=== PATIENT | female | born 1930 | race Caucasian/White ===

== ENCOUNTER 2017-07-28 12:05 | Inpatient (IN) ==
--- NOTE | 2017-07-28 13:07 | XRay Report ---
XR chest 1V portable Indication: Shortness of breath Comparison: 15 August 2015 Findings: The heart and mediastinum are normal in size and configuration. The pulmonary vascularity is normal in caliber. No lung infiltrates, effusions, pneumothorax or other abnormality is demonstrated. Impression: No acute cardiopulmonary disease. PROCEDURE INTERPRETED AT [facility] DEPARTMENT OF RADIOLOGY Final Report Signed by: Dr. Benito Fernandez
[2017-07-28 13:40] LABS: Basophils % 0.2 % (0.0-0.8); Eosinophils # 0.1 10*3/uL (0.0-0.87); Eosinophils % 0.7 % (0.00-10.9); Hematocrit 27.3 VOL% (35.7-47.0); Immature Granulocytes % 1.3 %; Immature Granulocytes Absolute 0.17 #; Lymphocytes # 0.5 10*3/uL (1.4-4.0); Lymphocytes % 3.8 % (21.3-54.2); Mean Corpuscular Hemoglobin 29 PG (27-34); Mean Corpuscular Volume 88.6 FL (87-102); Mean Platelet Volume 11.2 FL (9.6-12.0); Monocytes # 0.7 10*3/uL (0.11-0.8); Neutrophils # 11.5 10*3/uL (1.4-7.4); Platelet Count 129 T/CUMM (130-400); Red Blood Count 3.08 MC/CUMM (3.8-5.5); Red Cell Distribution Width 15.9 % (9.3-17.3); White Blood Count 12.9 T/CUMM (4-12)
[2017-07-28 14:16] LABS: Calcium 8.2 MG/DL (8.5-10.1); Osmolality,Calculated 288.8 MOS/KG (273-304); Potassium 4.2 MMOL/L (3.5-5.1)
--- NOTE | 2017-07-28 14:21 | Emergency Department Note ---
Hellen Abreu Brittany, am scribing for, and in the presence of, Mars Candelaria MD 13:01. Teagan Abreu Phillip K, MD, personally performed the services described in this documentation, ascribed by Coleen Macedo in my presence, and it is both accurate and complete 420 . Arrival - Arrival Chief Complaint: Upper Respiratory Stated Complaint: hard time breathing ED Nursing Triage Note: sore throat with cough and congestion and body aches - pt states that she is also having lower back pain Mode of Arrival: Wheelchair - History of Present Illness HPI Narrative: This is an 87 y/o white female,who presents to the ED with c/o URI-like Sx which started yesterday. She reports for the past 24 hours, she has been coughing and congestion. She notes a low grade fever and left-sided back pain. She denies any vomiting, diarrhea or MARTINO. Pt has no other complaints/pain in the ED at this time. Pt has a PMHx of thyroid disorder, HTN, renal problems, bowel obstruction, GI problems, GERD, back/neck problems, degenerative disk disease, anemia, OA, herniated disk, and musculoskeletal problems. Pt has had an appendectomy, abdominal surgery, hysterectomy, and EGD. PT has a family medical Hx of heart disease, stroke, HTN, and diabetes. Pt denies a social Hx. Onset (ago): day(s) (yesterday) Consistency: constant Severity: moderate Date of Last Menstrual Period: hyster Allergies/Adverse Reactions: Allergies Allergy/AdvReac Type Severity Reaction Status Date / Time amlodipine [From Norvasc] Allergy Mild RASH Verified 05/23/17 09:07 simvastatin Allergy Unknown Unknown/Unable Verified 05/23/17 09:07 to obtain Penicillins AdvReac Severe Swelling Verified 05/23/17 09:07 of Lip/Tongue/Throat adhesive AdvReac Mild BLISTER Verified 05/23/17 09:07 ezetimibe [From Zetia] AdvReac Unknown Unknown/Unable Verified 05/23/17 09:07 to obtain felodipine [From Plendil] AdvReac Unknown Unknown/Unable Verified 05/23/17 09:07 to obtain guanfacine [From Tenex] AdvReac Unknown Unknown/Unable Verified 05/23/17 09:07 to obtain Home Medications: Home Medications Medication Instructions Recorded Confirmed Type Furosemide Tab [Lasix Tab] 40 mg PO DAILY 05/23/15 05/22/17 History Levothyroxine Tab [Synthroid Tab] 75 mcg PO DAILY@0700 05/23/15 05/23/17 History NIFEdipine XL TAB [Procardia Xl] 30 mg PO BEDTIME 05/23/15 05/23/17 History Aspirin [Ecotrin] 81 mg PO BEDTIME 08/13/15 05/22/17 History Pregabalin [Lyrica] 75 mg PO DAILY 03/30/16 05/23/17 History Carvedilol 25 mg PO BID 04/27/17 05/23/17 History Multivit/Folic Acid/Vit K1 1 each PO DAILY 04/27/17 05/22/17 History [One-A-Day Women's 50 Plus Tab] Valsartan 320 mg PO DAILY 04/27/17 05/23/17 History cloNIDine TAB [Catapres Tab] 0.1 mg PO TID PRN 04/27/17 05/22/17 History hydrALAZINE TAB [Apresoline Tab] 100 mg PO TID 04/27/17 05/23/17 History Review of System - Review of System 12 point system: reviewed and no additional remarkable complaints except as stated - Review of System Constitutional: Present: fever (Low grade fever) Head/Ears/Nose/Throat: Present: sore throat Respiratory: Present: cough, other (Congestion ) Gastrointestinal: Absent: vomiting, diarrhea Musculoskeletal: Present: lower back pain (Left sided back pain ) Neurological: Absent: headache Medical,Surgical,& Family Hx - Medical History Cardio: History of: Hypertension (this has been managed by Dr. Pan and has been very high in the past) No history of: Aneurysm, Cardiac Dysrhythmia, Cerebrovascular Disease, Congenital Heart Disease, CHF, CAD, [place], Pacemaker, PVD, Valvular Heart Disease, Cardiovascular Problems Psychological: No history of: Anxiety Disorders, ADHD, Behavior Problems, Bipolar Disorder, Depression, Previous Suicide Attempt, Psychiatric/Substance Abuse Tx, Schizophrenia, Violent Behavior, Psychiatric Problems Neurology: No history of: Brain Aneurysm, Cerebral Hemorrhage, Cerebrovascular Accident , Cerebral Palsy, Dementia, Migraine, Multiple Sclerosis, Parkinson's Disease, Peripheral Neuropathy, Seizures, TIA, Vertigo, Neurologocal Cancer HEENT: History of: Eye Problem (GLASSES), Dental Problems (UPPER AND LOWER PARTIAL) No history of: Ear Problem, Glaucoma, HEENT Problems Endocrine: History of: Thyroid Disorder No history of: Adrenal Disease, Diabetes Mellitus (IDDM), Diabetes Mellitus ( NIDDM), Dyslipidemia, Endocrine Cancer, Endocrine Problems Rheumatology: No history of;: Fibromyalgia, Gout, Myasthenia Gravis, Rheumatoid Arthritis, Sjogrens, Systemic Lupus Erythematosus, Rheumatological Problems Respiratory: No history of: Asthma, Bronchitis, COPD, Intubation, Obstructive Sleep Apnea , Pulmonary Embolism, Pulmonary Hypertension, Pneumonia, Lung Cancer Comment Only: Respiratory Problems (FLU VAC- YES; PNEU VAC-?) Renal: History of: Renal Problems (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) No history of: Renal (Kidney) Cancer, Dialysis, Renal Failure Genitourinary: No history of: Bladder Problem, Kidney Stones, Recurring Urinary Tract Infections, Genitourinary Cancer, Problems Gastrointestinal: History of: Bowel Obstruction (bile duct surgery), GERD, GI Problems No history of: Clostridium Difficile, Crohn's Disease, Diverticulitis/ Diverticulosis, Esophageal Varices, Gastrointestinal Bleed, Hemorrhoids, Hematochezia, Hepatitis, Liver Problems, Pancreatitis, Polyps, Ulcerative Colitis, Gastrointestinal Cancer Musculoskeletal: History of: Back/Neck Problems, Degenerative Disk Disease ( deteriating disc. DR BRUNNER BACK INJECTIONS, LAST INJECTION 03/2017.), Herniated Disk, Osteoporosis, Musculoskeletal Problems No history of: Amputation, Musculoskeletal Cancer Hematology: History of: Anemia (BEING WORKED UP BY DR NGO) No history of: Blood Transfusion Reaction, Bleeding Problems, Clotting Problems, Sickle Cell Disease, Hematologic Cancer, Blood Disorders Reproductive: No history of: Abnormal Pap Smear, Breast Cancer, Endometriosis, Ectopic , Ovarian Cysts, Complication, Sexually Transmitted Disorders , Reproductive Cancer, Reproductive Problems Other: No history of: Anesthesia Reactions, Anaphylaxis, Cancer, Eczema, HIV, Malignant Hyperthermia, MRSA, Vancomycin-Resistant Enterococci, Skin Problems, Miscellaneous Medical Problems - Surgical History Cardiac Surgeries: Patient Denies: Femoral-Popliteal Bypass Graft, Cardiac Catheterization, Cardiac Surgery, Carotid Endarterectomy, Internal Defibrillator, Vascular Access Devices Thoracic Surgeries: Patient denies;: Kidney (Renal Surgery), Lithotripsy, Nephrectomy, Organ Transplant, Lobectomy Neurologic Surgeries: Patient denies: Brain Aneurysm, Cerebral Hemorrhage, Neurologic Surgery HEENT Surgeries: Patient denies: Carotid Endarterectomy, Eye Surgery, Thyroid Surgery, Tonsilectomy & Adenoidectomy Abdominal Surgeries: Surgical HX of: Abdominal Surgery, Appendectomy, EGD Patient denies: Cholecystectomy, Colonoscopy, Gastric Bypass Surgery, Hernia Repair, Splenectomy Reproductive Surgeries: Surgical HX of;: Hysterectomy (he thinks and ovary remains) Patient denies;: Breast Surgery, Section, Cystoscopy, Dilation and Curettage, Genitourinary Surgery, Gynecologic Surgery, Tubal Ligation Orthopedic Surgeries: Patient denies;: Implanted Devices, Orthopedic Surgery, Spinal Surgery, Total Hip Replacement, Total Knee Replacement - Family History Family History: Reports;: Family Diabetes (daughter), Family Heart Disease ( sister-mi), Family Hypertension (parents), Family Stroke (parents) Denies;: Family Anesthesia Reaction, Family Cancer, Family Psychiatric Problems - Social History Smoking Status: Never smoker Frequency of Alcohol Use: None Type of Drug Use: None Exam Vital Signs: Vital Signs Temperature 99.8 F H 07/28/17 12:15 Pulse Rate 79 07/28/17 12:15 Respiratory Rate 20 07/28/17 12:15 Blood Pressure 126/54 07/28/17 12:15 O2 Sat by Pulse Oximetry 96 07/28/17 12:12 - General General appearance: alert, in no apparent distress - Head Head exam: Present: atraumatic, normocephalic, normal inspection - Eye Eye exam: Present: normal appearance, PERRL, EOMI. Absent: nystagmus - ENT ENT exam: Present: normal oropharynx, mucous membranes moist - Neck Neck exam: Present: normal inspection, full ROM, trachea midline - Chest Chest inspection: Present: normal inspection, symmetric chest wall rise. Absent : tenderness - Respiratory Respiratory exam: Present: normal lung sounds bilaterally. Absent: respiratory distress, rhonchi, stridor, wheezes - Cardiovascular Cardiovascular exam: Present: regular rate, normal rhythm, normal heart sounds. Absent: murmur, rubs, gallop, clicks - Abdominal Exam Abdominal exam: Present: soft, normal bowel sounds. Absent: distention, tenderness, guarding, rebound, rigidity - Rectal Exam Rectal exam: Present: deferred - Extremities Exam Extremities exam: Present: normal inspection, full ROM, normal capillary refill. Absent: tenderness, pedal edema - Back Exam Back exam: Present: CVA tenderness (L). Absent: tenderness, muscle spasm, rashes - Neurological Exam Neurological exam: Present: alert, oriented X3, CN II-XII intact. Absent: motor sensory deficit - Psychiatric Psychiatric exam: Present: normal affect, normal mood. Absent: depressed, agitated, anxious, flat affect, manic - Skin Skin exam: Present: warm, dry, intact, normal color. Absent: rash, cyanosis, diaphoresis Course Course Narrative: Patient discussed with the hospitalist. Results - Labs CBC & BMP: 07/28/17 13:30 07/28/17 13:30 Lab Results: I have reviewed the patients labs Labs: Laboratory Tests 07/28/17 13:30 WBC 12.9 H RBC 3.08 L Hgb 9.0 L Hct 27.3 L MCV 88.6 MCH 29 MCHC 33.0 RDW 15.9 Plt Count 129 L MPV 11.2 Neut % (Auto) 89.0 H Lymph % (Auto) 3.8 L [place] % (Auto) 5.0 Eos % (Auto) 0.7 Baso % (Auto) 0.2 Neut # (Auto) 11.5 H Lymph # (Auto) 0.5 L [place] # (Auto) 0.7 Eos # (Auto) 0.1 Baso # (Auto) 0.0 Immature Gran % 1.3 Nucleated RBC % 0.0 Immature Gran # 0.17 Nucleated RBCs # 0.00 Immature Plt Fraction 0.0 Laboratory Tests 07/28/17 07/28/17 13:30 13:30 Sodium 137 Potassium 4.2 Chloride 107 Carbon Dioxide 24 Anion Gap 10.2 BUN 43 H Creatinine 1.80 H GFR Calculation 25 BUN/Creatinine Ratio 23.00 H Glucose 184 H Calculated Osmolality 288.8 Calcium 8.2 L Urine Color Emily Urine Appearance Cloudy Urine pH 5.0 Ur Specific [place] 1.013 Urine Protein 100 Urine Glucose (UA) Negative Urine Ketones Negative Urine Blood Negative Urine Nitrate Negative Urine Bilirubin Negative Urine Urobilinogen < 2.0 H Urine Leukocytes Large H Urine RBC 8 Urine WBC 63 Ur Squamous Epith Cells Many Urine Bacteria Many Urine Mucus Many Ur Culture Indicated? Results to follow Laboratory Tests 07/28/17 15:10 Urine Color Yellow Urine Appearance Slightly hazy Urine pH 5.0 Ur Specific [place] 1.013 Urine Protein 100 Urine Glucose (UA) Negative Urine Ketones Negative Urine Blood Negative Urine Nitrate Negative Urine Bilirubin Negative Urine Urobilinogen < 2.0 H Urine Leukocytes Negative Urine WBC 4 Ur Squamous Epith Cells Occasional Hyaline Casts 8 Urine Mucus Occasional - Diagnostic Findings Procedure: Chest x-ray: report reviewed by me (No acute cardiopulmonary disease) Disposition Clinical Impression: Fever unknown etiology, Anemia, Possible viral syndrome Case discussed with: patient Disposition: Still a Patient Condition: Guarded Additional Instructions: Admit to the hospitalist.
[2017-07-28 14:30] LABS: Apearance,Urine CLOUDY (Clear); Bacteria,Urine Many /HPF (Few); Bilirubin,Urine Negative (Negative); Blood, Urine Negative (Negative); Glucose,Urine (UA) Negative (Negative); Ketones,Urine Negative (Negative); Mucus,Urine Many /LPF (Occasional); Nitrite,Urine Negative (Negative); Protein,Urine 100 MG/DL; RBC,Urine 8 /HPF (0-4); Squamous Epithelial Cell,Urine Many /HPF (0-10); Urine Color Amber (Yellow); Urine Specific Gravity 1.013 (1.001-1.035); Urine Urobilinogen < 2.0 EU/DL (0.2-1.0); WBC,Urine 63 /HPF (0-6)
[2017-07-28 15:38] LABS: Apearance,Urine Slightly Hazy (Clear); Bilirubin,Urine Negative (Negative); Blood, Urine Negative (Negative); Glucose,Urine (UA) Negative (Negative); Hyaline Casts,Urine 8 /LPF (0-3); Ketones,Urine Negative (Negative); Mucus,Urine Occasional /LPF (Occasional); Nitrite,Urine Negative (Negative); Protein,Urine 100 MG/DL; Squamous Epithelial Cell,Urine Occasional /HPF (0-10); Urine Color Yellow (Yellow); Urine Specific Gravity 1.013 (1.001-1.035); Urine Urobilinogen < 2.0 EU/DL (0.2-1.0); WBC,Urine 4 /HPF (0-6)
[2017-07-28] MEDS ORDERED: SODIUM CHLORIDE 0.9% 500 ML IV ONE (17:00)
--- NOTE | 2017-07-28 17:07 | Hospitalist History & Physical ---
Assessment and Plan (1) Leukocytosis Status: Acute Assessment and plan: cxr negative, ua negative, sepsis order set used, lactic acid, NS bolus in ER, azithromycin IV, blood cx times 2, flu swab Current Visit: Yes (2) Acute renal failure Status: Acute Assessment and plan: gentle hydration with NS, Current Visit: Yes (3) Dehydration Status: Acute Assessment and plan: NS bolus, check orthostatics Current Visit: Yes (4) Thrombocytopenia Status: Acute Assessment and plan: chronic Current Visit: No (5) Anemia Status: Acute Assessment and plan: drop from 12 to 9, guaiac stool, protonix bid, cecelia Rasmussen asa Current Visit: Yes History of Present Illness Chief complaint: back pain History of present illness: Ms. Tran is a 87 year old female who presents to the ED with back pain. Patient gets injections every [address] James. Her last injection was in June 2017. She said her back is been hurting worse and that is what brought her into the emergency room. She denies any kind of fever she denies shortness of breath to me. She denies cough or congestion. She denies any chills. She has a low-grade fever. Chest x-ray is negative and her urine by straight cath was negative. Patient has diffuse muscle aches. We will do a flu swab. Pt has no other complaints/pain in the ED at this time. Pt has a PMHx of thyroid disorder, HTN, renal problems, bowel obstruction, GI problems, GERD, back/neck problems, degenerative disk disease, anemia, OA, herniated disk, and musculoskeletal problems. Pt has had an appendectomy, abdominal surgery, hysterectomy, and EGD. PT has a family medical Hx of heart disease, stroke, HTN , and diabetes. Pt denies a social Hx. Home Medications Medication Instructions Recorded Confirmed Type Furosemide Tab [Lasix Tab] 40 mg PO QAM 05/23/15 07/28/17 History Levothyroxine Tab [Synthroid Tab] 75 mcg PO DAILY@0700 05/23/15 07/28/17 History NIFEdipine XL TAB [Procardia Xl] 30 mg PO BEDTIME 05/23/15 07/28/17 History Aspirin [Ecotrin] 81 mg PO BEDTIME 08/13/15 07/28/17 History Pregabalin [Lyrica] 75 mg PO QAM 03/30/16 07/28/17 History Carvedilol 25 mg PO BID 04/27/17 07/28/17 History Multivit/Folic Acid/Vit K1 1 each PO QAM 04/27/17 07/28/17 History [One-A-Day Women's 50 Plus Tab] Valsartan 320 mg PO QAM 04/27/17 07/28/17 History cloNIDine TAB [Catapres Tab] 0.1 mg PO TID PRN 04/27/17 07/28/17 History hydrALAZINE TAB [Apresoline Tab] 100 mg PO TID 04/27/17 07/28/17 History Allergies Allergy/AdvReac Type Severity Reaction Status Date / Time amlodipine [From [facility]] Allergy Mild RASH Verified 05/23/17 09:07 simvastatin Allergy Unknown Unknown/Unable Verified 05/23/17 09:07 to obtain Penicillins AdvReac Severe Swelling Verified 05/23/17 09:07 of Lip/Tongue/Throat adhesive AdvReac Mild BLISTER Verified 05/23/17 09:07 ezetimibe [From Zetia] AdvReac Unknown Unknown/Unable Verified 05/23/17 09:07 to obtain felodipine [From Plendil] AdvReac Unknown Unknown/Unable Verified 05/23/17 09:07 to obtain guanfacine [From Tenex] AdvReac Unknown Unknown/Unable Verified 05/23/17 09:07 to obtain Medical,Surgical,& Family Hx - Medical History Cardio: History of: Hypertension (this has been managed by Dr. Pan and has been very high in the past) No history of: Aneurysm, Cardiac Dysrhythmia, Cerebrovascular Disease, Congenital Heart Disease, CHF, CAD, [place], Pacemaker, PVD, Valvular Heart Disease, Cardiovascular Problems Psychological: No history of: Anxiety Disorders, ADHD, Behavior Problems, Bipolar Disorder, Depression, Previous Suicide Attempt, Psychiatric/Substance Abuse Tx, Schizophrenia, Violent Behavior, Psychiatric Problems Neurology: No history of: Brain Aneurysm, Cerebral Hemorrhage, Cerebrovascular Accident , Cerebral Palsy, Dementia, Migraine, Multiple Sclerosis, Parkinson's Disease, Peripheral Neuropathy, Seizures, TIA, Vertigo, Neurologocal Cancer HEENT: History of: Eye Problem (GLASSES), Dental Problems (UPPER AND LOWER PARTIAL) No history of: Ear Problem, Glaucoma, HEENT Problems Endocrine: History of: Thyroid Disorder No history of: Adrenal Disease, Diabetes Mellitus (IDDM), Diabetes Mellitus ( NIDDM), Dyslipidemia, Endocrine Cancer, Endocrine Problems Rheumatology: No history of;: Fibromyalgia, Gout, Myasthenia Gravis, Rheumatoid Arthritis, Sjogrens, Systemic Lupus Erythematosus, Rheumatological Problems Respiratory: No history of: Asthma, Bronchitis, COPD, Intubation, Obstructive Sleep Apnea , Pulmonary Embolism, Pulmonary Hypertension, Pneumonia, Lung Cancer Comment Only: Respiratory Problems (FLU VAC- YES; PNEU VAC-?) Renal: History of: Renal Problems (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) No history of: Renal (Kidney) Cancer, Dialysis, Renal Failure Genitourinary: No history of: Bladder Problem, Kidney Stones, Recurring Urinary Tract Infections, Genitourinary Cancer, Problems Gastrointestinal: History of: Bowel Obstruction (bile duct surgery), GERD, GI Problems No history of: Clostridium Difficile, Crohn's Disease, Diverticulitis/ Diverticulosis, Esophageal Varices, Gastrointestinal Bleed, Hemorrhoids, Hematochezia, Hepatitis, Liver Problems, Pancreatitis, Polyps, Ulcerative Colitis, Gastrointestinal Cancer Musculoskeletal: History of: Back/Neck Problems, Degenerative Disk Disease ( deteriating disc. DR JAMES BACK INJECTIONS, LAST INJECTION 03/2017.), Herniated Disk, Osteoporosis, Musculoskeletal Problems No history of: Amputation, Musculoskeletal Cancer Hematology: History of: Anemia (BEING WORKED UP BY DR NGO) No history of: Blood Transfusion Reaction, Bleeding Problems, Clotting Problems, Sickle Cell Disease, Hematologic Cancer, Blood Disorders Reproductive: No history of: Abnormal Pap Smear, Breast Cancer, Endometriosis, Ectopic , Ovarian Cysts, Complication, Sexually Transmitted Disorders , Reproductive Cancer, Reproductive Problems Other: No history of: Anesthesia Reactions, Anaphylaxis, Cancer, Eczema, HIV, Malignant Hyperthermia, MRSA, Vancomycin-Resistant Enterococci, Skin Problems, Miscellaneous Medical Problems - Surgical History Cardiac Surgeries: Patient Denies: Femoral-Popliteal Bypass Graft, Cardiac Catheterization, Cardiac Surgery, Carotid Endarterectomy, Internal Defibrillator, Vascular Access Devices Thoracic Surgeries: Patient denies;: Kidney (Renal Surgery), Lithotripsy, Nephrectomy, Organ Transplant, Lobectomy Neurologic Surgeries: Patient denies: Brain Aneurysm, Cerebral Hemorrhage, Neurologic Surgery HEENT Surgeries: Patient denies: Carotid Endarterectomy, Eye Surgery, Thyroid Surgery, Tonsilectomy & Adenoidectomy Abdominal Surgeries: Surgical HX of: Abdominal Surgery, Appendectomy, EGD Patient denies: Cholecystectomy, Colonoscopy, Gastric Bypass Surgery, Hernia Repair, Splenectomy Reproductive Surgeries: Surgical HX of;: Hysterectomy (he thinks and ovary remains) Patient denies;: Breast Surgery, Section, Cystoscopy, Dilation and Curettage, Genitourinary Surgery, Gynecologic Surgery, Tubal Ligation Orthopedic Surgeries: Patient denies;: Implanted Devices, Orthopedic Surgery, Spinal Surgery, Total Hip Replacement, Total Knee Replacement - Family History Family History: Reports;: Family Diabetes (daughter), Family Heart Disease ( sister-mi), Family Hypertension (parents), Family Stroke (parents) Denies;: Family Anesthesia Reaction, Family Cancer, Family Psychiatric Problems - Social History Smoking Status: Never smoker Frequency of Alcohol Use: None Type of Drug Use: None Marital Status: Lives With:: Alone Functional capacity: independent ambulation - Constitutional Constitutional: Present: fatigue. Absent: fever(s), frequent falls, headache(s) - EENT Eyes: Absent: blurry vision, diplopia Ears: Absent: decreased hearing, ear discharge Nose, mouth and throat: Absent: headache(s), sore throat - Cardiovascular Cardiovascular: Absent: chest pain at rest, dyspnea, dyspnea on exertion, edema , lightheadedness - Respiratory Respiratory: Absent: cough, dyspnea, dyspnea on exertion, wheezing, change in phlegm color - Gastrointestinal Gastrointestinal: Absent: constipation, diarrhea, nausea, vomiting - Genitourinary Genitourinary: Absent: difficulty urinating, dysuria - Musculoskeletal Musculoskeletal: Present: arthralgias, back pain - Neurological Neurological: Absent: confusion, dizziness, headache(s), syncope - Psychiatric Psychiatric: Absent: anxiety, depression - Endocrine Endocrine: Absent: cold intolerance, fatigue, heat intolerance - Hematologic/Lymphatic Hematologic/Lymphatic: Absent: easy bleeding, easy bruising Exam - Constitutional Vitals: Period Temp Pulse Resp BP Sys/[place]all Pulse Ox Last 24 Hr 99.8 F-99.8 F 79-79 20-20 126-126/54-54 96 General appearance: normal weight, no acute distress - Head Head exam: Present: normal inspection, normocephalic - Eye Eye exam: Present: EOMI. Absent: scleral icterus Pupils: Present: ARGENIS, normal accommodation - ENT ENT exam: Present: normal exam, normal external ear exam - Neck Neck exam: Absent: lymphadenopathy, thyromegaly - Respiratory Respiratory exam: Present: clear to auscultation bilaterally. Absent: rhonchi, wheezes - Cardiovascular Cardiovascular exam: Present: regular rate and rhythm. Absent: systolic murmur - GI/Abdominal GI/Abdominal exam: Present: normal bowel sounds, soft. Absent: tenderness - Extremities Exam Extremities exam: Present: normal inspection, normal capillary refill - Neurological Exam Neurological exam: Present: alert, oriented X3. Absent: motor sensory deficit - Psychiatric Psychiatric exam: Present: normal affect, normal mood - Skin Skin exam: Present: normal color, warm Results - Labs CBC & BMP: 07/28/17 13:30 07/28/17 13:30 Lab Results: I have reviewed the past 24 hour labs Labs: UA negative - Diagnostic Findings Procedure: Chest x-ray: report reviewed by me (Nothing acute)
[2017-07-28] MEDS ORDERED: AZITHROMYCIN INJ 500 MG in SODIUM CHLORIDE 0.9% 250 ML IV SCH (18:00)
[2017-07-28 18:39] LABS: Band Neutrophils 1 % (0-10); Lymphocytes 3 % (20-55); Platelet Estimate Normal; Segmented Neutrophils 93 % (50-85); Total Cells Counted 100
[2017-07-28] MEDS: BISACODYL 5 MG TABLET PO SCH (18:46)
[2017-07-28] MEDS: SODIUM CHLORIDE 0.9% 1,000 ML IV SCH (18:46)
[2017-07-28 20:06] LABS: % Iron Saturation 5.6 % (18-50); Magnesium 2.5 MG/DL (1.8-2.4); Thyroid Stimulating Hormone 0.321 uIU/ml (0.358-3.74)
[2017-07-28] MEDS: PANTOPRAZOLE 40 MG TABLET PO SCH (20:45)
[2017-07-29] MEDS: LEVOTHYROXINE 75 MCG TABLET PO SCH (06:17)
[2017-07-29 06:30] LABS: Basophils % 0.1 % (0.0-0.8); Eosinophils % 0.1 % (0.00-10.9); Hematocrit 24.3 VOL% (35.7-47.0); Hemoglobin 7.8 GM/DL (12.0-16.0); Lymphocytes # 0.4 10*3/uL (1.4-4.0); Lymphocytes % 4.5 % (21.3-54.2); Mean Corpuscular HGB Conc 32.1 GM/DL (32-36); Mean Corpuscular Hemoglobin 29 PG (27-34); Mean Corpuscular Volume 89.7 FL (87-102); Mean Platelet Volume 11.6 FL (9.6-12.0); Monocytes # 0.5 10*3/uL (0.11-0.8); Neutrophils # 8.8 10*3/uL (1.4-7.4); Neutrophils % 89.3 % (38.7-73.9); Platelet Count 111 T/CUMM (130-400); Red Blood Count 2.71 MC/CUMM (3.8-5.5); White Blood Count 9.8 T/CUMM (4-12)
[2017-07-29 06:58] LABS: Calcium 7.4 MG/DL (8.5-10.1); Osmolality,Calculated 291.3 MOS/KG (273-304); Potassium 3.8 MMOL/L (3.5-5.1)
[2017-07-29 07:57] LABS: Hypochromasia 1+; Spherocytes Few
[2017-07-29] MEDS: BISACODYL 5 MG TABLET PO SCH (08:21)
[2017-07-29] MEDS: PANTOPRAZOLE 40 MG TABLET PO SCH ×2 (08:21→20:17)
[2017-07-29] MEDS: PREGABALIN 75 MG CAPSULE PO SCH (08:21)
[2017-07-29] MEDS: SODIUM CHLORIDE 0.9% 1,000 ML IV SCH (08:29)
[2017-07-29] MEDS: ALBUTEROL/IPRATROPIUM 3 ML NEB RESP TX SCH ×3 (12:15→19:59)
[2017-07-29] MEDS ORDERED: FUROSEMIDE 40 MG/4 ML VIAL ONE (12:46)
--- NOTE | 2017-07-29 12:52 | Pulmonology Consult Note ---
Assessment and Plan (1) Congestive heart failure Status: Acute Assessment and plan: Clinically she is in heart failure with bibasilar rales wheezing and radiographically. Not sure why. Will check cardiac isoenzymes, BNP and echo. Ask cardiology to see her. She has no history of chronic lung disease or asthma. Current Visit: Yes (2) Anemia Status: Acute Assessment and plan: A chronic anemia may be aggravating her congestive failure. Current Visit: Yes (3) Renal insufficiency Status: Acute Assessment and plan: Her creatinine is only slightly higher than it was 2 years ago at 1.8 compared to 1.4. Current Visit: Yes History of Present Illness Chief complaint: Shortness of breath History of present illness: Ms. Tran is a 87 year old female who was admitted yesterday with back pain. She had some renal insufficiency with a creatinine of 1.8 and was felt to be dehydrated. She did have an elevated white blood count and no fever. She was felt to possibly be septic and was given a bolus of saline yesterday and IV saline 75 mL an hour overnight. I was asked to see her when I was on rounds up here when Dr. Patiño had just seen her and said she was in respiratory distress. She does not have any known history of lung disease. She does have hypertension but no history of congestive heart failure that she is aware of. She is followed by Dr. Masterson for her hypertension. Reviewing her records she had a creatinine of 1.4-1.6 in 2014 and it was 1.8 on admission this time. Home Medications Medication Instructions Recorded Confirmed Type Furosemide Tab [Lasix Tab] 40 mg PO QAM 05/23/15 07/28/17 History Levothyroxine Tab [Synthroid Tab] 75 mcg PO DAILY@0700 05/23/15 07/28/17 History NIFEdipine XL TAB [Procardia Xl] 30 mg PO BEDTIME 05/23/15 07/28/17 History Aspirin [Ecotrin] 81 mg PO BEDTIME 08/13/15 07/28/17 History Pregabalin [Lyrica] 75 mg PO QAM 03/30/16 07/28/17 History Carvedilol 25 mg PO BID 04/27/17 07/28/17 History Multivit/Folic Acid/Vit K1 1 each PO QAM 04/27/17 07/28/17 History [One-A-Day Women's 50 Plus Tab] Valsartan 320 mg PO QAM 04/27/17 07/28/17 History cloNIDine TAB [Catapres Tab] 0.1 mg PO TID PRN 04/27/17 07/28/17 History hydrALAZINE TAB [Apresoline Tab] 100 mg PO TID 04/27/17 07/28/17 History Allergies Allergy/AdvReac Type Severity Reaction Status Date / Time amlodipine [From Norvasc] Allergy Mild RASH Verified 05/23/17 09:07 simvastatin Allergy Unknown Unknown/Unable Verified 05/23/17 09:07 to obtain Penicillins AdvReac Severe Swelling Verified 05/23/17 09:07 of Lip/Tongue/Throat adhesive AdvReac Mild BLISTER Verified 05/23/17 09:07 ezetimibe [From Zetia] AdvReac Unknown Unknown/Unable Verified 05/23/17 09:07 to obtain felodipine [From Plendil] AdvReac Unknown Unknown/Unable Verified 05/23/17 09:07 to obtain guanfacine [From Tenex] AdvReac Unknown Unknown/Unable Verified 05/23/17 09:07 to obtain 12 point system: reviewed and no additional remarkable complaints except as stated - Constitutional Constitutional: Present: fatigue - Cardiovascular Cardiovascular: Present: dyspnea, dyspnea on exertion - Respiratory Respiratory: Present: dyspnea, dyspnea on exertion, wheezing - Musculoskeletal Musculoskeletal: Present: arthralgias, back pain Exam (Pulmon[place]) H&P - Constitutional Vitals: Period Temp Pulse Resp BP Sys/Woodall Pulse Ox Last 24 Hr 97.3 F-99.9 F 74-84 18-29 119-153/49-95 87-99 Exam: Patient is anxious. O2 sat 88% on 2 L. Pupils react to light. Throat is clear. Neck supple no bruits. There is some jugular venous distention. Chest reveals bibasilar rales. I do hear some expiratory wheezes. Heart rate is around 90. No murmurs. Abdomen soft nontender no masses. Bowel sounds present. Extremities no clubbing or cyanosis trace of edema. Calves nontender. Medical,Surgical,& Family Hx - Medical History Cardio: History of: Hypertension (this has been managed by Dr. Pan and has been very high in the past) No history of: Aneurysm, Cardiac Dysrhythmia, Cerebrovascular Disease, Congenital Heart Disease, CHF, CAD, [place], Pacemaker, PVD, Valvular Heart Disease, Cardiovascular Problems Psychological: No history of: Anxiety Disorders, ADHD, Behavior Problems, Bipolar Disorder, Depression, Previous Suicide Attempt, Psychiatric/Substance Abuse Tx, Schizophrenia, Violent Behavior, Psychiatric Problems Neurology: No history of: Brain Aneurysm, Cerebral Hemorrhage, Cerebrovascular Accident , Cerebral Palsy, Dementia, Migraine, Multiple Sclerosis, Parkinson's Disease, Peripheral Neuropathy, Seizures, TIA, Vertigo, Neurologocal Cancer HEENT: History of: Eye Problem (GLASSES), Dental Problems (UPPER AND LOWER PARTIAL) No history of: Ear Problem, Glaucoma, HEENT Problems Endocrine: History of: Thyroid Disorder No history of: Adrenal Disease, Diabetes Mellitus (IDDM), Diabetes Mellitus ( NIDDM), Dyslipidemia, Endocrine Cancer, Endocrine Problems Rheumatology: No history of;: Fibromyalgia, Gout, Myasthenia Gravis, Rheumatoid Arthritis, Sjogrens, Systemic Lupus Erythematosus, Rheumatological Problems Respiratory: No history of: Asthma, Bronchitis, COPD, Intubation, Obstructive Sleep Apnea , Pulmonary Embolism, Pulmonary Hypertension, Pneumonia, Lung Cancer Comment Only: Respiratory Problems (FLU VAC- YES; PNEU VAC-?) Renal: History of: Renal Problems (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) No history of: Renal (Kidney) Cancer, Dialysis, Renal Failure Genitourinary: No history of: Bladder Problem, Kidney Stones, Recurring Urinary Tract Infections, Genitourinary Cancer, Problems Gastrointestinal: History of: Bowel Obstruction (bile duct surgery), GERD, GI Problems No history of: Clostridium Difficile, Crohn's Disease, Diverticulitis/ Diverticulosis, Esophageal Varices, Gastrointestinal Bleed, Hemorrhoids, Hematochezia, Hepatitis, Liver Problems, Pancreatitis, Polyps, Ulcerative Colitis, Gastrointestinal Cancer Musculoskeletal: History of: Back/Neck Problems, Degenerative Disk Disease ( deteriating disc. DR BRUNNER BACK INJECTIONS, LAST INJECTION 03/2017.), Herniated Disk, Osteoporosis, Musculoskeletal Problems No history of: Amputation, Musculoskeletal Cancer Hematology: History of: Anemia (BEING WORKED UP BY DR NGO) No history of: Blood Transfusion Reaction, Bleeding Problems, Clotting Problems, Sickle Cell Disease, Hematologic Cancer, Blood Disorders Reproductive: No history of: Abnormal Pap Smear, Breast Cancer, Endometriosis, Ectopic , Ovarian Cysts, Complication, Sexually Transmitted Disorders , Reproductive Cancer, Reproductive Problems Other: No history of: Anesthesia Reactions, Anaphylaxis, Cancer, Eczema, HIV, Malignant Hyperthermia, MRSA, Vancomycin-Resistant Enterococci, Skin Problems, Miscellaneous Medical Problems - Surgical History Cardiac Surgeries: Patient Denies: Femoral-Popliteal Bypass Graft, Cardiac Catheterization, Cardiac Surgery, Carotid Endarterectomy, Internal Defibrillator, Vascular Access Devices Thoracic Surgeries: Patient denies;: Kidney (Renal Surgery), Lithotripsy, Nephrectomy, Organ Transplant, Lobectomy Neurologic Surgeries: Patient denies: Brain Aneurysm, Cerebral Hemorrhage, Neurologic Surgery HEENT Surgeries: Patient denies: Carotid Endarterectomy, Eye Surgery, Thyroid Surgery, Tonsilectomy & Adenoidectomy Abdominal Surgeries: Surgical HX of: Abdominal Surgery, Appendectomy, EGD Patient denies: Cholecystectomy, Colonoscopy, Gastric Bypass Surgery, Hernia Repair, Splenectomy Reproductive Surgeries: Surgical HX of;: Hysterectomy (he thinks and ovary remains) Patient denies;: Breast Surgery, Section, Cystoscopy, Dilation and Curettage, Genitourinary Surgery, Gynecologic Surgery, Tubal Ligation Orthopedic Surgeries: Patient denies;: Implanted Devices, Orthopedic Surgery, Spinal Surgery, Total Hip Replacement, Total Knee Replacement - Family History Family History: Reports;: Family Diabetes (daughter), Family Heart Disease ( sister-mi), Family Hypertension (parents), Family Stroke (parents) Denies;: Family Anesthesia Reaction, Family Cancer, Family Psychiatric Problems - Social History Smoking Status: Never smoker Frequency of Alcohol Use: None Type of Drug Use: None Results - Labs CBC & BMP: 07/29/17 06:13 07/29/17 06:13 Lab Results: I have reviewed the past 24 hour labs - Diagnostic Findings Procedure: Chest x-ray: image reviewed by me (Today's x-ray shows increased interstitial markings and fluid in the minor fissure as well as probably a small right pleural effusion and cardiomegaly. Consistent with congestive heart failure.)
[2017-07-29] MEDS ORDERED: NITROGLYCERIN SL 0.4 MG TABLET SL ONE ×2 (12:54→12:55)
[2017-07-29] MEDS ORDERED: FUROSEMIDE 40 MG/4 ML VIAL IV SCH (13:00)
--- NOTE | 2017-07-29 13:16 | EKG Report ---
Stationary ECG Study [facility] Test Date: 07/29/2017 1:15:01 PM Pat Name: SARINA SANDOVAL Department: Room: 532 Gender: F Co Founder: HAKEEM : 1930 Requested by: Brian Carmichael Order Number: [id number] Reading MD: COREEN MCKINNEY Intervals [place] Rate: 83 P: 76 [place]: 138 QRS: 52 QRSD: 88 T: -12 QT: 351 QTc: 391 Interpretive Statements SINUS RHYTHM WITH SUPRAVENTRICULAR PREMATURE COMPLEXES NONSPECIFIC T-WAVE ABNORMALITY Electronically Signed On 07-29-17 21:45:27 CDT by COREEN MCKINNEY [email or web address]
--- NOTE | 2017-07-29 13:16 | Gastrointestinal Consult Note ---
Assessment and Plan (1) Iron deficiency anemia Status: Acute Assessment and plan: Iron deficient anemia no active evidence of active GI blood loss at this time. Would consider transfusion to help with her shortness of breath. At this point will not plan a GI evaluation until her pulmonary status is more stable. Continue PPI treatment and monitor for evidence of active bleeding. Current Visit: Yes (2) Dyspnea Status: Acute Assessment and plan: No prior history of COPD. She is having no cardiac symptoms at present. Will ask pulmonary to evaluate. Current Visit: Yes History of Present Illness Chief complaint: Anemia History of present illness: Ms. Tarn is a 87 year old female Admitted with shortness of breath found to be anemic with iron deficient indices. Patient denies any clinical history of any recent GI bleeding and basically states that she is unconcerned with her anemia at this point as her breathing is been so poor. She denies any nonsteroidal use she is on no blood thinners. She is unsure when she had GI workup done in the past but at this point complains of no bowel changes no heartburn or indigestion. No dysphagia is reported. Home Medications Medication Instructions Recorded Confirmed Type Furosemide Tab [Lasix Tab] 40 mg PO QAM 05/23/15 07/28/17 History Levothyroxine Tab [Synthroid Tab] 75 mcg PO DAILY@0700 05/23/15 07/28/17 History NIFEdipine XL TAB [Procardia Xl] 30 mg PO BEDTIME 05/23/15 07/28/17 History Aspirin [Ecotrin] 81 mg PO BEDTIME 08/13/15 07/28/17 History Pregabalin [Lyrica] 75 mg PO QAM 03/30/16 07/28/17 History Carvedilol 25 mg PO BID 04/27/17 07/28/17 History Multivit/Folic Acid/Vit K1 1 each PO QAM 04/27/17 07/28/17 History [One-A-Day Women's 50 Plus Tab] Valsartan 320 mg PO QAM 04/27/17 07/28/17 History cloNIDine TAB [Catapres Tab] 0.1 mg PO TID PRN 04/27/17 07/28/17 History hydrALAZINE TAB [Apresoline Tab] 100 mg PO TID 04/27/17 07/28/17 History Allergies Allergy/AdvReac Type Severity Reaction Status Date / Time amlodipine [From Norvasc] Allergy Mild RASH Verified 05/23/17 09:07 simvastatin Allergy Unknown Unknown/Unable Verified 05/23/17 09:07 to obtain Penicillins AdvReac Severe Swelling Verified 05/23/17 09:07 of Lip/Tongue/Throat adhesive AdvReac Mild BLISTER Verified 05/23/17 09:07 ezetimibe [From Zetia] AdvReac Unknown Unknown/Unable Verified 05/23/17 09:07 to obtain felodipine [From Plendil] AdvReac Unknown Unknown/Unable Verified 05/23/17 09:07 to obtain guanfacine [From Tenex] AdvReac Unknown Unknown/Unable Verified 05/23/17 09:07 to obtain Medical,Surgical,& Family Hx - Medical History Cardio: History of: Hypertension (this has been managed by Dr. Pan and has been very high in the past) No history of: Aneurysm, Cardiac Dysrhythmia, Cerebrovascular Disease, Congenital Heart Disease, CHF, CAD, [place], Pacemaker, PVD, Valvular Heart Disease, Cardiovascular Problems Psychological: No history of: Anxiety Disorders, ADHD, Behavior Problems, Bipolar Disorder, Depression, Previous Suicide Attempt, Psychiatric/Substance Abuse Tx, Schizophrenia, Violent Behavior, Psychiatric Problems Neurology: No history of: Brain Aneurysm, Cerebral Hemorrhage, Cerebrovascular Accident , Cerebral Palsy, Dementia, Migraine, Multiple Sclerosis, Parkinson's Disease, Peripheral Neuropathy, Seizures, TIA, Vertigo, Neurologocal Cancer HEENT: History of: Eye Problem (GLASSES), Dental Problems (UPPER AND LOWER PARTIAL) No history of: Ear Problem, Glaucoma, HEENT Problems Endocrine: History of: Thyroid Disorder No history of: Adrenal Disease, Diabetes Mellitus (IDDM), Diabetes Mellitus ( NIDDM), Dyslipidemia, Endocrine Cancer, Endocrine Problems Rheumatology: No history of;: Fibromyalgia, Gout, Myasthenia Gravis, Rheumatoid Arthritis, Sjogrens, Systemic Lupus Erythematosus, Rheumatological Problems Respiratory: No history of: Asthma, Bronchitis, COPD, Intubation, Obstructive Sleep Apnea , Pulmonary Embolism, Pulmonary Hypertension, Pneumonia, Lung Cancer Comment Only: Respiratory Problems (FLU VAC- YES; PNEU VAC-?) Renal: History of: Renal Problems (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) No history of: Renal (Kidney) Cancer, Dialysis, Renal Failure Genitourinary: No history of: Bladder Problem, Kidney Stones, Recurring Urinary Tract Infections, Genitourinary Cancer, Problems Gastrointestinal: History of: Bowel Obstruction (bile duct surgery), GERD, GI Problems No history of: Clostridium Difficile, Crohn's Disease, Diverticulitis/ Diverticulosis, Esophageal Varices, Gastrointestinal Bleed, Hemorrhoids, Hematochezia, Hepatitis, Liver Problems, Pancreatitis, Polyps, Ulcerative Colitis, Gastrointestinal Cancer Musculoskeletal: History of: Back/Neck Problems, Degenerative Disk Disease ( deteriating disc. DR BRUNNER BACK INJECTIONS, LAST INJECTION 03/2017.), Herniated Disk, Osteoporosis, Musculoskeletal Problems No history of: Amputation, Musculoskeletal Cancer Hematology: History of: Anemia (BEING WORKED UP BY DR NGO) No history of: Blood Transfusion Reaction, Bleeding Problems, Clotting Problems, Sickle Cell Disease, Hematologic Cancer, Blood Disorders Reproductive: No history of: Abnormal Pap Smear, Breast Cancer, Endometriosis, Ectopic , Ovarian Cysts, Complication, Sexually Transmitted Disorders , Reproductive Cancer, Reproductive Problems Other: No history of: Anesthesia Reactions, Anaphylaxis, Cancer, Eczema, HIV, Malignant Hyperthermia, MRSA, Vancomycin-Resistant Enterococci, Skin Problems, Miscellaneous Medical Problems - Surgical History Cardiac Surgeries: Patient Denies: Femoral-Popliteal Bypass Graft, Cardiac Catheterization, Cardiac Surgery, Carotid Endarterectomy, Internal Defibrillator, Vascular Access Devices Thoracic Surgeries: Patient denies;: Kidney (Renal Surgery), Lithotripsy, Nephrectomy, Organ Transplant, Lobectomy Neurologic Surgeries: Patient denies: Brain Aneurysm, Cerebral Hemorrhage, Neurologic Surgery HEENT Surgeries: Patient denies: Carotid Endarterectomy, Eye Surgery, Thyroid Surgery, Tonsilectomy & Adenoidectomy Abdominal Surgeries: Surgical HX of: Abdominal Surgery, Appendectomy, EGD Patient denies: Cholecystectomy, Colonoscopy, Gastric Bypass Surgery, Hernia Repair, Splenectomy Reproductive Surgeries: Surgical HX of;: Hysterectomy (he thinks and ovary remains) Patient denies;: Breast Surgery, Section, Cystoscopy, Dilation and Curettage, Genitourinary Surgery, Gynecologic Surgery, Tubal Ligation Orthopedic Surgeries: Patient denies;: Implanted Devices, Orthopedic Surgery, Spinal Surgery, Total Hip Replacement, Total Knee Replacement - Family History Family History: Reports;: Family Diabetes (daughter), Family Heart Disease ( sister-mi), Family Hypertension (parents), Family Stroke (parents) Denies;: Family Anesthesia Reaction, Family Cancer, Family Psychiatric Problems - Social History Smoking Status: Never smoker Frequency of Alcohol Use: None Type of Drug Use: None - Constitutional Constitutional: Absent: anorexia, chills, fatigue, fever(s) - EENT Eyes: Absent: blurry vision Ears: Absent: decreased hearing Nose, mouth and throat: Absent: dysphagia, epistaxis - Cardiovascular Cardiovascular: Absent: chest pain at rest, chest pain with activity, edema - Respiratory Respiratory: Present: dyspnea, wheezing - Gastrointestinal Gastrointestinal: Absent: abdominal pain, bloating, change in bowel habits, melena, nausea - Neurological Neurological: Absent: abnormal gait, abnormal speech - Psychiatric Psychiatric: Absent: anxiety, confusion - Hematologic/Lymphatic Hematologic/Lymphatic: Absent: easy bleeding, easy bruising, lymphadenopathy Exam - Constitutional Vitals: Period Temp Pulse Resp BP Sys/Woodall Pulse Ox Last 24 Hr 97.3 F-99.9 F 74-84 18-29 119-153/49-95 87-99 General appearance: normal weight, mild distress - Head Head exam: Present: normal inspection, normocephalic, atraumatic - Eye Eye exam: Present: EOMI. Absent: conjunctival injection, scleral icterus Pupils: Present: ARGENIS. Absent: dilated, irregular - ENT ENT exam: Present: normal oropharynx - Neck Neck exam: Absent: lymphadenopathy, thyromegaly - Respiratory Respiratory exam: Present: rales, wheezes. Absent: accessory muscle use - Cardiovascular Cardiovascular exam: Present: regular rate and rhythm. Absent: systolic murmur - GI/Abdominal GI/Abdominal exam: Present: soft. Absent: ascites, distended, tenderness - Extremities Exam Extremities exam: Absent: edema - Neurological Exam Neurological exam: Present: alert, oriented X3 - Psychiatric Psychiatric exam: Present: normal affect, normal mood - Skin Skin exam: Present: warm, dry Results - Labs CBC & BMP: 07/29/17 06:13 07/29/17 06:13 Lab Results: I have reviewed the past 24 hour labs
[2017-07-29 13:18] LABS: ABG Base Excess -6.7 MMOL/L (-2.5-2.5); ABG HCO3 18.9 MMOL/L (20-26); ABG Oxygen Saturation 99.2 % (95-100); ABG PCO2 37.7 MM HG (35-48); ABG TCO2 17.7 MMOL/L (23-27)
--- NOTE | 2017-07-29 13:37 | XRay Report ---
Single view the chest. Indication: Shortness of breath and wheezing. Comparison: July 28, 2017. The heart is enlarged. The pulmonary vasculature is prominent. The interstitial lung markings are worsened. There are small left greater than right pleural effusions. Impression: Findings of congestive heart failure, with interval worsening. PROCEDURE INTERPRETED AT [facility] DEPARTMENT OF RADIOLOGY Final Report Signed by: Dr. Romy Perez
--- NOTE | 2017-07-29 13:41 | Cardiology Consult Note ---
Assessment and Plan (1) Congestive heart failure Status: Acute Assessment and plan: I will push diuresis and offloading as tolerated. We will review echo when available Current Visit: Yes (2) Dyspnea Status: Acute Current Visit: Yes (3) Renal insufficiency Status: Acute Current Visit: Yes History of Present Illness - Data of Consult Patient: known to practice within the last 3 years - Consult Narrative Reason for consult: Worsening dyspnea History of present illness: Ms. Tran is a 87 year old female who sees Dr. 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 She has a history of hypertension and has been on multiple antihypertensive medicines. She has had a history of recurring congestive heart failure. She presents with increasing dyspnea which he says started about a 4 days ago. She has had wheezing and cough but no fever or chills. Her chest x-ray is consistent with congestive heart failure and she has been started on some diuretic. She denies angina she has had no history of syncope or palpitations. I am asked to see her to evaluate in follow-up for heart failure. An echocardiogram is pending. CC: Uvaldo Jones MD - Home Medications and Allergies Home Medications: Home Medications Medication Instructions Recorded Confirmed Type Furosemide Tab [Lasix Tab] 40 mg PO QAM 05/23/15 07/28/17 History Levothyroxine Tab [Synthroid Tab] 75 mcg PO DAILY@0700 05/23/15 07/28/17 History NIFEdipine XL TAB [Procardia Xl] 30 mg PO BEDTIME 05/23/15 07/28/17 History Aspirin [Ecotrin] 81 mg PO BEDTIME 08/13/15 07/28/17 History Pregabalin [Lyrica] 75 mg PO QAM 03/30/16 07/28/17 History Carvedilol 25 mg PO BID 04/27/17 07/28/17 History Multivit/Folic Acid/Vit K1 1 each PO QAM 04/27/17 07/28/17 History [One-A-Day Women's 50 Plus Tab] Valsartan 320 mg PO QAM 04/27/17 07/28/17 History cloNIDine TAB [Catapres Tab] 0.1 mg PO TID PRN 04/27/17 07/28/17 History hydrALAZINE TAB [Apresoline Tab] 100 mg PO TID 04/27/17 07/28/17 History Allergies/Adverse Reactions: Allergies Allergy/AdvReac Type Severity Reaction Status Date / Time amlodipine [From Norvasc] Allergy Mild RASH Verified 05/23/17 09:07 simvastatin Allergy Unknown Unknown/Unable Verified 05/23/17 09:07 to obtain Penicillins AdvReac Severe Swelling Verified 05/23/17 09:07 of Lip/Tongue/Throat adhesive AdvReac Mild BLISTER Verified 05/23/17 09:07 ezetimibe [From Zetia] AdvReac Unknown Unknown/Unable Verified 05/23/17 09:07 to obtain felodipine [From Plendil] AdvReac Unknown Unknown/Unable Verified 05/23/17 09:07 to obtain guanfacine [From Tenex] AdvReac Unknown Unknown/Unable Verified 05/23/17 09:07 to obtain Medical,Surgical,& Family Hx - Medical History Cardio: History of: Hypertension (this has been managed by Dr. Pan and has been very high in the past) No history of: Aneurysm, Cardiac Dysrhythmia, Cerebrovascular Disease, Congenital Heart Disease, CHF, CAD, [place], Pacemaker, PVD, Valvular Heart Disease, Cardiovascular Problems Psychological: No history of: Anxiety Disorders, ADHD, Behavior Problems, Bipolar Disorder, Depression, Previous Suicide Attempt, Psychiatric/Substance Abuse Tx, Schizophrenia, Violent Behavior, Psychiatric Problems Neurology: No history of: Brain Aneurysm, Cerebral Hemorrhage, Cerebrovascular Accident , Cerebral Palsy, Dementia, Migraine, Multiple Sclerosis, Parkinson's Disease, Peripheral Neuropathy, Seizures, TIA, Vertigo, Neurologocal Cancer HEENT: History of: Eye Problem (GLASSES), Dental Problems (UPPER AND LOWER PARTIAL) No history of: Ear Problem, Glaucoma, HEENT Problems Endocrine: History of: Thyroid Disorder No history of: Adrenal Disease, Diabetes Mellitus (IDDM), Diabetes Mellitus ( NIDDM), Dyslipidemia, Endocrine Cancer, Endocrine Problems Rheumatology: No history of;: Fibromyalgia, Gout, Myasthenia Gravis, Rheumatoid Arthritis, Sjogrens, Systemic Lupus Erythematosus, Rheumatological Problems Respiratory: No history of: Asthma, Bronchitis, COPD, Intubation, Obstructive Sleep Apnea , Pulmonary Embolism, Pulmonary Hypertension, Pneumonia, Lung Cancer Comment Only: Respiratory Problems (FLU VAC- YES; PNEU VAC-?) Renal: History of: Renal Problems (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) No history of: Renal (Kidney) Cancer, Dialysis, Renal Failure Genitourinary: No history of: Bladder Problem, Kidney Stones, Recurring Urinary Tract Infections, Genitourinary Cancer, Problems Gastrointestinal: History of: Bowel Obstruction (bile duct surgery), GERD, GI Problems No history of: Clostridium Difficile, Crohn's Disease, Diverticulitis/ Diverticulosis, Esophageal Varices, Gastrointestinal Bleed, Hemorrhoids, Hematochezia, Hepatitis, Liver Problems, Pancreatitis, Polyps, Ulcerative Colitis, Gastrointestinal Cancer Musculoskeletal: History of: Back/Neck Problems, Degenerative Disk Disease ( deteriating disc. DR BRUNNER BACK INJECTIONS, LAST INJECTION 03/2017.), Herniated Disk, Osteoporosis, Musculoskeletal Problems No history of: Amputation, Musculoskeletal Cancer Hematology: History of: Anemia (BEING WORKED UP BY DR NGO) No history of: Blood Transfusion Reaction, Bleeding Problems, Clotting Problems, Sickle Cell Disease, Hematologic Cancer, Blood Disorders Reproductive: No history of: Abnormal Pap Smear, Breast Cancer, Endometriosis, Ectopic , Ovarian Cysts, Complication, Sexually Transmitted Disorders , Reproductive Cancer, Reproductive Problems Other: No history of: Anesthesia Reactions, Anaphylaxis, Cancer, Eczema, HIV, Malignant Hyperthermia, MRSA, Vancomycin-Resistant Enterococci, Skin Problems, Miscellaneous Medical Problems - Surgical History Cardiac Surgeries: Patient Denies: Femoral-Popliteal Bypass Graft, Cardiac Catheterization, Cardiac Surgery, Carotid Endarterectomy, Internal Defibrillator, Vascular Access Devices Thoracic Surgeries: Patient denies;: Kidney (Renal Surgery), Lithotripsy, Nephrectomy, Organ Transplant, Lobectomy Neurologic Surgeries: Patient denies: Brain Aneurysm, Cerebral Hemorrhage, Neurologic Surgery HEENT Surgeries: Patient denies: Carotid Endarterectomy, Eye Surgery, Thyroid Surgery, Tonsilectomy & Adenoidectomy Abdominal Surgeries: Surgical HX of: Abdominal Surgery, Appendectomy, EGD Patient denies: Cholecystectomy, Colonoscopy, Gastric Bypass Surgery, Hernia Repair, Splenectomy Reproductive Surgeries: Surgical HX of;: Hysterectomy (he thinks and ovary remains) Patient denies;: Breast Surgery, Section, Cystoscopy, Dilation and Curettage, Genitourinary Surgery, Gynecologic Surgery, Tubal Ligation Orthopedic Surgeries: Patient denies;: Implanted Devices, Orthopedic Surgery, Spinal Surgery, Total Hip Replacement, Total Knee Replacement - Family History Family History: Reports;: Family Diabetes (daughter), Family Heart Disease ( sister-mi), Family Hypertension (parents), Family Stroke (parents) Denies;: Family Anesthesia Reaction, Family Cancer, Family Psychiatric Problems - Social History Smoking Status: Never smoker Frequency of Alcohol Use: None Type of Drug Use: None Physical Examination Vital Signs Resp 20 07/28/17 12:10 Exam: Physical examination: General: The patient is awake and alert and oriented -3. Mood and affect are normal. HEENT: Normocephalic, sclera are clear there are no lid xanthelasmas noted. Oral mucosa is free of cyanosis or pallor. Neck: The neck is supple without JVD. Carotid upstrokes are normal volume and amplitude. There is no audible bruit. There is no palpable thyroid. Trachea is midline. Chest: Lungs: The patient is dyspneic at rest with 100% rebreather on without intercostal retractions or abdominal breathing. She has inspiratory and expiratory wheezes noted. Cardiovascular: The PMI is nondisplaced. No palpable thrill S3 or S4. There is a regular rate and rhythm with no murmur rub or gallop noted. Dorsalis pedis posterior tibial and femoral pulses are 2+ and equal bilaterally. Abdomen: Abdomen is soft and nontender with normal active bowel sounds. There is no palpable mass or organomegaly noted. There is no midline bruit. Extremities exam: There is no cyanosis clubbing or edema. Skin: Skin is warm and dry without ecchymosis or urticaria or skin rash. There are no palpable nodules. Musculoskeletal: There is no kyphosis or scoliosis noted. Result/EKG - Labs CBC & BMP: 07/29/17 06:13 07/29/17 06:13 Labs: Laboratory Results - last 24 hr 07/28/17 07/28/17 07/28/17 13:30 13:30 13:30 WBC 12.9 H RBC 3.08 L Hgb 9.0 L Hct 27.3 L MCV 88.6 MCH 29 MCHC 33.0 RDW 15.9 Plt Count 129 L MPV 11.2 Neut % (Auto) 89.0 H Lymph % (Auto) 3.8 L Gates % (Auto) 5.0 Eos % (Auto) 0.7 Baso % (Auto) 0.2 Neut # (Auto) 11.5 H Lymph # (Auto) 0.5 L Gates # (Auto) 0.7 Eos # (Auto) 0.1 Baso # (Auto) 0.0 Total Counted 100 Immature Gran % 1.3 Nucleated RBC % 0.0 Immature Gran # 0.17 Segmented Neutrophils 93 H Band Neutrophils 1 Lymphocytes 3 L Monocytes 3 Nucleated RBCs # 0.00 Platelet Estimate Normal Immature Plt Fraction 0.0 Hypochromasia Spherocytes Absolute Retic Percent Retic Retic Hgb Equivalent ABG pH ABG pCO2 ABG pO2 ABG HCO3 ABG Total CO2 ABG O2 Saturation ABG Base Excess Sodium 137 Potassium 4.2 Chloride 107 Carbon Dioxide 24 Anion Gap 10.2 BUN 43 H Creatinine 1.80 H GFR Calculation 25 BUN/Creatinine Ratio 23.00 H Glucose 184 H POC Glucose Calculated Osmolality 288.8 Lactic Acid Calcium 8.2 L Magnesium Iron TIBC % Saturation Ferritin Vitamin B12 Folate TSH 3rd Generation Urine Color Emily Urine Appearance Cloudy Urine pH 5.0 Ur Specific Eckley 1.013 Urine Protein 100 Urine Glucose (UA) Negative Urine Ketones Negative Urine Blood Negative Urine Nitrate Negative Urine Bilirubin Negative Urine Urobilinogen < 2.0 H Urine Leukocytes Large H Urine RBC 8 Urine WBC 63 Ur Squamous Epith Cells Many Urine Bacteria Many Hyaline Casts Urine Mucus Many Ur Culture Indicated? Results to follow 07/28/17 07/28/17 07/28/17 15:10 18:24 19:19 WBC RBC Hgb Hct MCV MCH MCHC RDW Plt Count MPV Neut % (Auto) Lymph % (Auto) Gates % (Auto) Eos % (Auto) Baso % (Auto) Neut # (Auto) Lymph # (Auto) Gates # (Auto) Eos # (Auto) Baso # (Auto) Total Counted Immature Gran % Nucleated RBC % Immature Gran # Segmented Neutrophils Band Neutrophils Lymphocytes Monocytes Nucleated RBCs # Platelet Estimate Immature Plt Fraction Hypochromasia Spherocytes Absolute Retic Percent Retic Retic Hgb Equivalent ABG pH ABG pCO2 ABG pO2 ABG HCO3 ABG Total CO2 ABG O2 Saturation ABG Base Excess Sodium Potassium Chloride Carbon Dioxide Anion Gap BUN Creatinine GFR Calculation BUN/Creatinine Ratio Glucose POC Glucose 138 H Calculated Osmolality Lactic Acid 1.2 Calcium Magnesium Iron TIBC % Saturation Ferritin Vitamin B12 Folate TSH 3rd Generation Urine Color Yellow Urine Appearance Slightly hazy Urine pH 5.0 Ur Specific Eckley 1.013 Urine Protein 100 Urine Glucose (UA) Negative Urine Ketones Negative Urine Blood Negative Urine Nitrate Negative Urine Bilirubin Negative Urine Urobilinogen < 2.0 H Urine Leukocytes Negative Urine RBC Urine WBC 4 Ur Squamous Epith Cells Occasional Urine Bacteria Hyaline Casts 8 Urine Mucus Occasional Ur Culture Indicated? Not indicated 07/28/17 07/28/17 07/28/17 19:19 19:19 19:19 WBC RBC Hgb Hct MCV MCH MCHC RDW Plt Count MPV Neut % (Auto) Lymph % (Auto) Gates % (Auto) Eos % (Auto) Baso % (Auto) Neut # (Auto) Lymph # (Auto) Gates # (Auto) Eos # (Auto) Baso # (Auto) Total Counted Immature Gran % Nucleated RBC % Immature Gran # Segmented Neutrophils Band Neutrophils Lymphocytes Monocytes Nucleated RBCs # Platelet Estimate Immature Plt Fraction Hypochromasia Spherocytes Absolute Retic 0.0 Percent Retic 0.9 Retic Hgb Equivalent 29.5 ABG pH ABG pCO2 ABG pO2 ABG HCO3 ABG Total CO2 ABG O2 Saturation ABG Base Excess Sodium Potassium Chloride Carbon Dioxide Anion Gap BUN Creatinine GFR Calculation BUN/Creatinine Ratio Glucose POC Glucose Calculated Osmolality Lactic Acid Calcium Magnesium 2.5 H Iron 14 L TIBC 250 % Saturation 5.6 L Ferritin 178.0 Vitamin B12 471 Folate TSH 3rd Generation 0.321 L Urine Color Urine Appearance Urine pH Ur Specific Eckley Urine Protein Urine Glucose (UA) Urine Ketones Urine Blood Urine Nitrate Urine Bilirubin Urine Urobilinogen Urine Leukocytes Urine RBC Urine WBC Ur Squamous Epith Cells Urine Bacteria Hyaline Casts Urine Mucus Ur Culture Indicated? 07/28/17 07/29/17 07/29/17 19:19 06:13 06:13 WBC 9.8 RBC 2.71 L Hgb 7.8 L Hct 24.3 L MCV 89.7 MCH 29 MCHC 32.1 RDW 16.0 Plt Count 111 L MPV 11.6 Neut % (Auto) 89.3 H Lymph % (Auto) 4.5 L Gates % (Auto) 5.0 Eos % (Auto) 0.1 Baso % (Auto) 0.1 Neut # (Auto) 8.8 H Lymph # (Auto) 0.4 L Gates # (Auto) 0.5 Eos # (Auto) 0.0 Baso # (Auto) 0.0 Total Counted Immature Gran % 1.0 Nucleated RBC % 0.0 Immature Gran # 0.10 Segmented Neutrophils Band Neutrophils Lymphocytes Monocytes Nucleated RBCs # 0.00 Platelet Estimate Immature Plt Fraction 0.0 Hypochromasia 1+ Spherocytes Few Absolute Retic Percent Retic Retic Hgb Equivalent ABG pH ABG pCO2 ABG pO2 ABG HCO3 ABG Total CO2 ABG O2 Saturation ABG Base Excess Sodium 141 Potassium 3.8 Chloride 111 H Carbon Dioxide 20 L Anion Gap 13.8 BUN 39 H Creatinine 1.80 H GFR Calculation 25 BUN/Creatinine Ratio 21.00 H Glucose 135 H POC Glucose Calculated Osmolality 291.3 Lactic Acid Calcium 7.4 L Magnesium Iron TIBC % Saturation Ferritin Vitamin B12 Folate > 24.0 H TSH 3rd Generation Urine Color Urine Appearance Urine pH Ur Specific Eckley Urine Protein Urine Glucose (UA) Urine Ketones Urine Blood Urine Nitrate Urine Bilirubin Urine Urobilinogen Urine Leukocytes Urine RBC Urine WBC Ur Squamous Epith Cells Urine Bacteria Hyaline Casts Urine Mucus Ur Culture Indicated? 07/29/17 13:10 WBC RBC Hgb Hct MCV MCH MCHC RDW Plt Count MPV Neut % (Auto) Lymph % (Auto) Gates % (Auto) Eos % (Auto) Baso % (Auto) Neut # (Auto) Lymph # (Auto) Gates # (Auto) Eos # (Auto) Baso # (Auto) Total Counted Immature Gran % Nucleated RBC % Immature Gran # Segmented Neutrophils Band Neutrophils Lymphocytes Monocytes Nucleated RBCs # Platelet Estimate Immature Plt Fraction Hypochromasia Spherocytes Absolute Retic Percent Retic Retic Hgb Equivalent ABG pH 7.310 L ABG pCO2 37.7 ABG pO2 199.0 H ABG HCO3 18.9 L ABG Total CO2 17.7 L ABG O2 Saturation 99.2 ABG Base Excess -6.7 L Sodium Potassium Chloride Carbon Dioxide Anion Gap BUN Creatinine GFR Calculation BUN/Creatinine Ratio Glucose POC Glucose Calculated Osmolality Lactic Acid Calcium Magnesium Iron TIBC % Saturation Ferritin Vitamin B12 Folate TSH 3rd Generation Urine Color Urine Appearance Urine pH Ur Specific Eckley Urine Protein Urine Glucose (UA) Urine Ketones Urine Blood Urine Nitrate Urine Bilirubin Urine Urobilinogen Urine Leukocytes Urine RBC Urine WBC Ur Squamous Epith Cells Urine Bacteria Hyaline Casts Urine Mucus Ur Culture Indicated?
[2017-07-29 13:57] LABS: Troponin I Only < 0.015 NG/ML (0.00-0.045)
--- NOTE | 2017-07-29 14:43 | Hospitalist Progress Note ---
Assessment and Plan (1) Back pain Status: Acute Assessment and plan: Continue current management with modest analgesia: This is chronic back pain that has been treated outpatient by pain management teams. Current Visit: Yes Qualifiers: Back pain location: low back pain Chronicity: chronic Back pain laterality: unspecified Sciatica laterality: sciatica laterality unspecified (2) Chronic anemia Status: Acute Assessment and plan: Most likely related to her chronic kidney disease stage III Current Visit: Yes (3) Acute pulmonary edema Status: Acute Assessment and plan: This point is not done as to the cause. Could be fluid overload from fluid resuscitation and she has received since admission. Fluids have been stopped. Patient was given some Lasix to see the outcome of that. Cardiology is also been consulted to evaluate for possibility of acute coronary insufficiency. I will follow their recommendations Current Visit: Yes (4) Leukocytosis Status: Acute Assessment and plan: Unknown cause of this point could be demargination of stress. Current Visit: Yes Hospitalist: Subjective Interval history: Patient has been seen interviewed and examined and chart has been reviewed. When I worked on the phone shows a telephone call with somebody so a little for the short call before I could examine her. We came back she was comfortable and able to talk to me. She has a history of low low back pain chronic history of back injections she has history of chronic chronic kidney disease stage III but presented to the hospital this time with acute kidney injury her creatinine is gone up over 1.8. She has history of chronic anemia. Had finished my examination and goes downstairs when the called me that patient had developed some shortness of breath and found to pulmonary edema by the colleagues who examining her after I finished examining her. Patient was consulted to pulmonology who was consulted cardiology. There is suspicion that maybe her pulmonary edema is related to acute coronary ischemia and formal for acute coronary insufficiency. Recommendations from both Dr. Carmichael and Dr. Albert appreciated. I plan to reassess again later this afternoon there is any change. Patient has been diuresed. Exam - Constitutional Vitals: Period Temp Pulse Resp BP Sys/Woodall Pulse Ox Last 24 Hr 97.3 F-99.9 F 72-90 18-28 119-176/49-95 87-99 General appearance: normal weight - Head Head exam: Present: normocephalic, atraumatic - Eye Eye exam: Present: EOMI Pupils: Present: ARGENIS - ENT ENT exam: Present: normal exam - Neck Neck exam: Present: normal inspection - Respiratory Respiratory exam: Present: clear to auscultation bilaterally (Note: The coronaries this is the patient today that did notice that the patient did have rales), other (Mild wheeze) - Cardiovascular Cardiovascular exam: Present: regular rate and rhythm - GI/Abdominal GI/Abdominal exam: Present: normal bowel sounds, soft - Extremities Exam Extremities exam: Present: other (Generalized) - Neurological Exam Neurological exam: Present: alert, oriented X3, CN II-XII intact - Psychiatric Psychiatric exam: Present: normal affect, normal mood - Skin Skin exam: Present: normal color, warm, dry Results - Labs CBC & BMP: 07/29/17 06:13 07/29/17 06:13 Lab Results: I have reviewed the past 24 hour labs
[2017-07-29] MEDS: FUROSEMIDE 40 MG/4 ML VIAL IV SCH (16:18)
[2017-07-29] MEDS: ACETAMINOPHEN 325 MG TABLET PO PRN (16:53)
[2017-07-29] MEDS ORDERED: LEVOFLOXACIN INJ 500 MG in PREMIX 1 EACH IV ONE (17:30)
[2017-07-29] MEDS: NITROGLYCERIN 2% OINT 1 INCH/GM PACK TOP SCH (18:11)
[2017-07-29] MEDS: AZTREONAM 500 MG in SODIUM CHLORIDE 0.9% 100 ML IV SCH (20:17)
[2017-07-30] MEDS: NITROGLYCERIN 2% OINT 1 INCH/GM PACK TOP SCH ×5 (00:08→23:20)
[2017-07-30] MEDS: ALBUTEROL/IPRATROPIUM 3 ML NEB RESP TX SCH ×5 (00:32→23:54)
[2017-07-30] MEDS: ACETAMINOPHEN 325 MG TABLET PO PRN ×2 (04:28→22:26)
[2017-07-30] MEDS: LEVOTHYROXINE 75 MCG TABLET PO SCH ×2 (05:40→06:04)
[2017-07-30] MEDS: AZTREONAM 500 MG in SODIUM CHLORIDE 0.9% 100 ML IV SCH ×2 (05:40→21:17)
[2017-07-30 07:01] LABS: Basophils % 0.1 % (0.0-0.8); Eosinophils # 0.2 10*3/uL (0.0-0.87); Eosinophils % 1.9 % (0.00-10.9); Hematocrit 25.4 VOL% (35.7-47.0); Hemoglobin 8.3 GM/DL (12.0-16.0); Immature Granulocytes % 0.5 %; Immature Granulocytes Absolute 0.04 #; Lymphocytes # 0.4 10*3/uL (1.4-4.0); Lymphocytes % 4.9 % (21.3-54.2); Mean Corpuscular HGB Conc 32.7 GM/DL (32-36); Mean Corpuscular Hemoglobin 29 PG (27-34); Mean Corpuscular Volume 88.5 FL (87-102); Mean Platelet Volume 11.7 FL (9.6-12.0); Monocytes # 0.5 10*3/uL (0.11-0.8); Monocytes % 5.7 % (1.7-12.7); Neutrophils # 6.8 10*3/uL (1.4-7.4); Neutrophils % 86.9 % (38.7-73.9); Platelet Count 122 T/CUMM (130-400); Red Blood Count 2.87 MC/CUMM (3.8-5.5); Red Cell Distribution Width 15.6 % (9.3-17.3); White Blood Count 7.8 T/CUMM (4-12)
--- NOTE | 2017-07-30 07:22 | EKG Report ---
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
[2017-07-30 07:38] LABS: Blood Urea Nitrogen 30 MG/DL (7-18); Calcium 7.3 MG/DL (8.5-10.1); Glucose 119 MG/DL (74-106); Magnesium 2.1 MG/DL (1.8-2.4); Osmolality,Calculated 289.1 MOS/KG (273-304); Potassium 3.4 MMOL/L (3.5-5.1); Sodium 142 MMOL/L (136-145); Troponin I Only < 0.015 NG/ML (0.00-0.045)
[2017-07-30 07:43] LABS: Hypochromasia 2+; Microcytosis 2+; Platelet Estimate Decreased
--- NOTE | 2017-07-30 08:51 | ECHO Report ---
Dana Tran Exam Date: 07/29/2017 13:41 Referring Physician: Technologist: judi Macias ARDMS, RVT Age: 87 Ht (in): 64 Wt (lb): 153 Gender: F Exam Location: [facility] Echo Indications: ARF, CHF symptoms, Thrombocytopenia, Anemia, Dehydration BP: 140 / 66 HR: 86 Rhythm: Sinus Technical Quality: Fair IMPRESSIONS Normal left ventricular cavity size. Mild left ventricular hypertrophy. Left ventricular ejection fraction is estimated at 65 %. The right ventricle is normal in size and function. The right atrium is normal in size. The left atrium is mildly enlarged. Mildly thickened mitral valve. No mitral valve stenosis. Mild-moderate mitral valve regurgitation. The aortic valve is trileaflet and has normal motion. No aortic valve stenosis. [id number] aortic valve regurgitation. Morphologically normal tricuspid valve. Mild tricuspid valve regurgitation. Tricuspid regurgitation velocities suggest a PAP of 61 mmHg. Pulmonic valve not well visualized. Trace pulmonary valve regurgitation. Normal pericardium without effusion. Normal ascending aorta dimension. MEASUREMENTS (Male / Female) Normal Values 2D ECHO LV Diastolic Diameter PLAX 4.2 cm 4.2 - 5.9 / 3.9 - 5.3 cm LV Systolic Diameter PLAX 2.5 cm LV Fractional Shortening PLAX 40.6 % IVS Diastolic Thickness 1.3 cm 0.6 - 1.0 / 0.6 - 0.9 cm LVPW Diastolic Thickness 1.3 cm 0.6 - 1.0 / 0.6 - 0.9 cm RV Internal Dim ED PLAX 2.5 cm Aortic Root Diameter 3.0 cm LA Systolic Diameter LX 4.4 cm 3.0 - 4.0 / 2.7 - 3.8 cm DOPPLER TR Peak Velocity 356.0 cm/s TR Peak Gradient 50.7 mmHg FINDINGS Left Ventricle Normal left ventricular cavity size. Mild left ventricular hypertrophy. Left ventricular ejection fraction is estimated at 65 %. Right Ventricle The right ventricle is normal in size and function. Right Atrium The right atrium is normal in size. Left Atrium The left atrium is mildly enlarged. Mitral Valve Mildly thickened mitral valve. No mitral valve stenosis. Mild-moderate mitral valve regurgitation. Aortic Valve The aortic valve is trileaflet and has normal motion. No aortic valve stenosis. [id number] aortic valve regurgitation. Tricuspid Valve Morphologically normal tricuspid valve. Mild tricuspid valve regurgitation. Tricuspid regurgitation velocities suggest a PAP of 61 mmHg. Pulmonic Valve Pulmonic valve not well visualized. Trace pulmonary valve regurgitation. Pericardium Normal pericardium without effusion. Aorta Normal ascending aorta dimension. Morris Albert MD (Electronically Signed) Final Date: 30 July 2017 08:49
[2017-07-30] MEDS ORDERED: ENOXAPARIN 30 MG/0.3 ML SYRINGE SUBCUT SCH (09:00)
[2017-07-30] MEDS: PANTOPRAZOLE 40 MG TABLET PO SCH ×2 (09:01→20:14)
[2017-07-30] MEDS: FUROSEMIDE 40 MG/4 ML VIAL IV SCH ×2 (09:01→15:22)
[2017-07-30] MEDS: PREGABALIN 75 MG CAPSULE PO SCH (09:01)
[2017-07-30] MEDS: BISACODYL 5 MG TABLET PO SCH (09:08)
[2017-07-30] MEDS: ENOXAPARIN 80 MG/0.8 ML SYRINGE SUBCUT SCH ×2 (09:11→20:14)
[2017-07-30] MEDS ORDERED: MAGNESIUM SULF RIDER 2 GM in PREMIX 1 EACH IV PRN (09:45)
[2017-07-30] MEDS ORDERED: MAGNESIUM SULF RIDER 4 GM in PREMIX 1 EACH IV PRN (09:45)
--- NOTE | 2017-07-30 09:45 | Cardiology Progress Note ---
Assessment and Plan (1) Congestive heart failure Status: Acute Assessment and plan: I will push diuresis and offloading as tolerated. We will review echo when available Current Visit: Yes (2) Dyspnea Status: Acute Current Visit: Yes (3) Renal insufficiency Status: Acute Current Visit: Yes (4) Atrial fibrillation Status: Acute Assessment and plan: We will begin rate control medications. Correcting electrolytes. Current Visit: Yes Cardiology - PN: Subj Interval history: Ms. 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 She has a history of hypertension and has been on multiple antihypertensive medicines. She has had a history of recurring congestive heart failure. She presents with increasing dyspnea which he says started about a 4 days ago. She has had wheezing and cough but no fever or chills. Her chest x-ray is consistent with congestive heart failure and she has been started on some diuretic. She denies angina she has had no history of syncope or palpitations. I am asked to see her to evaluate in follow-up for heart failure. An echocardiogram is pending. July 30, 2017: Patient has gone into atrial fibrillation with a heart rate in the 110 range. Her LV function appears to be normal. I am going to add Cardizem 60 mg p.o. 3 times daily. She did have a mild rash with amlodipine but I do not think there is any cross reactivity. We will continue close observation continue diuresis. She is much more comfortable today. Her potassium was 3.4 and we will replace that. Exam (Progress Note) - Constitutional Vitals: Period Temp Pulse Resp BP Sys/Woodall Pulse Ox Last 24 Hr 98.2 F-101.2 F 72-112 16-24 121-176/53-75 88-98 Exam: General:no acute distress. alert and oriented, mood and affect are normal HEENT: no new lesions, sclerae are clear, mouth and pharynx benign Neck: supple, trachea midline, no JVD noted Lungs: no rales ronchi or wheeze is noted. pt comfortable without accesory muscle use to assist with breathing CV: Irregularly irregular rate and rhythm no murmur rub or gallop is noted. Abd: soft and nontender, BSNA, no masses. Ext: no cyanosis, clubbing or edema Neuro: grossly intact without focal neurologic deficit. Result/EKG - Labs CBC & BMP: 07/30/17 05:52 07/30/17 05:52 Labs: Laboratory Results - last 24 hr 07/29/17 07/29/17 07/29/17 13:10 13:22 13:22 WBC RBC Hgb Hct MCV MCH MCHC RDW Plt Count MPV Neut % (Auto) Lymph % (Auto) [place] % (Auto) Eos % (Auto) Baso % (Auto) Neut # (Auto) Lymph # (Auto) [place] # (Auto) Eos # (Auto) Baso # (Auto) Immature Gran % Nucleated RBC % Immature Gran # Nucleated RBCs # Platelet Estimate Immature Plt Fraction Hypochromasia Microcytosis ABG pH 7.310 L ABG pCO2 37.7 ABG pO2 199.0 H ABG HCO3 18.9 L ABG Total CO2 17.7 L ABG O2 Saturation 99.2 ABG Base Excess -6.7 L Sodium Potassium Chloride Carbon Dioxide Anion Gap BUN Creatinine GFR Calculation BUN/Creatinine Ratio Glucose Calculated Osmolality Calcium Magnesium Total Creatine Kinase 221 H CK-MB (CK-2) 3.2 Troponin I < 0.015 B-Natriuretic Peptide 739 H 07/30/17 07/30/17 05:52 05:52 WBC 7.8 RBC 2.87 L Hgb 8.3 L Hct 25.4 L MCV 88.5 MCH 29 MCHC 32.7 RDW 15.6 Plt Count 122 L MPV 11.7 Neut % (Auto) 86.9 H Lymph % (Auto) 4.9 L [place] % (Auto) 5.7 Eos % (Auto) 1.9 Baso % (Auto) 0.1 Neut # (Auto) 6.8 Lymph # (Auto) 0.4 L [place] # (Auto) 0.5 Eos # (Auto) 0.2 Baso # (Auto) 0.0 Immature Gran % 0.5 Nucleated RBC % 0.0 Immature Gran # 0.04 Nucleated RBCs # 0.00 Platelet Estimate Decreased Immature Plt Fraction 0.0 Hypochromasia 2+ Microcytosis 2+ ABG pH ABG pCO2 ABG pO2 ABG HCO3 ABG Total CO2 ABG O2 Saturation ABG Base Excess Sodium 142 Potassium 3.4 L Chloride 109 H Carbon Dioxide 24 Anion Gap 12.4 BUN 30 H Creatinine 1.50 H GFR Calculation 31 BUN/Creatinine Ratio 20.00 Glucose 119 H Calculated Osmolality 289.1 Calcium 7.3 L Magnesium 2.1 Total Creatine Kinase 117 D CK-MB (CK-2) 1.5 Troponin I < 0.015 B-Natriuretic Peptide
--- NOTE | 2017-07-30 10:27 | XRay Report ---
Single view the chest. Indication: Congestive heart failure. Comparison: Yesterday's exam. The heart is enlarged. There is uncoiling of the thoracic aorta, often seen with chronic hypertension. There is atelectasis and pleural effusion at the left lung base. The pulmonary vasculature is prominent. The interstitial edema shows improvement. Surgical clips at the left thoracic inlet. Stable osseous structures. Impression: Some improvement in the interstitial edema. Left base atelectasis and pleural effusion, cardiomegaly and venous congestion persist. PROCEDURE INTERPRETED AT [facility] DEPARTMENT OF RADIOLOGY Final Report Signed by: Dr. Romy Perez
--- NOTE | 2017-07-30 11:36 | Pulmonology Progress Note ---
Pulmonary - PN: Subj Interval history: I was asked to see patient yesterday because of acute dyspnea. It was apparent that she had congestive heart failure and was ahead on fluids. She has a normal LV ejection fraction but does have some LVH and has both MR and AR. She has diuresed over 4 L and she is feeling better. Still has a pretty high oxygen requirement. Hopefully we can wean her down the nasal oxygen today. Exam (Progress Note) - Constitutional Vitals: Period Temp Pulse Resp BP Sys/Woodall Pulse Ox Last 24 Hr 98 F-101.2 F 72-112 16-24 121-176/53-75 93-99 Exam: Patient is alert oriented wearing a nonrebreathing mask with both flaps often has an O2 sat in the mid 90s. Pupils react to light. Neck is supple. Chest reveals a few basilar crackles but she sounds much better. Heart irregular with grade 1/6 systolic murmur at left sternal border. Abdomen soft nontender no masses. Bowel sounds present. Extremities no clubbing cyanosis or edema. Calves nontender. Results - Labs CBC & BMP: 07/30/17 05:52 07/30/17 05:52 Lab Results: I have reviewed the past 24 hour labs Assessment and Plan (1) Congestive heart failure Status: Acute Assessment and plan: Clinically she is in heart failure with bibasilar rales wheezing and radiographically. Not sure why. Will check cardiac isoenzymes, BNP and echo. Ask cardiology to see her. She has no history of chronic lung disease or asthma. 07/30/2017 this is due to diastolic dysfunction and valvular disease. See echo report. She is better with diuresis. Continue same Current Visit: Yes (2) Anemia Status: Acute Assessment and plan: A chronic anemia may be aggravating her congestive failure. Current Visit: Yes (3) Renal insufficiency Status: Acute Assessment and plan: Her creatinine is only slightly higher than it was 2 years ago at 1.8 compared to 1.4. 07/30/2017 creatinine is actually dropped to 1.5 despite the vigorous diuresis. This is a good sign Current Visit: Yes
--- NOTE | 2017-07-30 12:46 | Hospitalist Progress Note ---
Assessment and Plan (1) Back pain Status: Acute Assessment and plan: Continue current management with modest analgesia: This is chronic back pain that has been treated outpatient by pain management teams. Current Visit: Yes Qualifiers: Back pain location: low back pain Chronicity: chronic Back pain laterality: unspecified Sciatica laterality: sciatica laterality unspecified (2) Chronic anemia Status: Acute Assessment and plan: Most likely related to her chronic kidney disease stage III Current Visit: Yes (3) Acute pulmonary edema Status: Acute Assessment and plan: Patient has responded very well to Lasix. We will continue to follow and monitor fluid status and electrolytes. Current Visit: Yes (4) Leukocytosis Status: Acute Assessment and plan: This is been accompanied by the development of fevers and patient was started on antibiotics yesterday she has multiple allergies medications including anaphylaxis to beta-lactam; so she was started on aztreonam and levofloxacin yesterday Current Visit: Yes Hospitalist: Subjective Interval history: Patient has been seen interviewed and examined chart has been reviewed. She states that she is breathing a lot better today. She has had aggressive diuresis over the past 18 hours. Patient developed acute pulmonary edema yesterday echocardiogram was ordered is pending report. Events of today that she developed atrial fibrillation. She was in sinus with APCs before. Has been started on full dose unfractionated heparin has been put on the monitor. Cardiology is already on the case. Because with the cardiology diltiazem will be started because the left ventricle is preserved. Note no anything about the left atrial size at this point. Exam - Constitutional Vitals: Period Temp Pulse Resp BP Sys/Woodall Pulse Ox Last 24 Hr 98 F-101.2 F 73-112 16-22 121-154/53-65 93-99 General appearance: normal weight - Head Head exam: Present: normocephalic, atraumatic - Eye Eye exam: Present: EOMI Pupils: Present: ARGENIS - ENT ENT exam: Present: normal exam - Respiratory Respiratory exam: Present: clear to auscultation bilaterally (Mild basilar rales. dilute urine in the Vigil following Lasix dose) Results - Labs CBC & BMP: 07/30/17 05:52 07/30/17 05:52 Lab Results: I have reviewed the past 24 hour labs (Noted hypokalemia was supplemented per protocol will need to check patient's magnesium on the serum sample if is less than 1.8 that was will be supplemented per protocol)
--- NOTE | 2017-07-30 13:33 | Event Note ---
Chief complaint anemia Breathing some better today after some diuresis. She still on facemask O2 but overall looks better. Will defer workup of her anemia pending improvement in her respiratory status. Review of systems no chest pain reported improvement in her shortness of breath no abdominal pain On exam she is afebrile vital signs are stable sclerae anicteric lids conjunctiva was unremarkable oropharynx is benign neck supple no JVD no thyromegaly lungs clear to auscultation no respiratory distress heart regular rate and rhythm no murmur abdomen soft nondistended nontender no mass no paraspinal megaly bowel sounds normoactive. Extremities reveal no clubbing cyanosis edema all 4 extremities. Recommendations: Reconsider GI workup once her pulmonary status has improved.
[2017-07-30] MEDS: DILTIAZEM 60 MG TABLET PO SCH ×2 (15:17→20:14)
[2017-07-30] MEDS: LEVOFLOXACIN INJ 250 MG in PREMIX 1 EACH IV SCH (16:41)
[2017-07-30] MEDS: POTASSIUM CHLORIDE RIDER 10 MEQ in PREMIX 1 EACH IV PRN ×4 (17:33→22:22)
[2017-07-30] MEDS ORDERED: PHENOL 1.4% THROAT SPRAY 177 ML BOTTLE PO PRN (23:56)
[2017-07-31] MEDS: POTASSIUM CHLORIDE RIDER 10 MEQ in PREMIX 1 EACH IV PRN ×2 (03:55→05:12)
[2017-07-31] MEDS: NITROGLYCERIN 2% OINT 1 INCH/GM PACK TOP SCH ×3 (05:14→18:30)
[2017-07-31] MEDS: LEVOTHYROXINE 75 MCG TABLET PO SCH (06:16)
[2017-07-31] MEDS: ALBUTEROL/IPRATROPIUM 3 ML NEB RESP TX SCH ×3 (07:26→19:10)
--- NOTE | 2017-07-31 08:25 | Pulmonology Progress Note ---
Pulmonary - PN: Subj Interval history: I was asked to see patient yesterday because of acute dyspnea. It was apparent that she had congestive heart failure and was ahead on fluids. She has a normal LV ejection fraction but does have some LVH and has both MR and AR. She has diuresed over 4 L and she is feeling better. Still has a pretty high oxygen requirement. Hopefully we can wean her down the nasal oxygen today. 07/31/2017 patient still having some dyspnea. She started to cough up some phlegm. She has been placed on antibiotics and bronchodilators. Weight has not dropped although she has had a good response to diuretics. Will add Zaroxolyn. Chest x-ray pending. Continue empiric antibiotics and bronchodilators. Exam (Progress Note) - Constitutional Vitals: Period Temp Pulse Resp BP Sys/Woodall Pulse Ox Last 24 Hr 97.4 F-101.4 F 77-120 16-20 108-132/44-71 92-98 Exam: Patient is alert oriented wearing 4 L nasal oxygen with O2 sat 91%. Pupils react to light. Neck is supple. Chest reveals a few basilar crackles and a few rhonchi. Heart irregular with grade 1/6 systolic murmur at left sternal border. Abdomen soft nontender no masses. Bowel sounds present. Extremities no clubbing cyanosis or edema. Calves nontender. Results - Labs CBC & BMP: 07/30/17 05:52 07/31/17 02:45 Lab Results: I have reviewed the past 24 hour labs - Diagnostic Findings Procedure: Chest x-ray: pending Assessment and Plan (1) Congestive heart failure Status: Acute Assessment and plan: Clinically she is in heart failure with bibasilar rales wheezing and radiographically. Not sure why. Will check cardiac isoenzymes, BNP and echo. Ask cardiology to see her. She has no history of chronic lung disease or asthma. 07/30/2017 this is due to diastolic dysfunction and valvular disease. See echo report. She is better with diuresis. Continue same 07/31/2017 appears to need a lot of further diuresis. Current Visit: Yes (2) Anemia Status: Acute Assessment and plan: A chronic anemia may be aggravating her congestive failure. 07/31/2017 hematocrit was 25 yesterday. Current Visit: Yes (3) Renal insufficiency Status: Acute Assessment and plan: Her creatinine is only slightly higher than it was 2 years ago at 1.8 compared to 1.4. 07/30/2017 creatinine is actually dropped to 1.5 despite the vigorous diuresis. This is a good sign 07/31/2017 has had good urine output. Current Visit: Yes
--- NOTE | 2017-07-31 08:53 | Gastrointestinal Progress Note ---
Assessment and Plan (1) Iron deficiency anemia Status: Acute Assessment and plan: 07/31-H&H is holding at this time with no overt bleeding. No complaints of abdominal pain. Poor appetite reported. Continue to monitor at present time and will reevaluate GI workup as she continues to improve from a respiratory standpoint. plan an addendum to followed by Dr. Patiño. Current Visit: Yes Gastroenterology - PN: Subj Interval history: CC: Anemia Patient is seen awake alert lying in bed. States she did not sleep well last night. Patient states she generally just does not feel well however she has no specific complaints at this time. She does report a poor appetite with minimal intake. She denies shortness of breath at this time and is resting comfortably. H&H is not checked today however is up slightly on yesterday at . Abdomen soft, nontender. There are no reports of overt bleeding at this time. ROS: Denies shortness of breath or chest pain Exam (Progress Note) - Constitutional Vitals: Period Temp Pulse Resp BP Sys/Woodall Pulse Ox Last 24 Hr 97.4 F-101.4 F 77-120 16-20 108-132/44-71 92-98 General appearance: normal weight, no acute distress - Head Head exam: Present: normal inspection, normocephalic - Eye Eye exam: Present: other (Lids and conjunctive are unremarkable). Absent: scleral icterus - ENT ENT exam: Present: normal exam, normal oropharynx - Neck Neck exam: Present: normal inspection - Respiratory Respiratory exam: Present: clear to auscultation bilaterally. Absent: rales, rhonchi, wheezes - Cardiovascular Cardiovascular exam: Present: regular rate and rhythm. Absent: diastolic murmur , JVD, systolic murmur - GI/Abdominal GI/Abdominal exam: Present: normal bowel sounds, soft. Absent: ascites, distended, mass, organomegaly, tenderness - Extremities Exam Extremities exam: Present: normal inspection, full ROM - Back Exam Back exam: Present: normal inspection - Neurological Exam Neurological exam: Present: alert, oriented X3 - Psychiatric Psychiatric exam: Present: normal affect, normal mood - Skin Skin exam: Present: normal color, warm, dry Results - Labs CBC & BMP: 07/30/17 05:52 07/31/17 02:45 Lab Results: I have reviewed the past 24 hour labs
[2017-07-31] MEDS: FUROSEMIDE 40 MG/4 ML VIAL IV SCH ×2 (09:23→16:39)
[2017-07-31] MEDS: DILTIAZEM 60 MG TABLET PO SCH ×3 (09:24→21:11)
[2017-07-31] MEDS: ENOXAPARIN 80 MG/0.8 ML SYRINGE SUBCUT SCH ×2 (09:24→21:12)
[2017-07-31] MEDS: metOLazone 2.5 MG TABLET PO SCH (09:24)
[2017-07-31] MEDS: BISACODYL 5 MG TABLET PO SCH (09:24)
[2017-07-31] MEDS: PANTOPRAZOLE 40 MG TABLET PO SCH ×2 (09:24→21:13)
[2017-07-31] MEDS: PREGABALIN 75 MG CAPSULE PO SCH (09:24)
[2017-07-31] MEDS: AZTREONAM 500 MG in SODIUM CHLORIDE 0.9% 100 ML IV SCH ×2 (10:30→23:41)
--- NOTE | 2017-07-31 13:08 | Cardiology Progress Note ---
Assessment and Plan - Time spent with patient Time spent with patient: Less than 30 minutes (1) Heart failure with preserved ejection fraction, borderline, class III Status: Chronic Current Visit: Yes (2) Pulmonary hypertension Status: Chronic Current Visit: Yes (3) Labile hypertension Status: Chronic Current Visit: Yes (4) Atrial fibrillation Status: Chronic Current Visit: Yes Cardiology - PN: Subj Interval history: I reviewed Ms. Tran discharging her transthoracic echo. She is an 87-year-old female with severe probably labile blood pressure who has preserved ejection fraction signs and symptoms of heart failure with right heart failure and right ventricular systolic pressure estimated be 61 mmHg plus the right atrial pressure. Her sister is at the bedside and I discussed with the patient and her sister and examined the patient. Her sister states that she is the one that drove her to the hospital she is dramatically better than she was on Monday. Patient is lying in the bed with head up about 10 when I saw her. She was eating lunch. She remains in atrial fibrillation her rate is about 100. Dr. Albert started immediate release diltiazem yesterday will I will convert this to extended release. Exam (Progress Note) - Constitutional Vitals: Period Temp Pulse Resp BP Sys/Woodall Pulse Ox Last 24 Hr 97.4 F-101.4 F 77-120 16-20 108-129/44-71 92-98 General appearance: normal weight - Head Head exam: Present: normal inspection - Eye Eye exam: Present: EOMI - Respiratory Respiratory exam: Present: clear to auscultation bilaterally - Cardiovascular Cardiovascular exam: Present: irregular rhythm, other (rate is about 100 when I examined.) - GI/Abdominal GI/Abdominal exam: Present: normal bowel sounds - Rectal Rectal Exam: black stool - Extremities Exam Extremities exam: Present: normal inspection - Neurological Exam Neurological exam: Present: alert, oriented X3 - Psychiatric Psychiatric exam: Present: normal affect, depressed - Skin Skin exam: Present: normal color, warm, dry Result/EKG - Labs CBC & BMP: 07/30/17 05:52 07/31/17 02:45 Labs: Laboratory Results - last 24 hr 07/31/17 02:45 Potassium 3.8
--- NOTE | 2017-07-31 13:32 | XRay Report ---
XR chest 1V portable Indication: CHF Comparison: Chest x-ray July 30, 2017 Technique: Single frontal view of the chest. Findings: Continued mild cardiomegaly. Continued nonspecific bilateral pulmonary interstitial prominence. Continued small left pleural fluid. Visualized osseous and surrounding soft tissue structures appear grossly unchanged. IMPRESSION: No significant interval change. PROCEDURE INTERPRETED AT [facility] DEPARTMENT OF RADIOLOGY Final Report Signed by: Dr Tony Cardoza
--- NOTE | 2017-07-31 14:16 | Hospitalist Progress Note ---
Assessment and Plan (1) Acute renal failure Status: Acute Assessment and plan: Renal function improving; BUN/Creatinine 30/1.50; slight improvement from admission at 39/1.80. We will recheck in a.m. Current Visit: Yes (2) Chronic anemia Status: Acute Assessment and plan: Hemoglobin/hematocrit noted at 8.3/25.4. Noted improvement from 7.8 and 24.3 at the time of admission. Will recheck CBC in AM. Current Visit: Yes (3) Congestive heart failure Status: Acute Assessment and plan: Chest x-ray mildly improved. A mild degree of cardiomegaly remains. In addition, there is a component of bilateral pulmonary interstitial prominence and small left pleural effusion noted. We will gently diurese and recheck chest x-ray in a.m. Current Visit: Yes Exam - Constitutional Vitals: Period Temp Pulse Resp BP Sys/Woodall Pulse Ox Last 24 Hr 97.4 F-101.4 F 77-120 16-20 97-129/44-71 92-98 General appearance: normal weight, no acute distress - Head Head exam: Present: normal inspection, normocephalic, atraumatic - Eye Eye exam: Present: EOMI. Absent: conjunctival injection Pupils: Present: ARGENIS, normal accommodation - ENT ENT exam: Present: normal exam, normal external ear exam, normal oropharynx - Neck Neck exam: Present: normal inspection. Absent: lymphadenopathy, meningismus, tenderness, thyromegaly - Respiratory Respiratory exam: Absent: rales, rhonchi, stridor, wheezes - Cardiovascular Cardiovascular exam: Present: irregular rhythm (Atrial fibrillation). Absent: carotid bruit, diastolic murmur, gallop, systolic murmur - GI/Abdominal GI/Abdominal exam: Present: normal bowel sounds, soft. Absent: tenderness - Extremities Exam Extremities exam: Present: normal inspection, normal capillary refill, full ROM. Absent: edema - Back Exam Back exam: Present: normal inspection - Neurological Exam Neurological exam: Present: alert, oriented X3, CN II-XII intact - Psychiatric Psychiatric exam: Present: normal affect, normal mood, homicidal ideation - Skin Skin exam: Present: normal color, warm, dry Results - Labs CBC & BMP: 07/30/17 05:52 07/31/17 02:45 Lab Results: I have reviewed the past 24 hour labs
[2017-07-31] MEDS: LEVOFLOXACIN INJ 250 MG in PREMIX 1 EACH IV SCH (16:39)
[2017-08-01] MEDS: ALBUTEROL/IPRATROPIUM 3 ML NEB RESP TX SCH ×4 (02:24→19:02)
[2017-08-01] MEDS: NITROGLYCERIN 2% OINT 1 INCH/GM PACK TOP SCH ×2 (02:47→06:07)
[2017-08-01] MEDS: LEVOTHYROXINE 75 MCG TABLET PO SCH (06:05)
[2017-08-01 07:36] LABS: Basophils % 0.1 % (0.0-0.8); Eosinophils # 0.3 10*3/uL (0.0-0.87); Eosinophils % 3.7 % (0.00-10.9); Hematocrit 24.4 VOL% (35.7-47.0); Hemoglobin 8.1 GM/DL (12.0-16.0); Immature Granulocytes % 0.5 %; Immature Granulocytes Absolute 0.04 #; Lymphocytes # 0.9 10*3/uL (1.4-4.0); Lymphocytes % 11.6 % (21.3-54.2); Mean Corpuscular HGB Conc 33.2 GM/DL (32-36); Mean Corpuscular Hemoglobin 29 PG (27-34); Mean Corpuscular Volume 86.8 FL (87-102); Mean Platelet Volume 11.1 FL (9.6-12.0); Monocytes # 0.6 10*3/uL (0.11-0.8); Monocytes % 7.6 % (1.7-12.7); Neutrophils # 5.7 10*3/uL (1.4-7.4); Neutrophils % 76.5 % (38.7-73.9); Platelet Count 152 T/CUMM (130-400); Red Blood Count 2.81 MC/CUMM (3.8-5.5); Red Cell Distribution Width 15.3 % (9.3-17.3); White Blood Count 7.5 T/CUMM (4-12)
--- NOTE | 2017-08-01 08:07 | Physician Query Form ---
CLICK EDIT DOCUMENT TO SELECT QUERY ANSWER --> OK --> SIGN Sofia Silva RN, CCDS Certified Clinical Ethologist W) [phone] (f) [phone] [email or web address] PROVIDERS: Make your selection(s) from the choices in EACH section by typing an "x" and enter comments in the comment section. Please use your independent medical judgment in providing your response. This request does not imply that any particular answer is desired or expected. CLINICAL INDICATORS: (Providers should not edit this section) The medical record indicates that the patient was admitted with CHF, "O2 sat 88 % on 2 L", on the 15th: Respiratory Rate would ^ to 29, on the 16th: "respiratory distress", and the patient would later be placed on a Non- Rebreather Mask with 15 Liters. If possible, please further clarify the type and acuity of respiratory diagnosis : ACUITY: ( ) Acute ( ) Chronic (x ) Acute on Chronic TYPE: (x ) Respiratory failure with hypoxia ( ) Respiratory failure with hypercapnia ( ) Respiratory Arrest ( ) Postprocedural/postoperative respiratory failure ( ) Respiratory Insufficiency ( ) ARDS (Adult/Acute Respiratory Distress Syndrome) ( ) Other, please specify: ( ) Clinically unable to determine Recognized criteria for respiratory failure PH <7.35 or >7.45 PO2 <60 PCO2 >50 RR >24 O2 Sat <90% on RA or <95% on O2 Use of accessory muscles Unable to speak in full sentences Intubation is not required COMMENTS: PLEASE ALSO DOCUMENT RESPONSE IN PROGRESS NOTES AND/OR DISCHARGE SUMMARY Use of terms such as suspected, likely, or probable (associated with a specific diagnosis that is being evaluated, monitored, or treated as if it exists) are acceptable and can be restated in the discharge summary if not ruled out. MTDD
[2017-08-01 08:18] LABS: Calcium 7.7 MG/DL (8.5-10.1); Osmolality,Calculated 294.4 MOS/KG (273-304); Potassium 3.7 MMOL/L (3.5-5.1)
--- NOTE | 2017-08-01 08:20 | Hospitalist Progress Note ---
<Evelyne Jacobs - Last Filed: 08/01/17 08:18> Assessment and Plan (1) Acute renal failure Status: Acute Assessment and plan: Renal function improving; BUN/Creatinine 30/1.50; slight improvement from admission at 39/1.80. We will recheck in a.m. 08/01-noted decrease in renal function; BUN and creatinine was grossly increased to 5.4/2.00. This may be secondary to overdiuresis. We will hold Lasix for now and attempt to gently rehydrate. We will recheck labs in a.m. Current Visit: Yes (2) Chronic anemia Status: Acute Assessment and plan: Hemoglobin/hematocrit noted at 8.3/25.4. Noted improvement from 7.8 and 24.3 at the time of admission. Will recheck CBC in AM. 08/01-hemoglobin hematocrit remained stable at 8.1/24.4. We will recheck CBC in a.m. Current Visit: Yes (3) Congestive heart failure Status: Acute Assessment and plan: Chest x-ray mildly improved. A mild degree of cardiomegaly remains. In addition, there is a component of bilateral pulmonary interstitial prominence and small left pleural effusion noted. We will gently diurese and recheck chest x-ray in a.m. 08/01-noted increase in BUN and creatinine; BUN and creatinine noted at 54/2.00. We will hold Lasix today and gently rehydrate. We will monitor closely for signs of volume overload and recheck chest x-ray in a.m. Current Visit: Yes Hospitalist: Subjective Interval history: Patient seen and examined; chart reviewed. No significant overnight events reported per staff. Case management has been consulted for discharge planning for placement at the time of discharge. Exam - Constitutional Vitals: Period Temp Pulse Resp BP Sys/Woodall Pulse Ox Last 24 Hr 96.8 F-98.5 F 61-99 16-20 97-128/48-67 91-99 General appearance: normal weight, no acute distress - Head Head exam: Present: normal inspection, normocephalic - Eye Eye exam: Present: EOMI. Absent: conjunctival injection Pupils: Present: ARGENIS, normal accommodation - ENT ENT exam: Present: normal exam, normal external ear exam, normal oropharynx - Neck Neck exam: Present: normal inspection. Absent: lymphadenopathy, meningismus, tenderness, thyromegaly - Respiratory Respiratory exam: Present: clear to auscultation bilaterally. Absent: rales, rhonchi, stridor, wheezes - Cardiovascular Cardiovascular exam: Present: irregular rhythm. Absent: carotid bruit, diastolic murmur, JVD, regular rate and rhythm, systolic murmur - GI/Abdominal GI/Abdominal exam: Present: normal bowel sounds, soft - Extremities Exam Extremities exam: Present: normal inspection, normal capillary refill, full ROM. Absent: edema - Back Exam Back exam: Present: normal inspection - Neurological Exam Neurological exam: Present: alert, oriented X3, CN II-XII intact - Psychiatric Psychiatric exam: Present: normal affect, normal mood - Skin Skin exam: Present: normal color, warm, dry Results - Labs CBC & BMP: 08/01/17 06:50 07/31/17 02:45 Lab Results: I have reviewed the past 24 hour labs <BobyBrayden - Last Filed: 08/01/17 10:54> Hospitalist: Subjective Interval history: I have interviewed and examined the patient and reviewed all available laboratory test results. She has been treated with intravenous furosemide for acute on chronic congestive heart failure. Laboratory testing demonstrates that her BUN and creatinine have increased from 30-50 and from 1.5-2.0 from yesterday to today. I agree with the assessments and plans of Evelyne Jacobs NP. Her diuretics have been temporarily discontinued. We will follow her renal function for anticipated improvement. Exam - Constitutional Vitals: Period Temp Pulse Resp BP Sys/Woodall Pulse Ox Last 24 Hr 96.8 F-98.5 F 61-99 16-20 97-128/48-67 91-99 Results - Labs CBC & BMP: 08/01/17 06:50 08/01/17 06:50
[2017-08-01 08:35] LABS: Albumin 2.1 G/DL (3.4-5.0); Bilirubin,Total 0.6 MG/DL (0.2-1.0); Calcium 7.9 MG/DL (8.5-10.1); Osmolality,Calculated 292.4 MOS/KG (273-304); Phosphorous 3.1 MG/DL (2.5-4.9); Potassium 3.7 MMOL/L (3.5-5.1)
--- NOTE | 2017-08-01 08:47 | Gastrointestinal Progress Note ---
<WaqarnubiaLiana Yana - Last Filed: 08/01/17 08:43> Assessment and Plan (1) Iron deficiency anemia Status: Acute Assessment and plan: 08/01-H&H is stable 07/06. No overt bleeding. Respiratory status slowly improving. Chest x-ray is pending for this morning. Appetite remains poor at present. Plan an addendum to followed by Dr. Patiño. 07/31-H&H is holding at this time with no overt bleeding. No complaints of abdominal pain. Poor appetite reported. Continue to monitor at present time and will reevaluate GI workup as she continues to improve from a respiratory standpoint. plan an addendum to followed by Dr. Patiño. Current Visit: Yes Gastroenterology - PN: Subj Interval history: CC: Anemia Patient is seen awake and alert lying in bed. States she is feeling little better today. States her breathing is improved somewhat and that she is able to cough up more sputum. She denies any overt bleeding. She states her bowels have not moved because she cannot get up however she denies any abdominal pain. She is tolerating her diet present time. H&H is stable at this time at 07/06. Abdomen is soft, nontender. ROS: Denies shortness of breath or chest pain Exam (Progress Note) - Constitutional Vitals: Period Temp Pulse Resp BP Sys/Woodall Pulse Ox Last 24 Hr 96.8 F-98.5 F 61-99 16-20 97-128/48-67 91-99 General appearance: normal weight, no acute distress - Head Head exam: Present: normal inspection, normocephalic - Eye Eye exam: Present: other (Lids and conjunctive are unremarkable). Absent: scleral icterus - ENT ENT exam: Present: normal exam, normal oropharynx - Neck Neck exam: Present: normal inspection - Respiratory Respiratory exam: Present: clear to auscultation bilaterally. Absent: rales, rhonchi, wheezes - Cardiovascular Cardiovascular exam: Present: regular rate and rhythm. Absent: diastolic murmur , JVD, systolic murmur - GI/Abdominal GI/Abdominal exam: Present: normal bowel sounds, soft. Absent: ascites, distended, mass, organomegaly, tenderness - Extremities Exam Extremities exam: Present: normal inspection, full ROM - Back Exam Back exam: Present: normal inspection - Neurological Exam Neurological exam: Present: alert, oriented X3 - Psychiatric Psychiatric exam: Present: normal affect, normal mood - Skin Skin exam: Present: normal color, warm, dry Results - Labs CBC & BMP: 08/01/17 06:50 08/01/17 06:50 Lab Results: I have reviewed the past 24 hour labs <Georges Patiño - Last Filed: 08/01/17 22:28> Assessment and Plan (1) Iron deficiency anemia Status: Acute Current Visit: Yes (2) Dyspnea Status: Acute Current Visit: Yes Exam (Progress Note) - Constitutional Vitals: Period Temp Pulse Resp BP Sys/Woodall Pulse Ox Last 24 Hr 96.9 F-98.5 F 61-105 16-20 107-125/52-67 91-100 Results - Labs CBC & BMP: 08/01/17 06:50 08/01/17 06:50
--- NOTE | 2017-08-01 08:48 | XRay Report ---
History is COPD Comparison 07/31/2017 The heart is mildly enlarged. The there remain mild the patchy and reticular bilateral pulmonary opacities with some minimal more focal atelectasis in the retrocardiac left base. There has been slight improvement in the interval. Impression: Slight improvement with continued mild diffuse bilateral infiltrates versus edema PROCEDURE INTERPRETED AT [facility] DEPARTMENT OF RADIOLOGY Final Report Signed by: Dr. Fátima Perez
[2017-08-01] MEDS: FUROSEMIDE 40 MG/4 ML VIAL IV SCH (08:54)
[2017-08-01] MEDS: PANTOPRAZOLE 40 MG TABLET PO SCH ×2 (09:03→21:58)
[2017-08-01] MEDS: BISACODYL 5 MG TABLET PO SCH (09:03)
[2017-08-01] MEDS: PREGABALIN 75 MG CAPSULE PO SCH (09:03)
[2017-08-01] MEDS: metOLazone 2.5 MG TABLET PO SCH (09:03)
[2017-08-01] MEDS: DILTIAZEM CD 180 MG CAPSULE PO SCH (09:04)
[2017-08-01] MEDS: ENOXAPARIN 80 MG/0.8 ML SYRINGE SUBCUT SCH ×2 (09:04→21:00)
[2017-08-01] MEDS: POTASSIUM CHLORIDE RIDER 10 MEQ in PREMIX 1 EACH IV PRN ×2 (09:04→15:15)
[2017-08-01] MEDS: SODIUM CHLORIDE 0.9% 1,000 ML IV SCH (09:04)
--- NOTE | 2017-08-01 11:44 | Cardiology Progress Note ---
Damaris Abreu April RN, am scribing for, and in the presence of, AminaSanfordDO jean 11 :44. Assessment and Plan (1) Atrial fibrillation Status: Acute Current Visit: Yes Qualifiers: Atrial fibrillation type: persistent Qualified Code(s): I48.1 - Persistent atrial fibrillation (2) Heart failure with preserved ejection fraction, borderline, class III Status: Chronic Current Visit: Yes (3) Labile hypertension Status: Chronic Assessment and plan: Her blood pressure has been very well controlled. 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 Masterson Summary: Ms. Tran has a history of hypertension and recurrent congestive heart failure. She presented on July 28 with a four-day history of increasing dyspnea her chest x-ray was consistent with congestive heart failure and she was started on Lasix 40 mg IV twice daily. This has since been changed to Zaroxolyn 2.5 p.o. daily. An echocardiogram was done that showed ejection fraction of 65%. Troponin was negative 2. August 01, 2017: Ms. Tran is resting in bed this morning with oxygen use via nasal cannula. She reports she does feel better today with no chest pain and improvement in her shortness of breath. Her diltiazem was changed to extended release yesterday and her heart rates were better during the night. She is currently in A. fib with heart rates in the 90s. Her H&H is stable at 8.1 and 24.4, her creatinine has increased to 2.0. Chest x-ray showed slight improvement. The patient states that she is better today her heart rate is clearly better her creatinine is gotten worse. She is on metolazone it may be time to stop this. He was started by another physician will let them make that decision but at this time no clearly offensive cardiac medicine she is not on VINCENZO or arm she is on a calcium channel eve heart rate is gotten much better with a non-dihydropyridine class calcium channel eve. She sitting up in the chair and states that she may feel a little better she is just tired because they have been working with her too hard. Exam (Progress Note) - Constitutional Vitals: Period Temp Pulse Resp BP Sys/Woodall Pulse Ox Last 24 Hr 96.8 F-98.5 F 61-99 16-20 97-128/48-67 91-99 General appearance: normal weight, no acute distress - Head Head exam: Present: normal inspection. Absent: abrasion, contusion - Eye Eye exam: Present: EOMI. Absent: periorbital swelling, laceration to eyelids - Neck Neck exam: Absent: lymphadenopathy, tenderness - Respiratory Respiratory exam: Present: clear to auscultation bilaterally, other (Oxygen use via nasal cannula). Absent: accessory muscle use, chest wall tenderness - Cardiovascular Cardiovascular exam: Present: irregular rhythm - GI/Abdominal GI/Abdominal exam: Present: normal bowel sounds, soft. Absent: distended, tenderness - Extremities Exam Extremities exam: Absent: calf tenderness, edema - Neurological Exam Neurological exam: Present: alert, oriented X3 - Psychiatric Psychiatric exam: Present: normal affect, depressed - Skin Skin exam: Present: normal color, warm, dry Result/EKG - Labs CBC & BMP: 08/01/17 06:50 08/01/17 06:50 Lab Results: I have reviewed the past 24 hour labs Labs: Laboratory Results - last 24 hr 08/01/17 08/01/17 08/01/17 06:50 06:50 06:50 WBC 7.5 RBC 2.81 L Hgb 8.1 L Hct 24.4 L MCV 86.8 L MCH 29 MCHC 33.2 RDW 15.3 Plt Count 152 D MPV 11.1 Neut % (Auto) 76.5 H Lymph % (Auto) 11.6 L [place] % (Auto) 7.6 Eos % (Auto) 3.7 Baso % (Auto) 0.1 Neut # (Auto) 5.7 Lymph # (Auto) 0.9 L [place] # (Auto) 0.6 Eos # (Auto) 0.3 Baso # (Auto) 0.0 Immature Gran % 0.5 Nucleated RBC % 0.0 Immature Gran # 0.04 Nucleated RBCs # 0.00 Immature Plt Fraction 0.0 Sodium 140 140 Potassium 3.7 3.7 Chloride 107 106 Carbon Dioxide 27 25 Anion Gap 9.7 12.7 BUN 54 H 50 H Creatinine 2.00 H 2.00 H GFR Calculation 23 23 BUN/Creatinine Ratio 27.00 H 25.00 H Glucose 117 H 117 H Calculated Osmolality 294.4 292.4 Calcium 7.7 L 7.9 L Phosphorus 3.1 Magnesium 2.0 Total Bilirubin 0.60 AST 12 ALT 23 Alkaline Phosphatase 83 Total Protein 5.0 L Albumin 2.1 L Globulin 2.9 Albumin/Globulin Ratio 0.7 L - Diagnostic Findings Procedure: Chest x-ray: report reviewed by me - EKG EKG results: interpreted by me EKG shows: atrial fibrillation Amina Abreu Shea, DO, personally performed the services described in this documentation, ascribed by Nithya Ocampo RN in my presence, and it is both accurate and complete .
[2017-08-01] MEDS: AZTREONAM 500 MG in SODIUM CHLORIDE 0.9% 100 ML IV SCH ×2 (13:39→23:08)
[2017-08-01] MEDS: LEVOFLOXACIN INJ 250 MG in PREMIX 1 EACH IV SCH (18:01)
[2017-08-02] MEDS: ALBUTEROL/IPRATROPIUM 3 ML NEB RESP TX SCH ×4 (01:40→19:29)
[2017-08-02 06:46] LABS: Bilirubin,Total 0.5 MG/DL (0.2-1.0); Calcium 7.8 MG/DL (8.5-10.1); Magnesium 2.1 MG/DL (1.8-2.4); Osmolality,Calculated 299.1 MOS/KG (273-304); Potassium 3.9 MMOL/L (3.5-5.1); Total Protein 4.8 G/DL (6.4-8.3)
[2017-08-02] MEDS: LEVOTHYROXINE 75 MCG TABLET PO SCH (06:48)
--- NOTE | 2017-08-02 08:27 | Pulmonology Progress Note ---
Pulmonary - PN: Subj Interval history: I was asked to see patient yesterday because of acute dyspnea. It was apparent that she had congestive heart failure and was ahead on fluids. She has a normal LV ejection fraction but does have some LVH and has both MR and AR. She has diuresed over 4 L and she is feeling better. Still has a pretty high oxygen requirement. Hopefully we can wean her down the nasal oxygen today. 07/31/2017 patient still having some dyspnea. She started to cough up some phlegm. She has been placed on antibiotics and bronchodilators. Weight has not dropped although she has had a good response to diuretics. Will add Zaroxolyn. Chest x-ray pending. Continue empiric antibiotics and bronchodilators. 08/02/2017 patient is feeling better. Seems to be eating and drinking well. We can stop the IV fluids again. Exam (Progress Note) - Constitutional Vitals: Period Temp Pulse Resp BP Sys/Woodall Pulse Ox Last 24 Hr 97.5 F-98.6 F 60-105 16-20 107-129/56-72 90-100 Exam: Patient is alert oriented wearing 2 L nasal oxygen with O2 sat 96%. Pupils react to light. Neck is supple. Chest sounds clear today. Heart irregular with grade 1/6 systolic murmur at left sternal border. Abdomen soft nontender no masses. Bowel sounds present. Extremities no clubbing cyanosis or edema. Calves nontender. Results - Labs CBC & BMP: 08/01/17 06:50 08/02/17 05:59 Lab Results: I have reviewed the past 24 hour labs - Diagnostic Findings Procedure: Chest x-ray: image reviewed by me (Minimal pleural blunting. Cardiomegaly. Little change from last chest x-ray.) Assessment and Plan (1) Congestive heart failure Status: Acute Assessment and plan: Clinically she is in heart failure with bibasilar rales wheezing and radiographically. Not sure why. Will check cardiac isoenzymes, BNP and echo. Ask cardiology to see her. She has no history of chronic lung disease or asthma. 07/30/2017 this is due to diastolic dysfunction and valvular disease. See echo report. She is better with diuresis. Continue same 07/31/2017 appears to need a lot of further diuresis. 08/02/2017 needs further diuresis Current Visit: Yes (2) Anemia Status: Acute Assessment and plan: A chronic anemia may be aggravating her congestive failure. 07/31/2017 hematocrit was 25 yesterday. 08/02/2017 following hemoglobins. Current Visit: Yes (3) Renal insufficiency Status: Acute Assessment and plan: Her creatinine is only slightly higher than it was 2 years ago at 1.8 compared to 1.4. 07/30/2017 creatinine is actually dropped to 1.5 despite the vigorous diuresis. This is a good sign 07/31/2017 has had good urine output. 08/02/2017 creatinine is down to 1.8 today. Current Visit: Yes
--- NOTE | 2017-08-02 08:37 | Hospitalist Progress Note ---
<Evelyne Jacobs - Last Filed: 08/02/17 08:33> Assessment and Plan (1) Acute renal failure Status: Acute Assessment and plan: Renal function improving; BUN/Creatinine 30/1.50; slight improvement from admission at 39/1.80. We will recheck in a.m. 08/01-noted decrease in renal function; BUN and creatinine was grossly increased to 5.4/2.00. This may be secondary to overdiuresis. We will hold Lasix for now and attempt to gently rehydrate. We will recheck labs in a.m. 08/02-BUN and creatinine noted at 51/1.70 this a.m. This is a modest improvement however. We will discontinue rehydration. We agree with electrician maintenance recommendation with the discontinuing sense of the metolazone. We will recheck labs in a.m. We encouraged the patient to increase her p.o. fluid intake. Current Visit: Yes (2) Chronic anemia Status: Acute Assessment and plan: Hemoglobin/hematocrit noted at 8.3/25.4. Noted improvement from 7.8 and 24.3 at the time of admission. Will recheck CBC in AM. 08/01-hemoglobin hematocrit remained stable at 8.1/24.4. We will recheck CBC in a.m. Current Visit: Yes (3) Congestive heart failure Status: Acute Assessment and plan: Chest x-ray mildly improved. A mild degree of cardiomegaly remains. In addition, there is a component of bilateral pulmonary interstitial prominence and small left pleural effusion noted. We will gently diurese and recheck chest x-ray in a.m. 08/01-noted increase in BUN and creatinine; BUN and creatinine noted at 54/2.00. We will hold Lasix today and gently rehydrate. We will monitor closely for signs of volume overload and recheck chest x-ray in a.m. 08/02-chest x-ray moderately improved. BUN and creatinine noted at 51/1.7. We will continue to hold Lasix today. We have discontinued rehydration. We will monitor for signs of fluid overload and recheck chest x-ray in a.m. Current Visit: Yes Hospitalist: Subjective Interval history: Patient seen and examined; chart reviewed. No significant overnight events reported per staff. Case management consultation has been requested for evaluation for possible swing bed placement at the time of discharge. Exam - Constitutional Vitals: Period Temp Pulse Resp BP Sys/Woodall Pulse Ox Last 24 Hr 97.5 F-98.6 F 60-105 16-20 107-129/56-72 90-100 General appearance: normal weight, no acute distress - Head Head exam: Present: normal inspection, normocephalic, atraumatic - Eye Eye exam: Present: EOMI. Absent: conjunctival injection Pupils: Present: ARGENIS, normal accommodation - ENT ENT exam: Present: normal external ear exam, normal oropharynx - Neck Neck exam: Present: normal inspection. Absent: lymphadenopathy, meningismus, tenderness, thyromegaly - Respiratory Respiratory exam: Present: clear to auscultation bilaterally. Absent: rales, rhonchi, stridor, wheezes - Cardiovascular Cardiovascular exam: Present: regular rate and rhythm. Absent: carotid bruit, diastolic murmur, gallop - GI/Abdominal GI/Abdominal exam: Present: normal bowel sounds, soft - Extremities Exam Extremities exam: Present: normal inspection, normal capillary refill, full ROM. Absent: edema - Back Exam Back exam: Present: normal inspection - Neurological Exam Neurological exam: Present: alert, oriented X3, CN II-XII intact - Psychiatric Psychiatric exam: Present: normal affect, normal mood - Skin Skin exam: Present: normal color, warm, dry Results - Labs CBC & BMP: 08/01/17 06:50 08/02/17 05:59 Lab Results: I have reviewed the past 24 hour labs <Brayden Landis - Last Filed: 08/02/17 10:45> Hospitalist: Subjective Interval history: Patient continues to remain hospitalized for management of her acute congestive heart failure and acute renal failure. She is receiving intravenous sodium chloride 0.9% in an effort to improve her renal function. Exam - Constitutional Vitals: Period Temp Pulse Resp BP Sys/Woodall Pulse Ox Last 24 Hr 97.5 F-98.6 F 60-105 16-20 107-129/56-72 90-100 Results - Labs CBC & BMP: 08/02/17 05:56 08/02/17 05:59
--- NOTE | 2017-08-02 08:38 | Gastrointestinal Progress Note ---
<Liana Boyle Yana - Last Filed: 08/02/17 08:36> Assessment and Plan (1) Iron deficiency anemia Status: Acute Assessment and plan: 08/02-No overt bleeding. Resp status improved. Recheck HH today. Plan and addendum to follow by Dr Patiño. 08/01-H&H is stable 07/06. No overt bleeding. Respiratory status slowly improving. Chest x-ray is pending for this morning. Appetite remains poor at present. Plan an addendum to followed by Dr. Patiño. 07/31-H&H is holding at this time with no overt bleeding. No complaints of abdominal pain. Poor appetite reported. Continue to monitor at present time and will reevaluate GI workup as she continues to improve from a respiratory standpoint. plan an addendum to followed by Dr. Patiño. Current Visit: Yes Gastroenterology - PN: Subj Interval history: CC: Anemia Patient is seen, awake and alert sitting up in chair eating breakfast. She states that she is feeling about the same at this time. She continues to have increased sputum production with productive cough. She denies any overt bleeding. Denies any abdominal pain. Appetite is slowly improving. No repeat labs noted for this morning for H&H. Abdomen soft, nontender. ROS: Denies shortness of breath or chest pain Exam (Progress Note) - Constitutional Vitals: Period Temp Pulse Resp BP Sys/Woodall Pulse Ox Last 24 Hr 97.5 F-98.6 F 60-105 16-20 107-129/56-72 90-100 General appearance: normal weight, no acute distress - Head Head exam: Present: normal inspection, normocephalic - Eye Eye exam: Present: other (Lids and conjunctive are unremarkable). Absent: scleral icterus - ENT ENT exam: Present: normal exam, normal oropharynx - Neck Neck exam: Present: normal inspection - Respiratory Respiratory exam: Present: clear to auscultation bilaterally. Absent: rales, rhonchi, wheezes - Cardiovascular Cardiovascular exam: Present: regular rate and rhythm. Absent: diastolic murmur , JVD, systolic murmur - GI/Abdominal GI/Abdominal exam: Present: normal bowel sounds, soft. Absent: ascites, distended, mass, organomegaly, tenderness - Extremities Exam Extremities exam: Present: normal inspection, full ROM - Back Exam Back exam: Present: normal inspection - Neurological Exam Neurological exam: Present: alert, oriented X3 - Psychiatric Psychiatric exam: Present: normal affect, normal mood - Skin Skin exam: Present: normal color, warm, dry Results - Labs CBC & BMP: 08/01/17 06:50 08/02/17 05:59 Lab Results: I have reviewed the past 24 hour labs <Georges Patiño - Last Filed: 08/02/17 22:17> Assessment and Plan (1) Iron deficiency anemia Status: Acute Current Visit: Yes (2) Dyspnea Status: Acute Current Visit: Yes Exam (Progress Note) - Constitutional Vitals: Period Temp Pulse Resp BP Sys/Woodall Pulse Ox Last 24 Hr 96.7 F-970.9 F 60-101 16-20 110-138/57-78 90-100 Results - Labs CBC & BMP: 08/02/17 05:56 08/02/17 05:59
--- NOTE | 2017-08-02 08:49 | XRay Report ---
XR chest 1V portable Indication: COPD Comparison: 01 August 2017 Findings: The heart and mediastinum are normal in size and configuration. The pulmonary vascularity is normal in caliber. Prominent interstitial pulmonary densities are present similar to previous exams. No other lung infiltrates, effusions, pneumothorax or other abnormality is demonstrated. Impression: No acute findings or significant changes. PROCEDURE INTERPRETED AT [facility] DEPARTMENT OF RADIOLOGY Final Report Signed by: Dr. Benito Fernandez
[2017-08-02 08:52] LABS: Hematocrit 23.2 VOL% (35.7-47.0)
[2017-08-02 09:07] LABS: Hemoglobin 7.7 GM/DL (12.0-16.0)
[2017-08-02] MEDS: ENOXAPARIN 80 MG/0.8 ML SYRINGE SUBCUT SCH (09:11)
[2017-08-02] MEDS: PREGABALIN 75 MG CAPSULE PO SCH (09:12)
[2017-08-02] MEDS: PANTOPRAZOLE 40 MG TABLET PO SCH ×2 (09:12→20:27)
[2017-08-02] MEDS: BISACODYL 5 MG TABLET PO SCH (09:12)
[2017-08-02] MEDS: POTASSIUM CHLORIDE RIDER 10 MEQ in PREMIX 1 EACH IV PRN ×2 (09:13→13:20)
[2017-08-02] MEDS: DILTIAZEM CD 180 MG CAPSULE PO SCH (09:13)
[2017-08-02] MEDS: AZTREONAM 500 MG in SODIUM CHLORIDE 0.9% 100 ML IV SCH ×3 (10:28→22:19)
[2017-08-02] MEDS: SODIUM CHLORIDE 0.9% 1,000 ML IV SCH (12:32)
[2017-08-02] MEDS ORDERED: SODIUM CHLORIDE 0.9% 250 ML IV PRN (16:08)
--- NOTE | 2017-08-02 16:08 | Cardiology Progress Note ---
Damaris Abreu April, RN, am scribing for, and in the presence of, Carmina Taylor NP 16:03. <Carmina Taylor - Last Filed: 08/02/17 16:04> Assessment and Plan - Time spent with patient Time spent with patient: Greater than 30 minutes (1) Atrial fibrillation Status: Acute Assessment and plan: Rate controlled on oral Cardizem. Not a candidate for anticoagulation at this time due to severe anemia. I will stop her therapeutic doses of Lovenox given the severity of her anemia. Current Visit: Yes Qualifiers: Atrial fibrillation type: persistent Qualified Code(s): I48.1 - Persistent atrial fibrillation (2) Heart failure with preserved ejection fraction, borderline, class III Status: Chronic Assessment and plan: Acute on chronic CHF secondary to diastolic dysfunction. Her EF is normal. NYHA class III. She has compensated well. Utilizing calcium channel eve for rate control rather than beta-eve at this time. Avoiding VINCENZO inhibitor for fear of worsening renal insufficiency. Current Visit: Yes (3) Labile hypertension Status: Chronic Assessment and plan: Adequately controlled at this time. Will adjust medications accordingly during hospital stay. Current Visit: Yes (4) Pulmonary hypertension Status: Chronic Assessment and plan: Continue current plan of care. Seems to be improving, shortness of breath improving. Current Visit: Yes (5) Anemia Status: Acute Assessment and plan: Transfusions of 2 units of packed red blood cells. Gastroenterology is following. Will discontinue use of Lovenox. Current Visit: Yes Cardiology - PN: Subj Interval history: CRAWLER [employer]AGLINE OPERATOR: Carmina MCRAE NP, am seeing Ms. Tran in the presence of Nithya Ocampo RN. I have personally seen, examined patient. I have discussed this case with Nithya Ocampo RN who is acting as a scribe. Summary: Ms. Tran has a history of hypertension and recurrent congestive heart failure. She presented on July 28 with a four-day history of increasing dyspnea her chest x-ray was consistent with congestive heart failure and she was started on Lasix 40 mg IV twice daily. This has since been changed to Zaroxolyn 2.5 p.o. daily. An echocardiogram was done that showed ejection fraction of 65%. Troponin was negative 2. August 01, 2017: Ms. Tran is resting in bed this morning with oxygen use via nasal cannula. She reports she does feel better today with no chest pain and improvement in her shortness of breath. Her diltiazem was changed to extended release yesterday and her heart rates were better during the night. She is currently in A. fib with heart rates in the 90s. Her H&H is stable at 8.1 and 24.4, her creatinine has increased to 2.0. Chest x-ray showed slight improvement. The patient states that she is better today her heart rate is clearly better her creatinine is gotten worse. She is on metolazone it may be time to stop this. He was started by another physician will let them make that decision but at this time no clearly offensive cardiac medicine she is not on VINCENZO or arm she is on a calcium channel eve heart rate is gotten much better with a non-dihydropyridine class calcium channel eve. She sitting up in the chair and states that she may feel a little better she is just tired because they have been working with her too hard. August 02, 2017: Ms. Tran that she feels much better, denies chest pain shortness of breath. Today's chest x-ray is without acute findings. She has a long-standing history of labile blood pressures, primarily extreme hypertension in the presence of anxiety. Curiously, blood pressures well controlled on low- dose Diltiazem. Remains in atrial fibrillation. Anemia has worsened overnight , gastroenterology is following. Hemoglobin hematocrit is now 7.7 and 23.2 respectively. Patient will benefit from slow transfusion of 2 units of packed red blood cells and I will order at this time. Also, I feel it safest to stop Lovenox given her severe anemia. Creatinine continues to improve. Will further discuss with Dr. Huynh and await additional recommendations. Exam (Progress Note) - Constitutional Vitals: Period Temp Pulse Resp BP Sys/Woodall Pulse Ox Last 24 Hr 97.5 F-98.6 F 60-96 16-20 110-129/56-72 90-100 General appearance: no acute distress, under weight - Head Head exam: Present: normal inspection, other (Wearing glasses). Absent: abrasion, contusion - Eye Eye exam: Present: EOMI. Absent: periorbital swelling, laceration to eyelids Pupils: Present: ARGENIS, normal accommodation - ENT ENT exam: Present: normal external ear exam, normal oropharynx - Neck Neck exam: Absent: lymphadenopathy, tenderness, thyromegaly - Respiratory Respiratory exam: Present: clear to auscultation bilaterally, other (Oxygen use via nasal cannula). Absent: accessory muscle use, chest wall tenderness - Cardiovascular Cardiovascular exam: Present: irregular rhythm (With controlled rates). Absent : JVD, systolic murmur - GI/Abdominal GI/Abdominal exam: Present: normal bowel sounds, soft. Absent: distended, tenderness - Extremities Exam Extremities exam: Absent: calf tenderness, edema - Back Exam Back exam: Absent: CVA tenderness (L), CVA tenderness (R), muscle spasm - Neurological Exam Neurological exam: Present: alert, oriented X3, abnormal gait - Psychiatric Psychiatric exam: Present: normal affect, depressed - Skin Skin exam: Present: normal color, warm, dry Result/EKG - Labs CBC & BMP: 08/02/17 05:56 08/02/17 05:59 Lab Results: I have reviewed the past 24 hour labs Labs: Laboratory Results - last 24 hr 08/02/17 08/02/17 08/02/17 05:56 05:59 05:59 Hgb 7.7 L Hct 23.2 L Sodium 142 Potassium 3.9 Chloride 109 H Carbon Dioxide 24 Anion Gap 12.9 BUN 51 H Creatinine 1.70 H GFR Calculation 28 BUN/Creatinine Ratio 30.00 H Glucose 155 H Calculated Osmolality 299.1 Calcium 7.8 L Phosphorus 3.3 Magnesium 2.1 Total Bilirubin 0.50 AST 18 ALT 22 Alkaline Phosphatase 83 Total Protein 4.8 L Albumin 2.0 L Globulin 2.8 Albumin/Globulin Ratio 0.7 L - Diagnostic Findings Procedure: Chest x-ray: report reviewed by me - EKG EKG results: interpreted by mt EKG shows: atrial fibrillation <Claribel Huynh - Last Filed: 08/02/17 20:55> Assessment and Plan (1) Atrial fibrillation Status: Acute Current Visit: Yes Qualifiers: Atrial fibrillation type: persistent Qualified Code(s): I48.1 - Persistent atrial fibrillation (2) Heart failure with preserved ejection fraction, borderline, class III Status: Chronic Current Visit: Yes (3) Labile hypertension Status: Chronic Current Visit: Yes (4) Pulmonary hypertension Status: Chronic Current Visit: Yes Cardiology - PN: Subj Interval history: I discussed with Ms. Taylor earlier today. I saw the patient independently. She states that she is overall better and had a better day today than yesterday. Anemia is concerning and more suggestive that she is not a prop setter anticoagulation candidate until this is clarified. Exam (Progress Note) - Constitutional Vitals: Period Temp Pulse Resp BP Sys/Woodall Pulse Ox Last 24 Hr 96.7 F-98.2 F 60-96 16-20 110-130/57-72 90-100 - Respiratory Respiratory exam: Present: clear to auscultation bilaterally (clear but cough with deep inspiration) Result/EKG - Labs CBC & BMP: 08/02/17 05:56 08/02/17 05:59 Labs: Laboratory Results - last 24 hr 08/02/17 08/02/17 08/02/17 05:56 05:59 05:59 Hgb 7.7 L Hct 23.2 L Sodium 142 Potassium 3.9 Chloride 109 H Carbon Dioxide 24 Anion Gap 12.9 BUN 51 H Creatinine 1.70 H GFR Calculation 28 BUN/Creatinine Ratio 30.00 H Glucose 155 H Calculated Osmolality 299.1 Calcium 7.8 L Phosphorus 3.3 Magnesium 2.1 Total Bilirubin 0.50 AST 18 ALT 22 Alkaline Phosphatase 83 Total Protein 4.8 L Albumin 2.0 L Globulin 2.8 Albumin/Globulin Ratio 0.7 L Blood Type Antibody Screen Crossmatch 08/02/17 08/02/17 17:45 18:55 Hgb Hct Sodium Potassium Chloride Carbon Dioxide Anion Gap BUN Creatinine GFR Calculation BUN/Creatinine Ratio Glucose Calculated Osmolality Calcium Phosphorus Magnesium Total Bilirubin AST ALT Alkaline Phosphatase Total Protein Albumin Globulin Albumin/Globulin Ratio Blood Type O POSITIVE O POSITIVE Antibody Screen Negative Crossmatch See Detail I, Carmina Taylor NP, personally performed the services described in this documentation, ascribed by Nithya Ocampo RN in my presence, and it is both accurate and complete 603 .
[2017-08-02] MEDS ORDERED: FUROSEMIDE 40 MG/4 ML VIAL IV ONE (16:09)
[2017-08-02] MEDS: LEVOFLOXACIN INJ 250 MG in PREMIX 1 EACH IV SCH (17:34)
[2017-08-02] MEDS ORDERED: FUROSEMIDE 100 MG/10 ML VIAL ONE (23:36)
[2017-08-02] MEDS ORDERED: FUROSEMIDE 40 MG/4 ML VIAL ONE (23:36)
[2017-08-03] MEDS: ALBUTEROL/IPRATROPIUM 3 ML NEB RESP TX SCH ×4 (00:11→19:24)
[2017-08-03] MEDS: LEVOTHYROXINE 75 MCG TABLET PO SCH (06:06)
[2017-08-03 06:55] LABS: Basophils % 0.5 % (0.0-0.8); Eosinophils # 0.4 10*3/uL (0.0-0.87); Eosinophils % 5.4 % (0.00-10.9); Hematocrit 33.7 VOL% (35.7-47.0); Immature Granulocytes % 5.2 %; Immature Granulocytes Absolute 0.34 #; Lymphocytes # 1.1 10*3/uL (1.4-4.0); Lymphocytes % 16.1 % (21.3-54.2); Mean Corpuscular HGB Conc 33.8 GM/DL (32-36); Mean Corpuscular Hemoglobin 29 PG (27-34); Mean Corpuscular Volume 85.8 FL (87-102); Monocytes # 0.7 10*3/uL (0.11-0.8); Monocytes % 11.2 % (1.7-12.7); Neutrophils % 61.6 % (38.7-73.9); Red Cell Distribution Width 15.3 % (9.3-17.3); White Blood Count 6.5 T/CUMM (4-12)
[2017-08-03 07:10] LABS: Red Blood Count 3.93 MC/CUMM (3.8-5.5)
[2017-08-03 07:11] LABS: Hemoglobin 11.4 GM/DL (12.0-16.0); Platelet Count 235 T/CUMM (130-400)
[2017-08-03 07:19] LABS: Band Neutrophils 4 % (0-10); Eosinophils 8 % (0-10); Giant Platelets Few; Hypochromasia 1+; Lymphocytes 10 % (20-55); Microcytosis Slight; Ovalocytes Slight; Platelet Estimate Adequate; Segmented Neutrophils 69 % (50-85); Total Cells Counted 100
[2017-08-03 07:28] LABS: Calcium 8.6 MG/DL (8.5-10.1); Magnesium 1.9 MG/DL (1.8-2.4); Osmolality,Calculated 299.8 MOS/KG (273-304); Potassium 4.5 MMOL/L (3.5-5.1)
--- NOTE | 2017-08-03 08:21 | Hospitalist Progress Note ---
Assessment and Plan (1) Chronic anemia Status: Acute Assessment and plan: Hemoglobin/hematocrit noted at 8.3/25.4. Noted improvement from 7.8 and 24.3 at the time of admission. Will recheck CBC in AM. 08/01-hemoglobin hematocrit remained stable at 8.1/24.4. We will recheck CBC in a.m. 08/03-patient was transfused 2 units of PRBCs on yesterday. Hemoglobin and hematocrit improved to 11.4/33.7. No overt signs and symptoms of bleeding noted. Will recheck CBC in a.m. Current Visit: Yes (2) Congestive heart failure Status: Acute Assessment and plan: Chest x-ray mildly improved. A mild degree of cardiomegaly remains. In addition, there is a component of bilateral pulmonary interstitial prominence and small left pleural effusion noted. We will gently diurese and recheck chest x-ray in a.m. 08/01-noted increase in BUN and creatinine; BUN and creatinine noted at 54/2.00. We will hold Lasix today and gently rehydrate. We will monitor closely for signs of volume overload and recheck chest x-ray in a.m. 08/02-chest x-ray moderately improved. BUN and creatinine noted at 51/1.7. We will continue to hold Lasix today. We have discontinued rehydration. We will monitor for signs of fluid overload and recheck chest x-ray in a.m. 08/03-we will continue calcium channel eve for rate control and avoid VINCENZO inhibitor per cardiology recommendation. Current Visit: Yes Hospitalist: Subjective Interval history: Patient seen and examined; chart reviewed. No significant overnight events reported per staff. The patient was transfused blood products on yesterday; hemoglobin hematocrit improved to 11.4/33.7. Exam - Constitutional Vitals: Period Temp Pulse Resp BP Sys/Woodall Pulse Ox Last 24 Hr 96.7 F-970.9 F 77-108 16-77 107-145/53-78 93-100 General appearance: normal weight, no acute distress - Head Head exam: Present: normal inspection, normocephalic, atraumatic - Eye Eye exam: Present: EOMI. Absent: conjunctival injection Pupils: Present: ARGENIS - ENT ENT exam: Present: normal exam, normal external ear exam, normal oropharynx - Neck Neck exam: Present: normal inspection. Absent: lymphadenopathy, meningismus, tenderness, thyromegaly - Respiratory Respiratory exam: Present: clear to auscultation bilaterally. Absent: rales, rhonchi, stridor, wheezes - Cardiovascular Cardiovascular exam: Present: regular rate and rhythm. Absent: carotid bruit, diastolic murmur, gallop, JVD, rubs, systolic murmur - GI/Abdominal GI/Abdominal exam: Present: normal bowel sounds, soft - Extremities Exam Extremities exam: Present: normal inspection, normal capillary refill, full ROM. Absent: edema - Back Exam Back exam: Present: normal inspection - Neurological Exam Neurological exam: Present: alert, oriented X3, CN II-XII intact - Psychiatric Psychiatric exam: Present: normal affect, normal mood - Skin Skin exam: Present: normal color, warm, dry Results - Labs CBC & BMP: 08/03/17 05:56 08/03/17 05:55 Lab Results: I have reviewed the past 24 hour labs
--- NOTE | 2017-08-03 08:39 | Pulmonology Progress Note ---
Pulmonary - PN: Subj Interval history: I was asked to see patient yesterday because of acute dyspnea. It was apparent that she had congestive heart failure and was ahead on fluids. She has a normal LV ejection fraction but does have some LVH and has both MR and AR. She has diuresed over 4 L and she is feeling better. Still has a pretty high oxygen requirement. Hopefully we can wean her down the nasal oxygen today. 07/31/2017 patient still having some dyspnea. She started to cough up some phlegm. She has been placed on antibiotics and bronchodilators. Weight has not dropped although she has had a good response to diuretics. Will add Zaroxolyn. Chest x-ray pending. Continue empiric antibiotics and bronchodilators. 08/02/2017 patient is feeling better. Seems to be eating and drinking well. We can stop the IV fluids again. 08/03/2017 patient got 2 units of blood yesterday and some Lasix in between. Her weight is actually down a little bit. She still has basilar crackles and is generally weak. I am going to put her on low-dose oral Lasix. Exam (Progress Note) - Constitutional Vitals: Period Temp Pulse Resp BP Sys/Woodall Pulse Ox Last 24 Hr 96.7 F-970.9 F 77-108 16-77 107-145/53-78 93-100 Exam: Patient is alert oriented wearing 2 L nasal oxygen with O2 sat 96%. Pupils react to light. Neck is supple. Chest shows basilar crackles bilaterally. Heart irregular with grade 1/6 systolic murmur at left sternal border. Abdomen soft nontender no masses. Bowel sounds present. Extremities no clubbing cyanosis or edema. Calves nontender. Results - Labs CBC & BMP: 08/03/17 05:56 08/03/17 05:55 Lab Results: I have reviewed the past 24 hour labs Assessment and Plan (1) Congestive heart failure Status: Acute Assessment and plan: Clinically she is in heart failure with bibasilar rales wheezing and radiographically. Not sure why. Will check cardiac isoenzymes, BNP and echo. Ask cardiology to see her. She has no history of chronic lung disease or asthma. 07/30/2017 this is due to diastolic dysfunction and valvular disease. See echo report. She is better with diuresis. Continue same 07/31/2017 appears to need a lot of further diuresis. 08/02/2017 needs further diuresis 08/03/2017 still has some basilar crackles. Will put her on low-dose oral Lasix. Recheck BNP Current Visit: Yes (2) Anemia Status: Acute Assessment and plan: A chronic anemia may be aggravating her congestive failure. 07/31/2017 hematocrit was 25 yesterday. 08/02/2017 following hemoglobins. 08/03/2017 hematocrit 33 posttransfusion. Current Visit: Yes (3) Renal insufficiency Status: Acute Assessment and plan: Her creatinine is only slightly higher than it was 2 years ago at 1.8 compared to 1.4. 07/30/2017 creatinine is actually dropped to 1.5 despite the vigorous diuresis. This is a good sign 07/31/2017 has had good urine output. 08/02/2017 creatinine is down to 1.8 today. 08/03/2017 creatinine down to 1.6. Current Visit: Yes
[2017-08-03] MEDS ORDERED: FUROSEMIDE 20 MG TABLET PO SCH (09:00)
[2017-08-03] MEDS: BISACODYL 5 MG TABLET PO SCH (09:08)
[2017-08-03] MEDS: ENOXAPARIN 80 MG/0.8 ML SYRINGE SUBCUT SCH (09:08)
[2017-08-03] MEDS: PANTOPRAZOLE 40 MG TABLET PO SCH ×2 (09:08→20:54)
[2017-08-03] MEDS: PREGABALIN 75 MG CAPSULE PO SCH (09:08)
[2017-08-03] MEDS: DILTIAZEM CD 180 MG CAPSULE PO SCH (09:08)
[2017-08-03] MEDS: LEVOFLOXACIN 250 MG TABLET PO SCH (09:10)
--- NOTE | 2017-08-03 10:40 | Cardiology Progress Note ---
Assessment and Plan - Time spent with patient Time spent with patient: Greater than 30 minutes (1) Atrial fibrillation Status: Acute Assessment and plan: Rate controlled on oral Cardizem. Not a candidate for anticoagulation at this time due to severe anemia. I will stop her therapeutic doses of Lovenox given the severity of her anemia, renal insufficiency. Will start low-dose oral aspirin daily. CHADVASC SCORE 5 Current Visit: Yes Qualifiers: Atrial fibrillation type: persistent Qualified Code(s): I48.1 - Persistent atrial fibrillation (2) Heart failure with preserved ejection fraction, borderline, class III Status: Chronic Assessment and plan: Acute on chronic CHF secondary to diastolic dysfunction. Her EF is normal. NYHA class III. She has compensated well. Utilizing calcium channel eve for rate control rather than beta-eve at this time. Avoiding VINCENZO inhibitor for fear of worsening renal insufficiency. Current Visit: Yes (3) Labile hypertension Status: Chronic Assessment and plan: Seems to be well controlled during hospital stay. She has a history of labile blood pressure in the home setting. Suspect this may be related to anxiety or medication noncompliance/confusion. Nonetheless, seems to be well-controlled during review of vital signs during this hospitalization. Current Visit: Yes (4) Pulmonary hypertension Status: Chronic Assessment and plan: Continue current plan of care. Seems to be improving, shortness of breath improving. Current Visit: Yes (5) Anemia Status: Acute Assessment and plan: Responded well to transfusions of packed red blood cells last night. Stopping Lovenox, starting low-dose aspirin. Current Visit: Yes (6) Acute diastolic CHF (congestive heart failure), NYHA class 3 Status: Acute Assessment and plan: Acute CHF secondary to diastolic dysfunction. EF 65%. Initially, NYHA class IV , now class III. Continue with diuretics. Rather than beta blockers, using calcium channel blockers as she has traditionally responded better to calcium channel blockers and has many medication sensitivities. Unable to use VINCENZO inhibitor due to fear of worsening her renal insufficiency. Current Visit: Yes Cardiology - PN: Subj Interval history: SUMMARY: Ms. Tran has a history of hypertension and recurrent congestive heart failure. She presented on July 28 with a four-day history of increasing dyspnea her chest x-ray was consistent with congestive heart failure and she was started on Lasix 40 mg IV twice daily. This has since been changed to Zaroxolyn 2.5 p.o. daily. An echocardiogram was done that showed ejection fraction of 65%. Troponin was negative 2. 2016: Ms. Tran is resting in bed this morning with oxygen use via nasal cannula. She reports she does feel better today with no chest pain and improvement in her shortness of breath. Her diltiazem was changed to extended release yesterday and her heart rates were better during the night. She is currently in A. fib with heart rates in the 90s. Her H&H is stable at 8.1 and 24.4, her creatinine has increased to 2.0. Chest x-ray showed slight improvement. The patient states that she is better today her heart rate is clearly better her creatinine is gotten worse. She is on metolazone it may be time to stop this. He was started by another physician will let them make that decision but at this time no clearly offensive cardiac medicine she is not on VINCENZO or arm she is on a calcium channel eve heart rate is gotten much better with a non-dihydropyridine class calcium channel eve. She sitting up in the chair and states that she may feel a little better she is just tired because they have been working with her too hard. 2016: Ms. Tran that she feels much better, denies chest pain shortness of breath. Today's chest x-ray is without acute findings. She has a long-standing history of labile blood pressures, primarily extreme hypertension in the presence of anxiety. Curiously, blood pressures well controlled on low- dose Diltiazem. Remains in atrial fibrillation. Anemia has worsened overnight , gastroenterology is following. Hemoglobin and hematocrit now 7.7 and 23.2 respectively. Patient will benefit from slow transfusion of 2 units of packed red blood cells and I will order at this time. Also, I feel it safest to stop Lovenox given her severe anemia. Creatinine continues to improve. Will further discuss with Dr. Huynh and await additional recommendations. 2016: Ms. Tran is sitting up in the bedside chair visiting with her sister today. She received 2 units of packed red blood cells yesterday and her anemia improved significantly. I will stop her Lovenox given her need for packed red blood cells due to anemia. I will start a low-dose aspirin daily and will continue to monitor her anemia. (CHADVASC SCORE 5). Continue to use TEDs. In general, she is feeling better. Creatinine has minimally improved overnight (1.6). According to weights, she diuresed 1/2 kg overnight. Continues to cough but this too is improving. I will slightly increase oral dose Lasix this morning. I will further discuss with Dr. Huynh and await additional recommendations. Exam (Progress Note) - Constitutional Vitals: Period Temp Pulse Resp BP Sys/Woodall Pulse Ox Last 24 Hr 96.7 F-970.9 F 77-108 16-77 107-145/53-78 93-100 Exam: General: [Thin, female. Sitting up in the bedside chair. No apparent distress.] [Pleasant and cooperative. ] [Appears comfortable.] HEENT: [PERRL, normocephalic, atraumatic. Mucous membranes moist. No jaundice noted. Conjunctiva moist and clear, sclerae anicteric] Neck: No JVD/HJR, no thyromegaly or lymphadenopathy noted. No carotid bruit appreciated Cardiac: [Irregularly irregular rhythm, controlled rate. [No murmur, rub or gallop.] Lungs: [Inspiratory crackles posteriorly in the bases, improved but persist with cough. No wheezing. ] Wearing oxygen in use via nasal cannula Abdomen: Soft, bowel sounds normoactive. Nontender and nondistended. No abdominal bruit or thrill noted. No masses noted. Musculoskeletal: No fluid collection. Decreased range of motion is noted. Extremities: No clubbing, cyanosis noted. [ No edema noted. TEDs.] Upper extremity pulses 2+. Lower extremity pulses 2+. Capillary refill less than 3 seconds. Skin: No unusual lesions or rashes. No skin breakdown appreciated. Neuro: Awake, alert and oriented 3. Moves all extremities well without hemiparesis or paralysis. No essential tremor is appreciated. Result/EKG - Labs CBC & BMP: 08/03/17 05:56 08/03/17 05:55 Lab Results: I have reviewed the past 24 hour labs Labs: Laboratory Results - last 24 hr 08/02/17 08/02/17 08/03/17 17:45 18:55 05:55 WBC RBC Hgb Hct MCV MCH MCHC RDW Plt Count MPV Neut % (Auto) Lymph % (Auto) [place] % (Auto) Eos % (Auto) Baso % (Auto) Neut # (Auto) Lymph # (Auto) [place] # (Auto) Eos # (Auto) Baso # (Auto) Total Counted Immature Gran % Nucleated RBC % Immature Gran # Segmented Neutrophils Band Neutrophils Lymphocytes Monocytes Eosinophils Nucleated RBCs # Platelet Estimate Giant Platelets Immature Plt Fraction Hypochromasia Microcytosis Ovalocytes Sodium 144 Potassium 4.5 Chloride 109 H Carbon Dioxide 27 Anion Gap 12.5 BUN 48 H Creatinine 1.60 H GFR Calculation 30 BUN/Creatinine Ratio 30.00 H Glucose 114 H Calculated Osmolality 299.8 Calcium 8.6 Magnesium 1.9 Blood Type O POSITIVE O POSITIVE Antibody Screen Negative Crossmatch See Detail 08/03/17 05:56 WBC 6.5 RBC 3.93 D Hgb 11.4 L D Hct 33.7 L MCV 85.8 L MCH 29 MCHC 33.8 RDW 15.3 Plt Count 235 D MPV 11.0 Neut % (Auto) 61.6 Lymph % (Auto) 16.1 L [place] % (Auto) 11.2 Eos % (Auto) 5.4 Baso % (Auto) 0.5 Neut # (Auto) 4.0 Lymph # (Auto) 1.1 L [place] # (Auto) 0.7 Eos # (Auto) 0.4 Baso # (Auto) 0.0 Total Counted 100 Immature Gran % 5.2 Nucleated RBC % 0.0 Immature Gran # 0.34 Segmented Neutrophils 69 Band Neutrophils 4 Lymphocytes 10 L Monocytes 9 Eosinophils 8 Nucleated RBCs # 0.00 Platelet Estimate Adequate Giant Platelets Few Immature Plt Fraction 0.0 Hypochromasia 1+ Microcytosis Slight Ovalocytes Slight Sodium Potassium Chloride Carbon Dioxide Anion Gap BUN Creatinine GFR Calculation BUN/Creatinine Ratio Glucose Calculated Osmolality Calcium Magnesium Blood Type Antibody Screen Crossmatch - EKG EKG results: interpreted by me EKG shows: atrial fibrillation
[2017-08-03] MEDS ORDERED: FUROSEMIDE 40 MG/4 ML VIAL IV ONE (16:05)
[2017-08-04] MEDS: ALBUTEROL/IPRATROPIUM 3 ML NEB RESP TX SCH ×4 (01:14→20:24)
[2017-08-04] MEDS: LEVOTHYROXINE 75 MCG TABLET PO SCH (06:40)
[2017-08-04 06:57] LABS: Basophils % 0.4 % (0.0-0.8); Eosinophils # 0.3 10*3/uL (0.0-0.87); Eosinophils % 4.9 % (0.00-10.9); Hematocrit 34.9 VOL% (35.7-47.0); Hemoglobin 11.7 GM/DL (12.0-16.0); Immature Granulocytes % 6.1 %; Immature Granulocytes Absolute 0.42 #; Lymphocytes # 1.3 10*3/uL (1.4-4.0); Lymphocytes % 18.9 % (21.3-54.2); Mean Corpuscular HGB Conc 33.5 GM/DL (32-36); Mean Corpuscular Hemoglobin 29 PG (27-34); Mean Corpuscular Volume 86.6 FL (87-102); Mean Platelet Volume 10.6 FL (9.6-12.0); Monocytes # 0.8 10*3/uL (0.11-0.8); Monocytes % 11.8 % (1.7-12.7); Neutrophils % 57.9 % (38.7-73.9); Platelet Count 286 T/CUMM (130-400); Red Blood Count 4.03 MC/CUMM (3.8-5.5); Red Cell Distribution Width 15.3 % (9.3-17.3); White Blood Count 6.9 T/CUMM (4-12)
[2017-08-04 07:24] LABS: Albumin 2.5 G/DL (3.4-5.0); Bilirubin,Total 0.9 MG/DL (0.2-1.0); Calcium 9.1 MG/DL (8.5-10.1); Phosphorous 4.9 MG/DL (2.5-4.9); Potassium 4.5 MMOL/L (3.5-5.1); Total Protein 5.7 G/DL (6.4-8.3)
--- NOTE | 2017-08-04 07:44 | XRay Report ---
Exam: XR chest 1V portable Date: 08/04/2017 4:00 AM Indication: COPD Comparison: 08/02/2017 Technical: AP Findings: Cardiomegaly present with low volume left effusion. Oxygen tubing external cardiac leads are present. The mediastinum is otherwise intact. No obvious consolidating infiltrate or pneumothorax Impression: 1. Cardiomegaly with low volume effusions and mild shunt vascularity cardiac decompensation PROCEDURE INTERPRETED AT [facility], [place] DEPARTMENT OF RADIOLOGY Final Report Signed by: Dr. Joseluis Wise
[2017-08-04 07:48] LABS: Band Neutrophils 1 % (0-10); Eosinophils 5 % (0-10); Hypochromasia 1+; Lymphocytes 23 % (20-55); Microcytosis Slight; Segmented Neutrophils 59 % (50-85); Total Cells Counted 100
[2017-08-04 07:49] LABS: Platelet Estimate Normal
--- NOTE | 2017-08-04 08:57 | Pulmonology Progress Note ---
Pulmonary - PN: Subj Interval history: I was asked to see patient yesterday because of acute dyspnea. It was apparent that she had congestive heart failure and was ahead on fluids. She has a normal LV ejection fraction but does have some LVH and has both MR and AR. She has diuresed over 4 L and she is feeling better. Still has a pretty high oxygen requirement. Hopefully we can wean her down the nasal oxygen today. 07/31/2017 patient still having some dyspnea. She started to cough up some phlegm. She has been placed on antibiotics and bronchodilators. Weight has not dropped although she has had a good response to diuretics. Will add Zaroxolyn. Chest x-ray pending. Continue empiric antibiotics and bronchodilators. 08/02/2017 patient is feeling better. Seems to be eating and drinking well. We can stop the IV fluids again. 08/03/2017 patient got 2 units of blood yesterday and some Lasix in between. Her weight is actually down a little bit. She still has basilar crackles and is generally weak. I am going to put her on low-dose oral Lasix. 08/04/2017 patient is feeling better. Slept well. Not dyspneic. Check room air O2 sats. From my standpoint she could be moved to a swing bed. Does need to have her chemistries followed. Exam (Progress Note) - Constitutional Vitals: Period Temp Pulse Resp BP Sys/Woodall Pulse Ox Last 24 Hr 96.2 F-98.3 F 69-108 18-20 123-132/61-87 83-100 Exam: Patient is alert oriented wearing 2 L nasal oxygen with O2 sat 96%. Pupils react to light. Neck is supple. Chest shows basilar crackles bilaterally. Heart irregular with grade 1/6 systolic murmur at left sternal border. Abdomen soft nontender no masses. Bowel sounds present. Extremities no clubbing cyanosis or edema. Calves nontender. Results - Labs CBC & BMP: 08/04/17 06:02 08/04/17 06:02 Lab Results: I have reviewed the past 24 hour labs - Diagnostic Findings Procedure: Chest x-ray: image reviewed by me (Cardiomegaly. The increased interstitial edema and small pleural effusions are improved.) Assessment and Plan (1) Congestive heart failure Status: Acute Assessment and plan: Clinically she is in heart failure with bibasilar rales wheezing and radiographically. Not sure why. Will check cardiac isoenzymes, BNP and echo. Ask cardiology to see her. She has no history of chronic lung disease or asthma. 07/30/2017 this is due to diastolic dysfunction and valvular disease. See echo report. She is better with diuresis. Continue same 07/31/2017 appears to need a lot of further diuresis. 08/02/2017 needs further diuresis 08/03/2017 still has some basilar crackles. Will put her on low-dose oral Lasix. Recheck BNP 08/04/2017 this seems to be under control. Should be ready for transfer to swing bed. Her BNP is down from the 700s to the 300s. Current Visit: Yes (2) Anemia Status: Acute Assessment and plan: A chronic anemia may be aggravating her congestive failure. 07/31/2017 hematocrit was 25 yesterday. 08/02/2017 following hemoglobins. 08/03/2017 hematocrit 33 posttransfusion. Current Visit: Yes (3) Renal insufficiency Status: Acute Assessment and plan: Her creatinine is only slightly higher than it was 2 years ago at 1.8 compared to 1.4. 07/30/2017 creatinine is actually dropped to 1.5 despite the vigorous diuresis. This is a good sign 07/31/2017 has had good urine output. 08/02/2017 creatinine is down to 1.8 today. 08/03/2017 creatinine down to 1.6. 08/04/2017 creatinine 1.8. Does need follow-up on her renal function and electrolytes with diuretics going forward. Current Visit: Yes
[2017-08-04] MEDS: BISACODYL 5 MG TABLET PO SCH (09:15)
[2017-08-04] MEDS: ASPIRIN EC 81 MG TABLET PO SCH (09:15)
[2017-08-04] MEDS: PREGABALIN 75 MG CAPSULE PO SCH (09:15)
[2017-08-04] MEDS: LEVOFLOXACIN 250 MG TABLET PO SCH (09:15)
[2017-08-04] MEDS: PANTOPRAZOLE 40 MG TABLET PO SCH ×2 (09:15→21:18)
[2017-08-04] MEDS: FUROSEMIDE 40 MG TABLET PO SCH (09:15)
[2017-08-04] MEDS: DILTIAZEM CD 180 MG CAPSULE PO SCH (09:15)
--- NOTE | 2017-08-04 10:06 | Discharge Summary ---
<Evelyne Jacobs - Last Filed: 08/04/17 11:26> Hospital Course - Hospital Course Hospital Course: This is a chronically ill 79-year-old female that presented to the ED at [facility] on the morning of June 27, 2017 for the evaluation of back pain. Patient has a medical history significant for hypothyroidism, hypertension, degenerative disc disease, osteoarthritis, bowel obstruction, renal insufficiency, gastroesophageal reflux disease, and chronic anemia. Patient has a surgical history significant for appendectomy, bile duct surgery, hysterectomy, and esophagogastroduodenoscopy. The patient reports that she experiences chronic pain in her back due to severe osteoarthritis and degenerative disc disease. She reported that she is followed in outpatient setting by Dr. James and receives injections every 3 months. Patient reported that her last injection was in June 2017. She reported that her back to have been hurting worse prompting her to present to the ED for further evaluation. The patient was assessed at the time of ED presentation. The patient was noted to be mildly febrile with a temperature noted at 99.8. Labs were obtained which were significant for white blood cell count 12.9, hemoglobin 9.0, hematocrit 27.3, platelet count 129, BUN 23, creatinine 1.0, and glucose 184. Urinalysis was significant for urine urobilinogen greater than 2.0, urine leukocytes large, urine RBCs 8, urine WBC 63, and urine squamous epithelial cells, urine bacteria, and urine mucus was noted as many. Chest x-ray was essentially unremarkable for the presence of any acute cardiopulmonary disease. The patient was subsequently admitted to the hospitalist service for continuation of care. The sepsis bundle was initiated. Empiric antibiotics and gentle rehydration was ordered. During the clinical encounter, pulmonary, gastroenterology, and cardiology consultations were requested and the patient was evaluated and treated. Physical and Occupational Therapy consultations were requested; the patient was evaluated and treated. The patient's condition gradually improved. The patient condition is stable. He has not experienced any significant overnight events. Today, we feel that she is indeed appropriate for discharge to [facility] in [place], [place]. - Time spent with patient Time with patient DS: Less than 30 minutes Diagnosis - Discharge Diagnosis (1) Chronic anemia Status: Chronic (2) Congestive heart failure Status: Chronic Specialty Discharge - Follow Up or Referrals - Speciality Discharge Instructions Hospitalist Instructions: Follow-up with primary care physician in 5-7 days. Continue to take all medications as prescribed. Discharge Plan - Discharge Data Disposition: Swing Bed, Hos Based, [facility] - Discharge Medications New Bisacodyl Tab [Dulcolax Tab] 10 mg PO DAILY tablet Diltiazem Cd Cap [Cardizem CD] 180 mg PO DAILY capsule Continue Furosemide Tab [Lasix Tab] 40 mg PO QAM Levothyroxine Tab [Synthroid Tab] 75 mcg PO DAILY@0700 Aspirin [Ecotrin] 81 mg PO BEDTIME Pregabalin [Lyrica] 75 mg PO QAM Multivit/Folic Acid/Vit K1 [One-A-Day Women's 50 Plus Tab] 1 each PO QAM Discontinued NIFEdipine XL TAB [Procardia Xl] 30 mg PO BEDTIME cloNIDine TAB [Catapres Tab] 0.1 mg PO TID PRN PRN Reason: SYSTOLIC >190 hydrALAZINE TAB [Apresoline Tab] 100 mg PO TID Valsartan 320 mg PO QAM Carvedilol 25 mg PO BID - Follow Up or Referral - Forms/Instructions Instructions: Heart Failure (DC), Dehydration (DC), Leukocytosis (DC), Anemia ( DC) Exam - Constitutional Vitals: Period Temp Pulse Resp BP Sys/Woodall Pulse Ox Last 24 Hr 96.2 F-98.3 F 69-135 18-20 112-132/45-87 83-100 General appearance: normal weight, no acute distress - Head Head exam: Present: normal inspection, normocephalic - Eye Eye exam: Present: EOMI. Absent: conjunctival injection Pupils: Present: ARGENIS, normal accommodation - ENT ENT exam: Present: normal exam, normal external ear exam, normal oropharynx - Neck Neck exam: Present: normal inspection. Absent: lymphadenopathy, meningismus, tenderness, thyromegaly - Respiratory Respiratory exam: Present: clear to auscultation bilaterally. Absent: rales, rhonchi, stridor, wheezes - Cardiovascular Cardiovascular exam: Present: irregular rhythm. Absent: carotid bruit, diastolic murmur, gallop, systolic murmur, tachycardia - GI/Abdominal GI/Abdominal exam: Present: normal bowel sounds, soft - Extremities Exam Extremities exam: Present: normal inspection, normal capillary refill, full ROM. Absent: edema - Back Exam Back exam: Present: normal inspection - Neurological Exam Neurological exam: Present: alert, oriented X3, CN II-XII intact - Psychiatric Psychiatric exam: Present: normal affect, normal mood - Skin Skin exam: Present: normal color, warm, dry Discharge Results Procedures and tests throughout hospitalization: Pending Orders 07/29/17 09:00 Occult Blood, Stool Stat 08/03/17 16:05 Occult Blood, Stool Routine Labs on day of discharge: Labs from last 24 hours 08/04/17 08/04/17 08/04/17 06:02 06:02 06:02 WBC 6.9 RBC 4.03 Hgb 11.7 L Hct 34.9 L MCV 86.6 L MCH 29 MCHC 33.5 RDW 15.3 Plt Count 286 D MPV 10.6 Neut % (Auto) 57.9 Lymph % (Auto) 18.9 L [place] % (Auto) 11.8 Eos % (Auto) 4.9 Baso % (Auto) 0.4 Neut # (Auto) 4.0 Lymph # (Auto) 1.3 L [place] # (Auto) 0.8 Eos # (Auto) 0.3 Baso # (Auto) 0.0 Total Counted 100 Immature Gran % 6.1 Nucleated RBC % 0.0 Immature Gran # 0.42 Segmented Neutrophils 59 Band Neutrophils 1 Lymphocytes 23 Monocytes 12 Eosinophils 5 Nucleated RBCs # 0.00 Platelet Estimate Normal Immature Plt Fraction 0.0 Hypochromasia 1+ Microcytosis Slight Sodium 143 Potassium 4.5 Chloride 105 Carbon Dioxide 29 Anion Gap 13.5 BUN 57 H Creatinine 1.80 H GFR Calculation 25 BUN/Creatinine Ratio 31.00 H Glucose 112 H Calculated Osmolality 301.0 Calcium 9.1 Phosphorus 4.9 Magnesium 2.0 Total Bilirubin 0.90 AST 33 ALT 32 Alkaline Phosphatase 99 B-Natriuretic Peptide 339 H Total Protein 5.7 L Albumin 2.5 L Globulin 3.2 Albumin/Globulin Ratio 0.7 L DS: Provider Date of admission: 07/29/17 15:52 Primary care physician: Mika Mohan Attending physician on admission: Miller Shrestha MD Consults: 07/28/17 18:19 Consult to Physician [CONS] Routine Comment: anemia Consulting Provider: Georges Patiño 07/29/17 12:55 Consult to Physician [CONS] Routine Comment: apparent CHF Consulting Provider: Morris Albert Consult to Specialist Group: Cardiology When should Consulting Provider be notified: Now Person Notified: Julio Cesar Date Notified: 07/29/17 Time Notified: 13:21 07/29/17 12:58 Consult to Physician [CONS] Routine Comment: SOB Consulting Provider: Brian Carmichael Person Notified: MD villanueva Date Notified: 07/29/17 07/30/17 08:24 Consult to Pharmacy [CONS] Routine Reason for Pharmacy Consult: Other Comment: Need dose for Lovenox 1mg/kg dosing for bid 07/31/17 10:39 Consult to Physical Therapy [CONS] Routine Reason for Physical Therapy: Evaluate and Treat 07/31/17 16:28 Consult to Case Mgmt/Social Srvs [CONS] Routine Reason for Case Mgmt/Social Srvs: Rehab Other Consult to Occupational Therapy [CONS] Routine Reason for Occupational Therapy: Evaluate and Treat 08/01/17 08:18 Consult to Case Mgmt/Social Srvs [CONS] Routine Reason for Case Mgmt/Social Srvs: Rehab Other Discharging clinician: Evelyne Jacobs CNP <Masoud Diaz - Last Filed: 08/05/17 14:26> Discharge Plan - Discharge Data Condition at Discharge: Stable Discharge Diet: heart healthy, low salt diet Activity: as per physical therapy Hygiene: no restrictions - Forms/Instructions Additional Discharge Instructions: Will need weekly CMP to follow-up on her renal function. Pulmonology follow-up. Cardiology follow-up. PCP follow-up in 2-3 weeks
[2017-08-04] MEDS ORDERED: METOPROLOL TARTRATE 5 MG/5 ML VIAL IV ONE (10:36)
--- NOTE | 2017-08-04 14:25 | EKG Report ---
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
--- NOTE | 2017-08-04 14:43 | Event Note ---
Cardiology was reconsulted for atrial fibrillation with rapid ventricular response this afternoon. It was noted that the patient had a brief episode of atrial fibrillation at approximately 160-180 bpm. She was asymptomatic. Again this was brief, nonsustained atrial fibrillation. She is scheduled for discharge this afternoon with transfer to [facility] bed facility in [place], [place]. Dr. Ayala has added metoprolol tartrate 25 mg orally twice daily. She should be discharged to SNF on both Metoprolol Tartrate 25 mg 1 p.o. twice daily, Diltiazem CD 180 mg orally daily as well. From a cardiology standpoint, she is stable for discharge peer
--- NOTE | 2017-08-04 14:56 | Event Note ---
Patient who had been planned for discharge today, developed an episode of atrial fibrillation with rapid ventricular response. She was asymptomatic, we treated with IV Lopressor with good response. Cardiology was asked to evaluate , they did evaluate her and adjusted rate control medication. She was started on twice daily Toprol for rate control and was cleared for discharge. Rehab facility however have declined taking her today but will accept her on Monday. Plan: Cancel her discharge Continue Toprol and monitor her heart rate.
[2017-08-04] MEDS ORDERED: DILTIAZEM 60 MG TABLET PO SCH (15:00)
[2017-08-04] MEDS: METOPROLOL TARTRATE 25 MG TABLET PO SCH (21:18)
[2017-08-05] MEDS: ALBUTEROL/IPRATROPIUM 3 ML NEB RESP TX SCH ×4 (01:04→19:37)
[2017-08-05] MEDS: LEVOTHYROXINE 75 MCG TABLET PO SCH (06:31)
[2017-08-05] MEDS: DILTIAZEM CD 180 MG CAPSULE PO SCH ×2 (07:37→08:15)
[2017-08-05] MEDS: LEVOFLOXACIN 250 MG TABLET PO SCH ×2 (07:38→08:16)
[2017-08-05] MEDS: BISACODYL 5 MG TABLET PO SCH ×2 (07:38→08:15)
[2017-08-05] MEDS: ASPIRIN EC 81 MG TABLET PO SCH ×2 (07:38→08:15)
[2017-08-05] MEDS: PREGABALIN 75 MG CAPSULE PO SCH ×2 (07:38→08:16)
[2017-08-05] MEDS: PANTOPRAZOLE 40 MG TABLET PO SCH ×3 (07:38→20:50)
[2017-08-05] MEDS: METOPROLOL TARTRATE 25 MG TABLET PO SCH ×3 (07:39→20:50)
[2017-08-05] MEDS: FUROSEMIDE 40 MG TABLET PO SCH ×2 (07:39→08:15)
--- NOTE | 2017-08-05 08:59 | EKG Report ---
Stationary ECG Study [facility] Test Date: 08/05/2017 9:00:45 AM Pat Name: SARINA SANDOVAL Department: Room: 532 Gender: F Siderographer: : 1930 Requested by: Claribel Huynh Order Number: [id number] Reading MD: SIMONE SUH Intervals [place] Rate: 99 P: 999 NC: 0 QRS: 43 QRSD: 94 T: 17 QT: 362 QTc: 418 Interpretive Statements ATRIAL FIBRILLATION ABNORMAL RHYTHM ECG Electronically Signed On 08-10-17 10:43:32 CDT by SIMONE SUH [email or web address]
--- NOTE | 2017-08-05 09:20 | Hospitalist Progress Note ---
Assessment and Plan - Time spent with patient Time spent with patient: Greater than 30 minutes (1) Sepsis Status: Acute Assessment and plan: Continue heart rate control medication, continue telemetry monitoring. Keep antibiotic until ready for discharge on Monday. Physical and Occupational Therapy Continue other supportive care For discharge on Monday to rehab facility. Current Visit: No (2) Anemia Status: Acute Current Visit: Yes (3) Congestive heart failure Status: Chronic Current Visit: Yes (4) Atrial fibrillation Status: Acute Current Visit: Yes Qualifiers: Atrial fibrillation type: persistent Qualified Code(s): I48.1 - Persistent atrial fibrillation (5) Pulmonary hypertension Status: Chronic Current Visit: Yes Hospitalist: Subjective Interval history: Her heart rate has remained stable since that initial episode of RVR. She is hemodynamically stable. No symptom. Now awaiting discharge to rehab, likely to happen on Monday. Exam - Constitutional Vitals: Period Temp Pulse Resp BP Sys/Woodall Pulse Ox Last 24 Hr 97.0 F-97.9 F 59-89 18-20 101-124/47-80 93-100 Exam: General appearance: normal weight, no acute distress - Head Head exam: Present: normal inspection, normocephalic, atraumatic - Eye Eye exam: Present: EOMI. Absent: conjunctival injection Pupils: Present: ARGENIS - ENT ENT exam: Present: normal exam, normal external ear exam, normal oropharynx - Neck Neck exam: Present: normal inspection. Absent: lymphadenopathy, meningismus, tenderness, thyromegaly - Respiratory Respiratory exam: Present: clear to auscultation bilaterally. Absent: rales, rhonchi, stridor, wheezes - Cardiovascular Cardiovascular exam: Present: regular rate and rhythm. Absent: carotid bruit, diastolic murmur, gallop, JVD, rubs, systolic murmur - GI/Abdominal GI/Abdominal exam: Present: normal bowel sounds, soft - Extremities Exam Extremities exam: Present: normal inspection, normal capillary refill, full ROM. Absent: edema - Back Exam Back exam: Present: normal inspection - Neurological Exam Neurological exam: Present: alert, oriented X3, CN II-XII intact - Psychiatric Psychiatric exam: Present: normal affect, normal mood - Skin Skin exam: Present: normal color, warm, dry Results - Labs CBC & BMP: 08/04/17 06:02 08/04/17 06:02 Lab Results: I have reviewed the past 24 hour labs Specialty Discharge - Follow Up or Referrals
--- NOTE | 2017-08-05 13:22 | Pulmonology Progress Note ---
Pulmonary - PN: Subj Interval history: Patient is an 87-year-old lady that has had some mild heart failure and is doing better now. She has diuresed fairly well and is breathing better. She is not having any respiratory distress now. She is probably going to a swing bed next week. Exam (Progress Note) - Constitutional Vitals: Period Temp Pulse Resp BP Sys/Woodall Pulse Ox Last 24 Hr 97.0 F-98.2 F 59-89 18-20 101-124/47-80 93-100 General appearance: normal weight, no acute distress - Head Head exam: Present: normal inspection, normocephalic - Eye Eye exam: Present: EOMI. Absent: scleral icterus Pupils: Present: ARGENIS - ENT ENT exam: Present: normal exam - Neck Neck exam: Absent: lymphadenopathy, thyromegaly - Respiratory Respiratory exam: Present: rales (She has some mild crackles in the bases). Absent: accessory muscle use - Cardiovascular Cardiovascular exam: Present: irregular rhythm, systolic murmur. Absent: gallop - GI/Abdominal GI/Abdominal exam: Present: normal bowel sounds, soft. Absent: organomegaly, tenderness - Extremities Exam Extremities exam: Absent: calf tenderness, edema - Neurological Exam Neurological exam: Present: alert - Psychiatric Psychiatric exam: Absent: anxious - Skin Skin exam: Present: warm, dry Results - Labs CBC & BMP: 08/04/17 06:02 08/04/17 06:02 - Diagnostic Findings Procedure: Chest x-ray: image reviewed by me, report reviewed by me (Chest x- ray showed cardiomegaly but no infiltrates .) Assessment and Plan (1) Congestive heart failure Status: Chronic Assessment and plan: Patient's congestive heart failure has improved and she is stable. Current Visit: Yes (2) Renal insufficiency Status: Acute Assessment and plan: Creatinine is 1.8 and stable. Current Visit: Yes (3) Chronic anemia Status: Chronic Assessment and plan: The patient has an hematocrit of 35 now. Current Visit: Yes (4) Atrial fibrillation Status: Acute Assessment and plan: Patient has chronic atrial fibrillation but this is stable at present. Current Visit: Yes Qualifiers: Atrial fibrillation type: persistent Qualified Code(s): I48.1 - Persistent atrial fibrillation Specialty Discharge - Follow Up or Referrals
[2017-08-06] MEDS: ALBUTEROL/IPRATROPIUM 3 ML NEB RESP TX SCH ×4 (00:45→19:41)
[2017-08-06] MEDS: LEVOTHYROXINE 75 MCG TABLET PO SCH (07:09)
[2017-08-06] MEDS: DILTIAZEM CD 180 MG CAPSULE PO SCH (08:41)
[2017-08-06] MEDS: BISACODYL 5 MG TABLET PO SCH ×2 (08:41→08:44)
[2017-08-06] MEDS: FUROSEMIDE 40 MG TABLET PO SCH (08:41)
[2017-08-06] MEDS: PANTOPRAZOLE 40 MG TABLET PO SCH ×2 (08:41→20:53)
[2017-08-06] MEDS: ASPIRIN EC 81 MG TABLET PO SCH (08:41)
[2017-08-06] MEDS: METOPROLOL TARTRATE 25 MG TABLET PO SCH ×2 (08:42→20:53)
--- NOTE | 2017-08-06 09:33 | Hospitalist Progress Note ---
<Evelyne Jacobs - Last Filed: 08/06/17 09:31> Assessment and Plan (1) Chronic anemia Status: Chronic Assessment and plan: Hemoglobin/hematocrit noted at 8.3/25.4. Noted improvement from 7.8 and 24.3 at the time of admission. Will recheck CBC in AM. 08/01-hemoglobin hematocrit remained stable at 8.1/24.4. We will recheck CBC in a.m. 08/03-patient was transfused 2 units of PRBCs on yesterday. Hemoglobin and hematocrit improved to 11.4/33.7. No overt signs and symptoms of bleeding noted. Will recheck CBC in a.m. Current Visit: Yes (2) Congestive heart failure Status: Chronic Assessment and plan: Chest x-ray mildly improved. A mild degree of cardiomegaly remains. In addition, there is a component of bilateral pulmonary interstitial prominence and small left pleural effusion noted. We will gently diurese and recheck chest x-ray in a.m. 08/01-noted increase in BUN and creatinine; BUN and creatinine noted at 54/2.00. We will hold Lasix today and gently rehydrate. We will monitor closely for signs of volume overload and recheck chest x-ray in a.m. 08/02-chest x-ray moderately improved. BUN and creatinine noted at 51/1.7. We will continue to hold Lasix today. We have discontinued rehydration. We will monitor for signs of fluid overload and recheck chest x-ray in a.m. 08/03-we will continue calcium channel eve for rate control and avoid VINCENZO inhibitor per cardiology recommendation. 08/06-discharge placed on hold Monday due to issues with rate control. The patient was reevaluated by cardiology and recommendations were given. No further episodes of increased heart rate reported. We will continue current regimen as ordered. Discharge pending in a.m. to [facility] in [facility]. Current Visit: Yes Hospitalist: Subjective Interval history: Patient seen and examined; chart reviewed. No significant overnight events reported per staff. Discharge to swing bed was placed on hold on Monday due to rate control issues; no further episodes reported. Discharge pending in a.m. to [facility] in [place], [place]. Exam - Constitutional Vitals: Period Temp Pulse Resp BP Sys/Woodall Pulse Ox Last 24 Hr 97 F-98.4 F 78-105 14-20 101-131/48-68 92-99 General appearance: normal weight, no acute distress - Head Head exam: Present: normal inspection, normocephalic - Eye Eye exam: Present: EOMI. Absent: conjunctival injection Pupils: Present: ARGENIS, normal accommodation - ENT ENT exam: Present: normal exam, normal external ear exam, normal oropharynx - Neck Neck exam: Present: normal inspection. Absent: lymphadenopathy, meningismus, thyromegaly - Respiratory Respiratory exam: Present: clear to auscultation bilaterally. Absent: rales, rhonchi, stridor, wheezes - Cardiovascular Cardiovascular exam: Present: irregular rhythm (Atrial fibrillation; rate controlled) - GI/Abdominal GI/Abdominal exam: Present: normal bowel sounds, soft - Extremities Exam Extremities exam: Present: normal inspection, normal capillary refill, full ROM. Absent: edema - Back Exam Back exam: Present: normal inspection - Neurological Exam Neurological exam: Present: alert, oriented X3, altered - Psychiatric Psychiatric exam: Present: normal affect, normal mood - Skin Skin exam: Present: normal color, warm, dry Results - Labs CBC & BMP: 08/04/17 06:02 08/04/17 06:02 Lab Results: I have reviewed the past 24 hour labs Specialty Discharge - Follow Up or Referrals <Masoud Diaz - Last Filed: 08/06/17 12:26> Exam - Constitutional Vitals: Period Temp Pulse Resp BP Sys/Woodall Pulse Ox Last 24 Hr 97 F-98.4 F 78-105 14-20 101-131/48-73 92-99 Results - Labs CBC & BMP: 08/04/17 06:02 08/04/17 06:02
--- NOTE | 2017-08-06 11:41 | Pulmonology Progress Note ---
Pulmonary - PN: Subj Interval history: Patient is an 87-year-old lady that has had some mild heart failure and is doing better now. She has diuresed fairly well and is breathing better. She is not having any respiratory distress now. She was having trouble with her heart rate but this is doing better. She has controlled atrial fibrillation now. She says she is trying to do without oxygen and feels okay. She feels like her breathing is better. Exam (Progress Note) - Constitutional Vitals: Period Temp Pulse Resp BP Sys/Woodall Pulse Ox Last 24 Hr 97 F-98.4 F 78-105 14-20 101-131/48-68 92-99 Exam: General appearance: normal weight, no acute distress, she is sitting up in a chair and looks comfortable. - Head Head exam: Present: normal inspection, normocephalic - Eye Eye exam: Present: EOMI. Absent: scleral icterus Pupils: Present: ARGENIS - ENT ENT exam: Present: normal exam - Neck Neck exam: Absent: lymphadenopathy, thyromegaly - Respiratory Respiratory exam: Present: She has fairly good breath sounds bilaterally without any wheezing. She has some minimal crackles in the bases. - Cardiovascular Cardiovascular exam: Present: irregular rhythm, systolic murmur. Her heart rate is under control. Absent: gallop - GI/Abdominal GI/Abdominal exam: Present: normal bowel sounds, soft. Absent: organomegaly, tenderness - Extremities Exam Extremities exam: Absent: calf tenderness, edema, she has no signs of phlebitis. - Neurological Exam Neurological exam: Present: alert, she is moving everything okay. - Psychiatric Psychiatric exam: Absent: anxious - Skin Skin exam: Present: warm, dry Results - Labs CBC & BMP: 08/04/17 06:02 08/04/17 06:02 Assessment and Plan (1) Congestive heart failure Status: Chronic Assessment and plan: Patient's congestive heart failure has improved and she is stable. She is comfortable off of oxygen and is not short of breath. Current Visit: Yes (2) Renal insufficiency Status: Acute Assessment and plan: Creatinine is 1.8 and stable. Current Visit: Yes (3) Chronic anemia Status: Chronic Assessment and plan: The patient has an hematocrit of 35 now. Current Visit: Yes (4) Atrial fibrillation Status: Acute Assessment and plan: Patient has chronic atrial fibrillation but this is stable at present. Heart rate and blood pressure are doing better. Current Visit: Yes Qualifiers: Atrial fibrillation type: persistent Qualified Code(s): I48.1 - Persistent atrial fibrillation Specialty Discharge - Follow Up or Referrals
[2017-08-07] MEDS: ALBUTEROL/IPRATROPIUM 3 ML NEB RESP TX SCH ×2 (00:18→07:32)
[2017-08-07] MEDS: LEVOTHYROXINE 75 MCG TABLET PO SCH (06:49)
[2017-08-07] MEDS: PANTOPRAZOLE 40 MG TABLET PO SCH (08:23)
[2017-08-07] MEDS: ASPIRIN EC 81 MG TABLET PO SCH (08:23)
[2017-08-07] MEDS: BISACODYL 5 MG TABLET PO SCH (08:23)
[2017-08-07] MEDS: DILTIAZEM CD 180 MG CAPSULE PO SCH (08:23)
[2017-08-07] MEDS: FUROSEMIDE 40 MG TABLET PO SCH (08:24)
[2017-08-07] MEDS: METOPROLOL TARTRATE 25 MG TABLET PO SCH (08:24)
--- NOTE | 2017-08-07 08:31 | Pulmonology Progress Note ---
Pulmonary - PN: Subj Interval history: I was asked to see patient yesterday because of acute dyspnea. It was apparent that she had congestive heart failure and was ahead on fluids. She has a normal LV ejection fraction but does have some LVH and has both MR and AR. She has diuresed over 4 L and she is feeling better. Still has a pretty high oxygen requirement. Hopefully we can wean her down the nasal oxygen today. 07/31/2017 patient still having some dyspnea. She started to cough up some phlegm. She has been placed on antibiotics and bronchodilators. Weight has not dropped although she has had a good response to diuretics. Will add Zaroxolyn. Chest x-ray pending. Continue empiric antibiotics and bronchodilators. 08/02/2017 patient is feeling better. Seems to be eating and drinking well. We can stop the IV fluids again. 08/03/2017 patient got 2 units of blood yesterday and some Lasix in between. Her weight is actually down a little bit. She still has basilar crackles and is generally weak. I am going to put her on low-dose oral Lasix. 08/04/2017 patient is feeling better. Slept well. Not dyspneic. Check room air O2 sats. From my standpoint she could be moved to a swing bed. Does need to have her chemistries followed. 08/07/2017 O2 sat 97% on room air. Patient sitting up and comfortable. Ready for discharge. I will sign off. Call if needed more. Exam (Progress Note) - Constitutional Vitals: Period Temp Pulse Resp BP Sys/Woodall Pulse Ox Last 24 Hr 97.8 F-98.5 F 67-114 15-22 108-137/48-73 93-99 Exam: Patient is alert oriented on room air with O2 sat 97%. Pupils react to light. Neck is supple. Chest sounds clear. Heart irregular with grade 1/6 systolic murmur at left sternal border. Abdomen soft nontender no masses. Bowel sounds present. Extremities no clubbing cyanosis or edema. Calves nontender. Results - Labs CBC & BMP: 08/04/17 06:02 08/04/17 06:02 Lab Results: I have reviewed the past 24 hour labs Assessment and Plan (1) Congestive heart failure Status: Chronic Assessment and plan: Clinically she is in heart failure with bibasilar rales wheezing and radiographically. Not sure why. Will check cardiac isoenzymes, BNP and echo. Ask cardiology to see her. She has no history of chronic lung disease or asthma. 07/30/2017 this is due to diastolic dysfunction and valvular disease. See echo report. She is better with diuresis. Continue same 07/31/2017 appears to need a lot of further diuresis. 08/02/2017 needs further diuresis 08/03/2017 still has some basilar crackles. Will put her on low-dose oral Lasix. Recheck BNP 08/04/2017 this seems to be under control. Should be ready for transfer to swing bed. Her BNP is down from the 700s to the 300s. 08/07/2017 this seems to be controlled. No rales. Current Visit: Yes (2) Anemia Status: Acute Assessment and plan: A chronic anemia may be aggravating her congestive failure. 07/31/2017 hematocrit was 25 yesterday. 08/02/2017 following hemoglobins. 08/03/2017 hematocrit 33 posttransfusion. Current Visit: Yes (3) Renal insufficiency Status: Acute Assessment and plan: Her creatinine is only slightly higher than it was 2 years ago at 1.8 compared to 1.4. 07/30/2017 creatinine is actually dropped to 1.5 despite the vigorous diuresis. This is a good sign 07/31/2017 has had good urine output. 08/02/2017 creatinine is down to 1.8 today. 08/03/2017 creatinine down to 1.6. 08/04/2017 creatinine 1.8. Does need follow-up on her renal function and electrolytes with diuretics going forward. 08/07/2017 needs her renal function and potassium followed post discharge. Current Visit: Yes Specialty Discharge - Follow Up or Referrals
[2017-08-07 08:54] VITALS: BP 128/81
--- NOTE | 2017-08-14 07:24 | Physician Query Form ---
CLICK EDIT DOCUMENT TO SELECT QUERY ANSWER --> OK --> SIGN Sofia Silva RN, CCDS Certified Clinical Grit Removal Operator W) [phone] (f) [phone] [email or web address]: Make your selection(s) from the choices in EACH section by typing an "x" and enter comments in the comment section. Please use your independent medical judgment in providing your response. This request does not imply that any particular answer is desired or expected. CLINICAL INDICATORS: (Providers should not edit this section) The below diagnosis was documented in the record, but is not consistently noted in subsequent documentation. The medical record indicates that the patient was admitted with CHF, WBC of 12.9 on the , patient would later develop respiratory failure, only 4% bands , Lactic Acid was 1.2#, on the 101.2 Temp, on the Sepsis is mentioned , and the patient was begin treated for AF. Placed on Azithromycin on the : Diagnosis: SEPSIS Please clarify the following: ( ) The above diagnosis was monitored, evaluated, and/or treated and is a confirmed diagnosis ( x) The above diagnosis was ruled out ( ) The above diagnosis is still a likely, suspected, probable diagnosis ( ) Other, please specify: ( ) Clinically unable to determine IF CONFIRMATION IS MADE: ( ) Not Present of Admission ( ) Present on Admission COMMENTS: PLEASE ALSO DOCUMENT RESPONSE IN PROGRESS NOTES AND/OR DISCHARGE SUMMARY Use of terms such as suspected, likely, or probable (associated with a specific diagnosis that is being evaluated, monitored, or treated as if it exists) are acceptable and can be restated in the discharge summary if not ruled out. MTDD
--- NOTE | 2017-08-14 07:26 | Physician Query Form ---
CLICK EDIT DOCUMENT TO SELECT QUERY ANSWER --> OK --> SIGN Sofia Silva RN, CCDS Certified Clinical Scalp Treatment Specialist W) [phone] (f) [phone] [email or web address] PROVIDERS: Make your selection(s) from the choices in EACH section by typing an "x" and enter comments in the comment section. Please use your independent medical judgment in providing your response. This request does not imply that any particular answer is desired or expected. CLINICAL INDICATORS: (Providers should not edit this section) The below diagnosis was documented in the record, but is not consistently noted in subsequent documentation. The medical record indicates that the patient was admitted with CHF, WBC of 12.9 on the 15th, patient would later develop respiratory failure, and pneumonia is placed in the discharge summary. As the attending MD can you please clarify if the pneumonia was ? Placed on Azithromycin on the 15th: Diagnosis: PNEUMONIA Please clarify the following: ( ) The above diagnosis was monitored, evaluated, and/or treated and is a confirmed diagnosis ( ) The above diagnosis was ruled out ( ) The above diagnosis is still a likely, suspected, probable diagnosis ( ) Other, please specify: ( ) Clinically unable to determine IF CONFIRMATION IS MADE: ( ) Present on Admission ( ) Not Present on Admission COMMENTS: PLEASE ALSO DOCUMENT RESPONSE IN PROGRESS NOTES AND/OR DISCHARGE SUMMARY Use of terms such as suspected, likely, or probable (associated with a specific diagnosis that is being evaluated, monitored, or treated as if it exists) are acceptable and can be restated in the discharge summary if not ruled out. MTDD
--- NOTE | 2017-08-15 12:54 | Physician Query Form ---
CLICK EDIT DOCUMENT TO SELECT QUERY ANSWER --> OK --> SIGN Sofia Silva RN, CCDS Certified Clinical Iphone Developer W) [phone] (f) [phone] [email or web address]: Make your selection(s) from the choices in EACH section by typing an "x" and enter comments in the comment section. Please use your independent medical judgment in providing your response. This request does not imply that any particular answer is desired or expected. CLINICAL INDICATORS: (Providers should not edit this section) The below diagnosis was documented in the record, but is not consistently noted in subsequent documentation. The medical record indicates that the patient was admitted with CHF, WBC of 12.9 on the 15th, patient would later develop respiratory failure, and pneumonia is placed in the discharge summary. As the attending MD can you please clarify if the pneumonia was ? Placed on Azithromycin on the 15th: Diagnosis: Pneumonia Please clarify the following: ( x) The above diagnosis was monitored, evaluated, and/or treated and is a confirmed diagnosis ( ) The above diagnosis was ruled out ( ) The above diagnosis is still a likely, suspected, probable diagnosis ( ) Other, please specify: ( ) Clinically unable to determine COMMENTS: PLEASE ALSO DOCUMENT RESPONSE IN PROGRESS NOTES AND/OR DISCHARGE SUMMARY Use of terms such as suspected, likely, or probable (associated with a specific diagnosis that is being evaluated, monitored, or treated as if it exists) are acceptable and can be restated in the discharge summary if not ruled out. MTDD
== END 2017-08-07 11:00 | disposition swing bed (61) | DRG 291 ==
LOC: N.ED 12:05 → N.EDINP 12:05 → SUATTDRO 16:59 → N.5E 17:36 → SUATTDRO 07-29 15:52
PROVIDERS: ADMIT Internal Medicine; ATTEND Internal Medicine

== ENCOUNTER 2018-01-17 14:53 | Inpatient (IN) ==
[2018-01-17 16:27] LABS: Basophils % 0.1 % (0.0-0.8); Hemoglobin 13.5 GM/DL (12.0-16.0); Immature Granulocytes % 0.8 %; Immature Granulocytes Absolute 0.07 #; Lymphocytes # 1.1 10*3/uL (1.4-4.0); Lymphocytes % 11.4 % (21.3-54.2); Mean Corpuscular HGB Conc 32.9 GM/DL (32-36); Mean Corpuscular Hemoglobin 29 PG (27-34); Mean Corpuscular Volume 88.6 FL (87-102); Monocytes # 0.5 10*3/uL (0.11-0.8); Monocytes % 5.5 % (1.7-12.7); Neutrophils # 7.7 10*3/uL (1.4-7.4); Neutrophils % 82.2 % (38.7-73.9); Platelet Count 247 T/CUMM (130-400); Red Blood Count 4.63 MC/CUMM (3.8-5.5); Red Cell Distribution Width 14.6 % (9.3-17.3); White Blood Count 9.3 T/CUMM (4-12)
[2018-01-17 17:08] LABS: Alanine Aminotransferase 18 U/L (13-56); Albumin 4.6 G/DL (3.4-5.0); Alkaline Phosphatase 117 U/L (45-117); Aspartate Amino Transferase 19 U/L (0-37); Blood Urea Nitrogen 48 MG/DL (7-18); Calcium 9.2 MG/DL (8.5-10.1); Glucose 116 MG/DL (74-106); Osmolality,Calculated 296.1 MOS/KG (273-304); Potassium 3.7 MMOL/L (3.5-5.1); Sodium 142 MMOL/L (136-145); Total Protein 9.1 G/DL (6.4-8.3); Troponin I Only < 0.015 NG/ML (0.00-0.045)
[2018-01-17] MEDS ORDERED: hydrALAZINE 20 MG/1 ML VIAL IV STA (17:40)
[2018-01-17 17:55] LABS: INR 0.9; PT Patient Result 9.9 SECS; Partial Thromboplastin Time 26.9 SECS (0-40)
[2018-01-17] MEDS ORDERED: POTASSIUM CHLORIDE 20 MEQ TABLET PO PRN (19:49)
[2018-01-17] MEDS ORDERED: ACETAMINOPHEN 325 MG TABLET PO PRN (19:49)
[2018-01-17] MEDS ORDERED: ONDANSETRON 4 MG/2 ML VIAL IV PRN (19:49)
[2018-01-17] MEDS ORDERED: cloNIDine 0.1 MG TABLET PO PRN (19:59)
[2018-01-17] MEDS ORDERED: hydrALAZINE 20 MG/1 ML VIAL ONE (20:29)
[2018-01-17] MEDS: hydrALAZINE 25 MG TABLET PO SCH (22:39)
[2018-01-17] MEDS: CARVEDILOL 6.25 MG TABLET PO SCH (22:54)
[2018-01-17] MEDS: ASPIRIN EC 81 MG TABLET PO SCH (22:54)
[2018-01-17] MEDS: ENOXAPARIN 30 MG/0.3 ML SYRINGE SUBCUT SCH (22:55)
[2018-01-18 06:10] LABS: Eosinophils % 0.1 % (0.00-10.9); Hematocrit 35.8 VOL% (35.7-47.0); Hemoglobin 11.5 GM/DL (12.0-16.0); Immature Granulocytes % 0.4 %; Immature Granulocytes Absolute 0.03 #; Lymphocytes # 1.2 10*3/uL (1.4-4.0); Mean Corpuscular HGB Conc 32.1 GM/DL (32-36); Mean Corpuscular Hemoglobin 29 PG (27-34); Mean Corpuscular Volume 89.5 FL (87-102); Monocytes # 0.5 10*3/uL (0.11-0.8); Neutrophils % 73.5 % (38.7-73.9); Platelet Count 211 T/CUMM (130-400); Red Cell Distribution Width 14.6 % (9.3-17.3); White Blood Count 6.8 T/CUMM (4-12)
[2018-01-18] MEDS: LEVOTHYROXINE 75 MCG TABLET PO SCH (06:43)
[2018-01-18 06:47] LABS: Alanine Aminotransferase 13 U/L (13-56); Albumin 3.2 G/DL (3.4-5.0); Alkaline Phosphatase 80 U/L (45-117); Aspartate Amino Transferase 17 U/L (0-37); Bilirubin,Total < 0.39 MG/DL (0.2-1.0); Blood Urea Nitrogen 44 MG/DL (7-18); Calcium 8.2 MG/DL (8.5-10.1); Glucose 116 MG/DL (74-106); Osmolality,Calculated 301.6 MOS/KG (273-304); Potassium 3.9 MMOL/L (3.5-5.1); Sodium 146 MMOL/L (136-145); Total Protein 6.2 G/DL (6.4-8.3)
[2018-01-18] MEDS: MULTIVITAMIN (CENTRUM) TABLET PO SCH (09:17)
[2018-01-18] MEDS: DILTIAZEM CD 180 MG CAPSULE PO SCH (09:17)
[2018-01-18] MEDS: PANTOPRAZOLE 40 MG TABLET PO SCH (09:17)
[2018-01-18] MEDS: CARVEDILOL 6.25 MG TABLET PO SCH ×2 (09:17→21:14)
[2018-01-18] MEDS: hydrALAZINE 25 MG TABLET PO SCH ×3 (09:17→21:14)
[2018-01-18] MEDS: OLMESARTAN 20 MG TABLET PO SCH (09:17)
[2018-01-18] MEDS: PREGABALIN 75 MG CAPSULE PO SCH (09:18)
[2018-01-18] MEDS: FUROSEMIDE 20 MG/2 ML VIAL IV SCH ×2 (09:47→17:02)
[2018-01-18] MEDS: ASPIRIN EC 81 MG TABLET PO SCH (21:14)
[2018-01-18] MEDS: ENOXAPARIN 30 MG/0.3 ML SYRINGE SUBCUT SCH (21:14)
[2018-01-19 05:57] LABS: Basophils % 0.3 % (0.0-0.8); Eosinophils # 0.1 10*3/uL (0.0-0.87); Eosinophils % 1.6 % (0.00-10.9); Hematocrit 35.7 VOL% (35.7-47.0); Hemoglobin 11.8 GM/DL (12.0-16.0); Immature Granulocytes % 0.6 %; Immature Granulocytes Absolute 0.04 #; Lymphocytes # 1.9 10*3/uL (1.4-4.0); Lymphocytes % 27.5 % (21.3-54.2); Mean Corpuscular HGB Conc 33.1 GM/DL (32-36); Mean Corpuscular Hemoglobin 29 PG (27-34); Mean Corpuscular Volume 88.1 FL (87-102); Mean Platelet Volume 10.9 FL (9.6-12.0); Monocytes # 0.8 10*3/uL (0.11-0.8); Monocytes % 12.3 % (1.7-12.7); Neutrophils # 3.9 10*3/uL (1.4-7.4); Neutrophils % 57.7 % (38.7-73.9); Platelet Count 211 T/CUMM (130-400); Red Blood Count 4.05 MC/CUMM (3.8-5.5); Red Cell Distribution Width 14.8 % (9.3-17.3); White Blood Count 6.8 T/CUMM (4-12)
[2018-01-19] MEDS: LEVOTHYROXINE 75 MCG TABLET PO SCH (06:01)
[2018-01-19 06:32] LABS: Calcium 8.2 MG/DL (8.5-10.1); Osmolality,Calculated 302.8 MOS/KG (273-304)
[2018-01-19] MEDS: DILTIAZEM CD 180 MG CAPSULE PO SCH (09:52)
[2018-01-19] MEDS: PREGABALIN 75 MG CAPSULE PO SCH (09:53)
[2018-01-19] MEDS: OLMESARTAN 20 MG TABLET PO SCH (09:53)
[2018-01-19] MEDS: PANTOPRAZOLE 40 MG TABLET PO SCH (09:54)
[2018-01-19] MEDS: MULTIVITAMIN (CENTRUM) TABLET PO SCH (09:54)
[2018-01-19] MEDS: CARVEDILOL 6.25 MG TABLET PO SCH (09:54)
[2018-01-19] MEDS: hydrALAZINE 25 MG TABLET PO SCH ×3 (09:54→22:14)
[2018-01-19] MEDS: FUROSEMIDE 20 MG/2 ML VIAL IV SCH ×2 (09:55→18:02)
[2018-01-19] MEDS ORDERED: DILTIAZEM CD 240 MG CAPSULE PO SCH (16:45)
[2018-01-19] MEDS: ASPIRIN EC 81 MG TABLET PO SCH (22:14)
[2018-01-19] MEDS: ENOXAPARIN 30 MG/0.3 ML SYRINGE SUBCUT SCH (22:14)
[2018-01-20] MEDS: LEVOTHYROXINE 75 MCG TABLET PO SCH (07:05)
[2018-01-20] MEDS: PREGABALIN 75 MG CAPSULE PO SCH (09:34)
[2018-01-20] MEDS: PANTOPRAZOLE 40 MG TABLET PO SCH (09:34)
[2018-01-20] MEDS: MULTIVITAMIN (CENTRUM) TABLET PO SCH (09:35)
[2018-01-20] MEDS: hydrALAZINE 25 MG TABLET PO SCH (09:36)
[2018-01-20] MEDS: FUROSEMIDE 20 MG/2 ML VIAL IV SCH (09:37)
[2018-01-20 11:52] VITALS: BP 155/71
[2018-01-20] MEDS: CARVEDILOL 6.25 MG TABLET PO SCH (11:53)
[2018-01-20] MEDS: OLMESARTAN 20 MG TABLET PO SCH (11:53)
== END 2018-01-20 12:01 | disposition home health service (06) | DRG 291 ==
LOC: N.ED 14:53 → SUATTDRO 19:49 → N.EDINP 19:49 → N.TELEN 21:22
PROVIDERS: ADMIT Family Medicine; ATTEND Internal Medicine Infectious Disease

== ENCOUNTER 2018-04-01 14:42 | Inpatient (IN) ==
[2018-04-01 15:49] LABS: Basophils % 0.6 % (0.0-0.8); Eosinophils # 0.2 10*3/uL (0.0-0.87); Eosinophils % 3.1 % (0.00-10.9); Hemoglobin 9.8 GM/DL (12.0-16.0); Immature Granulocytes % 0.5 %; Immature Granulocytes Absolute 0.03 #; Lymphocytes # 0.8 10*3/uL (1.4-4.0); Lymphocytes % 12.7 % (21.3-54.2); Mean Corpuscular HGB Conc 33.8 GM/DL (32-36); Mean Corpuscular Hemoglobin 29 PG (27-34); Mean Corpuscular Volume 86.8 FL (87-102); Mean Platelet Volume 10.7 FL (9.6-12.0); Monocytes # 0.6 10*3/uL (0.11-0.8); Monocytes % 9.7 % (1.7-12.7); Neutrophils # 4.6 10*3/uL (1.4-7.4); Neutrophils % 73.4 % (38.7-73.9); Platelet Count 256 T/CUMM (130-400); Red Blood Count 3.34 MC/CUMM (3.8-5.5); Red Cell Distribution Width 14.6 % (9.3-17.3); White Blood Count 6.2 T/CUMM (4-12)
[2018-04-01] MEDS ORDERED: FUROSEMIDE 40 MG/4 ML VIAL IV STA (16:00)
[2018-04-01 16:01] LABS: Calcium 8.4 MG/DL (8.5-10.1); Osmolality,Calculated 283.1 MOS/KG (273-304); Potassium 4.4 MMOL/L (3.5-5.1)
[2018-04-01 16:03] LABS: PT Patient Result 10.1 SECS; Partial Thromboplastin Time 31.1 SECS (0-40)
[2018-04-01 16:30] LABS: Troponin I Only < 0.015 NG/ML (0.00-0.045)
[2018-04-01 16:33] LABS: Lactic Acid 1.4 MMOL/L (0.4-2.0)
[2018-04-01] MEDS ORDERED: cloNIDine 0.1 MG TABLET PO PRN (18:33)
[2018-04-01] MEDS ORDERED: ALBUTEROL/IPRATROPIUM 3 ML NEB RESP TX PRN (18:53)
[2018-04-01] MEDS: ALBUTEROL/IPRATROPIUM 3 ML NEB RESP TX SCH (19:58)
[2018-04-01] MEDS: DILTIAZEM CD 240 MG CAPSULE PO SCH (20:44)
[2018-04-01] MEDS: ASPIRIN EC 81 MG TABLET PO SCH (20:45)
[2018-04-01] MEDS: ROSUVASTATIN 10 MG TABLET PO SCH (20:45)
[2018-04-01] MEDS: CARVEDILOL 6.25 MG TABLET PO SCH (20:45)
[2018-04-01] MEDS ORDERED: hydrALAZINE 25 MG TABLET PO SCH (21:00)
[2018-04-02] MEDS ORDERED: ZALEPLON 5 MG CAPSULE PO PRN (00:32)
[2018-04-02] MEDS: ALBUTEROL/IPRATROPIUM 3 ML NEB RESP TX SCH ×5 (03:31→23:58)
[2018-04-02 05:13] LABS: Calcium 8.7 MG/DL (8.5-10.1); Osmolality,Calculated 288.4 MOS/KG (273-304); Potassium 3.6 MMOL/L (3.5-5.1)
[2018-04-02] MEDS: LEVOTHYROXINE 75 MCG TABLET PO SCH (06:13)
[2018-04-02] MEDS: MULTIVITAMIN (CENTRUM) TABLET PO SCH ×2 (08:35→08:45)
[2018-04-02] MEDS: CHOLECALCIFEROL 5,000 UNIT TABLET PO SCH (08:35)
[2018-04-02] MEDS: hydroCHLOROthiazide 25 MG TABLET PO SCH (08:35)
[2018-04-02] MEDS: FUROSEMIDE 40 MG/4 ML VIAL IV SCH ×2 (08:35→15:32)
[2018-04-02] MEDS: DILTIAZEM CD 240 MG CAPSULE PO SCH ×2 (08:35→21:18)
[2018-04-02] MEDS: PREGABALIN 75 MG CAPSULE PO SCH (08:35)
[2018-04-02] MEDS: CARVEDILOL 6.25 MG TABLET PO SCH ×2 (08:36→21:19)
[2018-04-02] MEDS: OLMESARTAN 20 MG TABLET PO SCH (08:36)
[2018-04-02] MEDS: ROSUVASTATIN 10 MG TABLET PO SCH (21:18)
[2018-04-02] MEDS: ASPIRIN EC 81 MG TABLET PO SCH (21:18)
[2018-04-03] MEDS: LEVOTHYROXINE 75 MCG TABLET PO SCH (06:00)
[2018-04-03 06:05] LABS: Calcium 9.1 MG/DL (8.5-10.1); Osmolality,Calculated 295.1 MOS/KG (273-304); Potassium 3.4 MMOL/L (3.5-5.1)
[2018-04-03] MEDS: ALBUTEROL/IPRATROPIUM 3 ML NEB RESP TX SCH ×3 (07:20→19:10)
[2018-04-03] MEDS: OLMESARTAN 20 MG TABLET PO SCH (08:47)
[2018-04-03] MEDS: CHOLECALCIFEROL 5,000 UNIT TABLET PO SCH (08:48)
[2018-04-03] MEDS: DILTIAZEM CD 240 MG CAPSULE PO SCH ×2 (08:48→21:09)
[2018-04-03] MEDS: hydroCHLOROthiazide 25 MG TABLET PO SCH (08:48)
[2018-04-03] MEDS: MULTIVITAMIN (CENTRUM) TABLET PO SCH (08:48)
[2018-04-03] MEDS: FUROSEMIDE 40 MG/4 ML VIAL IV SCH (08:49)
[2018-04-03] MEDS: PREGABALIN 75 MG CAPSULE PO SCH (08:52)
[2018-04-03] MEDS: CARVEDILOL 6.25 MG TABLET PO SCH ×2 (08:53→21:09)
[2018-04-03] MEDS ORDERED: POTASSIUM CHLORIDE 20 MEQ TABLET PO PRN (10:07)
[2018-04-03] MEDS: guaiFENesin 200 MG/10 ML UDCUP PO PRN ×2 (10:22→22:38)
[2018-04-03] MEDS: POTASSIUM CHLORIDE 20 MEQ/15 ML UDCUP PER TUBE PRN ×3 (10:23→16:39)
[2018-04-03] MEDS ORDERED: MAGNESIUM HYDROXIDE SUSP 30 ML UDCUP PO PRN (11:01)
[2018-04-03] MEDS ORDERED: MAGNESIUM HYDROXIDE SUSP 30 ML UDCUP PO ONE (11:01)
[2018-04-03] MEDS ORDERED: LEVOFLOXACIN INJ 750 MG in PREMIX 1 EACH IV SCH (11:30)
[2018-04-03] MEDS: DOCUSATE SODIUM 100 MG CAPSULE PO SCH ×2 (13:51→21:08)
[2018-04-03] MEDS ORDERED: MAGNESIUM SULF RIDER 4 GM in PREMIX 1 EACH IV PRN (14:06)
[2018-04-03] MEDS ORDERED: MAGNESIUM SULF RIDER 2 GM in PREMIX 1 EACH IV PRN (14:06)
[2018-04-03] MEDS: FUROSEMIDE 40 MG TABLET PO SCH (16:39)
[2018-04-03] MEDS: ROSUVASTATIN 10 MG TABLET PO SCH (21:07)
[2018-04-03] MEDS: ASPIRIN EC 81 MG TABLET PO SCH (21:08)
[2018-04-04] MEDS: ALBUTEROL/IPRATROPIUM 3 ML NEB RESP TX SCH ×4 (00:50→19:22)
[2018-04-04 05:26] LABS: Calcium 8.5 MG/DL (8.5-10.1); Osmolality,Calculated 292.7 MOS/KG (273-304); Potassium 4.3 MMOL/L (3.5-5.1)
[2018-04-04] MEDS: LEVOTHYROXINE 75 MCG TABLET PO SCH (05:36)
[2018-04-04] MEDS: OLMESARTAN 20 MG TABLET PO SCH (08:38)
[2018-04-04] MEDS: FUROSEMIDE 40 MG TABLET PO SCH (08:38)
[2018-04-04] MEDS: DOCUSATE SODIUM 100 MG CAPSULE PO SCH ×2 (08:38→21:51)
[2018-04-04] MEDS: PREGABALIN 75 MG CAPSULE PO SCH (08:39)
[2018-04-04] MEDS: DILTIAZEM CD 240 MG CAPSULE PO SCH ×2 (08:39→21:47)
[2018-04-04] MEDS: CHOLECALCIFEROL 5,000 UNIT TABLET PO SCH (08:39)
[2018-04-04] MEDS: MULTIVITAMIN (CENTRUM) TABLET PO SCH (08:39)
[2018-04-04] MEDS: CARVEDILOL 6.25 MG TABLET PO SCH (08:39)
[2018-04-04] MEDS: hydroCHLOROthiazide 25 MG TABLET PO SCH (08:39)
[2018-04-04] MEDS: AZITHROMYCIN INJ 500 MG in SODIUM CHLORIDE 0.9% 250 ML IV SCH (14:55)
[2018-04-04] MEDS: ROSUVASTATIN 10 MG TABLET PO SCH (21:47)
[2018-04-04] MEDS: CARVEDILOL 12.5 MG TABLET PO SCH (21:47)
[2018-04-04] MEDS: ASPIRIN EC 81 MG TABLET PO SCH (21:48)
[2018-04-04] MEDS: guaiFENesin 200 MG/10 ML UDCUP PO PRN (21:48)
[2018-04-05] MEDS: ALBUTEROL/IPRATROPIUM 3 ML NEB RESP TX SCH ×4 (00:32→19:30)
[2018-04-05] MEDS: LEVOTHYROXINE 75 MCG TABLET PO SCH (05:54)
[2018-04-05 06:12] LABS: Calcium 8.9 MG/DL (8.5-10.1); Osmolality,Calculated 296.3 MOS/KG (273-304); Potassium 4.5 MMOL/L (3.5-5.1)
[2018-04-05] MEDS: PREGABALIN 75 MG CAPSULE PO SCH (08:47)
[2018-04-05] MEDS: DILTIAZEM CD 240 MG CAPSULE PO SCH ×2 (08:47→22:00)
[2018-04-05] MEDS: CHOLECALCIFEROL 5,000 UNIT TABLET PO SCH (08:47)
[2018-04-05] MEDS: OLMESARTAN 20 MG TABLET PO SCH (08:47)
[2018-04-05] MEDS: hydroCHLOROthiazide 25 MG TABLET PO SCH (08:47)
[2018-04-05] MEDS: CARVEDILOL 12.5 MG TABLET PO SCH ×2 (08:48→22:01)
[2018-04-05] MEDS: DOCUSATE SODIUM 100 MG CAPSULE PO SCH ×2 (08:48→22:01)
[2018-04-05] MEDS: MULTIVITAMIN (CENTRUM) TABLET PO SCH (08:48)
[2018-04-05] MEDS: FUROSEMIDE 40 MG TABLET PO SCH (12:38)
[2018-04-05] MEDS: AZITHROMYCIN INJ 500 MG in SODIUM CHLORIDE 0.9% 250 ML IV SCH (14:27)
[2018-04-05] MEDS: ROSUVASTATIN 10 MG TABLET PO SCH (22:01)
[2018-04-05] MEDS: ASPIRIN EC 81 MG TABLET PO SCH (22:01)
[2018-04-05] MEDS: guaiFENesin 200 MG/10 ML UDCUP PO PRN (22:15)
[2018-04-06] MEDS: ALBUTEROL/IPRATROPIUM 3 ML NEB RESP TX SCH ×2 (00:21→08:16)
[2018-04-06 05:40] LABS: Basophils % 0.5 % (0.0-0.8); Eosinophils # 0.4 10*3/uL (0.0-0.87); Eosinophils % 6.3 % (0.00-10.9); Hematocrit 32.1 VOL% (35.7-47.0); Immature Granulocytes Absolute 0.06 #; Lymphocytes # 1.8 10*3/uL (1.4-4.0); Lymphocytes % 29.7 % (21.3-54.2); Mean Corpuscular HGB Conc 31.2 GM/DL (32-36); Mean Corpuscular Hemoglobin 28 PG (27-34); Mean Corpuscular Volume 89.9 FL (87-102); Mean Platelet Volume 10.1 FL (9.6-12.0); Monocytes # 0.6 10*3/uL (0.11-0.8); Monocytes % 9.3 % (1.7-12.7); Neutrophils # 3.2 10*3/uL (1.4-7.4); Neutrophils % 53.2 % (38.7-73.9); Platelet Count 322 T/CUMM (130-400); Red Blood Count 3.57 MC/CUMM (3.8-5.5); Red Cell Distribution Width 14.5 % (9.3-17.3)
[2018-04-06 06:24] LABS: Calcium 9.1 MG/DL (8.5-10.1); Osmolality,Calculated 296.4 MOS/KG (273-304); Potassium 4.4 MMOL/L (3.5-5.1)
[2018-04-06 06:26] LABS: Calcium 8.8 MG/DL (8.5-10.1); Osmolality,Calculated 298.3 MOS/KG (273-304); Potassium 4.4 MMOL/L (3.5-5.1)
[2018-04-06] MEDS: LEVOTHYROXINE 75 MCG TABLET PO SCH (06:26)
[2018-04-06] MEDS: DOCUSATE SODIUM 100 MG CAPSULE PO SCH (08:45)
[2018-04-06] MEDS: CHOLECALCIFEROL 5,000 UNIT TABLET PO SCH (08:45)
[2018-04-06] MEDS: DILTIAZEM CD 240 MG CAPSULE PO SCH (08:45)
[2018-04-06] MEDS: MULTIVITAMIN (CENTRUM) TABLET PO SCH (08:45)
[2018-04-06] MEDS: hydroCHLOROthiazide 25 MG TABLET PO SCH (08:45)
[2018-04-06] MEDS: FUROSEMIDE 40 MG TABLET PO SCH (08:45)
[2018-04-06] MEDS: CARVEDILOL 12.5 MG TABLET PO SCH (08:45)
[2018-04-06] MEDS: PREGABALIN 75 MG CAPSULE PO SCH (08:45)
[2018-04-06] MEDS: OLMESARTAN 20 MG TABLET PO SCH (08:45)
[2018-04-06] MEDS ORDERED: AZITHROMYCIN 250 MG TABLET PO SCH (11:00)
[2018-04-06 12:29] VITALS: BP 109/51
== END 2018-04-06 14:18 | disposition home health service (06) | DRG 291 ==
LOC: N.ED 14:42 → N.EDINP 16:54 → N.TELEN 17:17
PROVIDERS: ADMIT Internal Medicine Cardiovascular Disease; ATTEND Internal Medicine Cardiovascular Disease

== ENCOUNTER 2018-04-25 04:06 | Inpatient (IN) ==
[2018-04-25] MEDS ORDERED: ONDANSETRON 4 MG/2 ML VIAL IV STA (04:19)
[2018-04-25] MEDS ORDERED: MORPHINE 4 MG/1 ML VIAL IV STA (04:19)
[2018-04-25] MEDS ORDERED: ASPIRIN 325 MG TABLET PO STA (04:19)
[2018-04-25] MEDS ORDERED: ALUM/MAG/SIMETH/LIDO VISC 1:1 30 ML BOTTLE PO STA (04:19)
[2018-04-25] MEDS ORDERED: NITROGLYCERIN 2% OINT 1 INCH/GM PACK TOP STA (04:19)
[2018-04-25 05:16] LABS: Basophils % 0.3 % (0.0-0.8); Eosinophils # 0.5 10*3/uL (0.0-0.87); Eosinophils % 6.9 % (0.00-10.9); Hematocrit 33.7 VOL% (35.7-47.0); Hemoglobin 10.6 GM/DL (12.0-16.0); Immature Granulocytes % 0.7 %; Immature Granulocytes Absolute 0.05 #; Lymphocytes # 1.7 10*3/uL (1.4-4.0); Lymphocytes % 24.9 % (21.3-54.2); Mean Corpuscular HGB Conc 31.5 GM/DL (32-36); Mean Corpuscular Hemoglobin 28 PG (27-34); Mean Corpuscular Volume 90.1 FL (87-102); Mean Platelet Volume 10.7 FL (9.6-12.0); Monocytes # 0.7 10*3/uL (0.11-0.8); Monocytes % 10.3 % (1.7-12.7); Neutrophils # 3.8 10*3/uL (1.4-7.4); Neutrophils % 56.9 % (38.7-73.9); Platelet Count 201 T/CUMM (130-400); Red Blood Count 3.74 MC/CUMM (3.8-5.5); Red Cell Distribution Width 15.4 % (9.3-17.3); White Blood Count 6.7 T/CUMM (4-12)
[2018-04-25 05:49] LABS: Albumin 3.6 G/DL (3.4-5.0); Bilirubin,Total 0.8 MG/DL (0.2-1.0); Calcium 8.4 MG/DL (8.5-10.1); Osmolality,Calculated 298.8 MOS/KG (273-304); Potassium 4.3 MMOL/L (3.5-5.1); Total Protein 7.1 G/DL (6.4-8.3)
[2018-04-25 06:17] LABS: Apearance,Urine CLEAR (Clear); Bilirubin,Urine Negative (Negative); Blood, Urine Negative (Negative); Glucose,Urine (UA) Negative (Negative); Ketones,Urine Negative (Negative); Nitrite,Urine Negative (Negative); Protein,Urine 30 MG/DL; RBC,Urine <1 /HPF (0-4); Urine Color Straw (Yellow); Urine Specific Gravity 1.008 (1.001-1.035); Urine Urobilinogen < 2.0 EU/DL (0.2-1.0)
[2018-04-25 06:27] LABS: INR 0.9
[2018-04-25] MEDS ORDERED: PROMETHAZINE 25 MG/1 ML VIAL IM PRN (07:05)
[2018-04-25] MEDS ORDERED: ACETAMINOPHEN 325 MG TABLET PO PRN (07:05)
[2018-04-25] MEDS ORDERED: cloNIDine 0.1 MG TABLET PO PRN (07:07)
[2018-04-25] MEDS ORDERED: ALBUTEROL/IPRATROPIUM 3 ML NEB RESP TX PRN (07:07)
[2018-04-25] MEDS ORDERED: FUROSEMIDE 20 MG TABLET PO PRN (07:07)
[2018-04-25] MEDS ORDERED: hydrALAZINE 25 MG TABLET PO SCH (09:00)
[2018-04-25] MEDS: SODIUM CHLORIDE 0.9% 1,000 ML IV SCH (09:54)
[2018-04-25] MEDS: ENOXAPARIN 30 MG/0.3 ML SYRINGE SUBCUT SCH (09:54)
[2018-04-25] MEDS: DILTIAZEM CD 120 MG CAPSULE PO SCH (09:54)
[2018-04-25] MEDS: hydroCHLOROthiazide 25 MG TABLET PO SCH (09:56)
[2018-04-25] MEDS: OLMESARTAN 20 MG TABLET PO SCH (10:41)
[2018-04-25] MEDS: MULTIVITAMIN (CENTRUM) TABLET PO SCH (10:42)
[2018-04-25] MEDS: CARVEDILOL 12.5 MG TABLET PO SCH ×2 (10:42→21:19)
[2018-04-25] MEDS: CHOLECALCIFEROL 5,000 UNIT TABLET PO SCH (10:42)
[2018-04-25] MEDS ORDERED: hydrALAZINE 25 MG TABLET PO PRN (11:57)
[2018-04-25] MEDS: PREGABALIN 75 MG CAPSULE PO SCH (14:17)
[2018-04-25] MEDS: ASPIRIN EC 81 MG TABLET PO SCH (21:19)
[2018-04-25] MEDS: ROSUVASTATIN 10 MG TABLET PO SCH (21:20)
[2018-04-26] MEDS: SODIUM CHLORIDE 0.9% 1,000 ML IV SCH ×2 (03:12→16:30)
[2018-04-26 06:09] LABS: Basophils % 0.4 % (0.0-0.8); Eosinophils # 0.3 10*3/uL (0.0-0.87); Eosinophils % 6.4 % (0.00-10.9); Hematocrit 32.2 VOL% (35.7-47.0); Hemoglobin 10.2 GM/DL (12.0-16.0); Immature Granulocytes % 0.4 %; Immature Granulocytes Absolute 0.02 #; Lymphocytes # 1.3 10*3/uL (1.4-4.0); Lymphocytes % 25.5 % (21.3-54.2); Mean Corpuscular HGB Conc 31.7 GM/DL (32-36); Mean Corpuscular Hemoglobin 29 PG (27-34); Mean Corpuscular Volume 90.7 FL (87-102); Mean Platelet Volume 11.2 FL (9.6-12.0); Monocytes # 0.5 10*3/uL (0.11-0.8); Monocytes % 9.4 % (1.7-12.7); Neutrophils # 2.9 10*3/uL (1.4-7.4); Neutrophils % 57.9 % (38.7-73.9); Platelet Count 182 T/CUMM (130-400); Red Blood Count 3.55 MC/CUMM (3.8-5.5); Red Cell Distribution Width 15.3 % (9.3-17.3)
[2018-04-26 06:39] LABS: Calcium 8.4 MG/DL (8.5-10.1); Osmolality,Calculated 293.7 MOS/KG (273-304); Potassium 4.5 MMOL/L (3.5-5.1)
[2018-04-26 06:43] LABS: Albumin 2.8 G/DL (3.4-5.0); Bilirubin,Total 0.7 MG/DL (0.2-1.0); Calcium 8.2 MG/DL (8.5-10.1); Osmolality,Calculated 294.7 MOS/KG (273-304); Potassium 4.6 MMOL/L (3.5-5.1); Risk Ratio 3.32; VLDL CHOLESTEROL 50.2 MG/DL
[2018-04-26] MEDS: LEVOTHYROXINE 75 MCG TABLET PO SCH (07:02)
[2018-04-26] MEDS: ENOXAPARIN 30 MG/0.3 ML SYRINGE SUBCUT SCH (08:58)
[2018-04-26] MEDS: DILTIAZEM CD 120 MG CAPSULE PO SCH (08:59)
[2018-04-26] MEDS: hydroCHLOROthiazide 25 MG TABLET PO SCH (08:59)
[2018-04-26] MEDS: PREGABALIN 75 MG CAPSULE PO SCH (08:59)
[2018-04-26] MEDS: CHOLECALCIFEROL 5,000 UNIT TABLET PO SCH (09:00)
[2018-04-26] MEDS: OLMESARTAN 20 MG TABLET PO SCH (09:00)
[2018-04-26] MEDS: CARVEDILOL 12.5 MG TABLET PO SCH ×2 (09:00→21:07)
[2018-04-26] MEDS: MULTIVITAMIN (CENTRUM) TABLET PO SCH (09:00)
[2018-04-26] MEDS: ASPIRIN EC 81 MG TABLET PO SCH (21:07)
[2018-04-26] MEDS: ROSUVASTATIN 10 MG TABLET PO SCH (21:07)
[2018-04-27] MEDS: SODIUM CHLORIDE 0.9% 1,000 ML IV SCH (05:01)
[2018-04-27] MEDS: LEVOTHYROXINE 75 MCG TABLET PO SCH (06:20)
[2018-04-27 06:21] LABS: Calcium 7.9 MG/DL (8.5-10.1); Osmolality,Calculated 296.6 MOS/KG (273-304); Potassium 4.5 MMOL/L (3.5-5.1)
[2018-04-27] MEDS: CARVEDILOL 12.5 MG TABLET PO SCH (10:16)
[2018-04-27] MEDS: OLMESARTAN 20 MG TABLET PO SCH (10:17)
[2018-04-27] MEDS: CHOLECALCIFEROL 5,000 UNIT TABLET PO SCH (10:17)
[2018-04-27] MEDS: PREGABALIN 75 MG CAPSULE PO SCH (10:17)
[2018-04-27] MEDS: hydroCHLOROthiazide 25 MG TABLET PO SCH (10:17)
[2018-04-27] MEDS: DILTIAZEM CD 120 MG CAPSULE PO SCH (10:18)
[2018-04-27] MEDS: ENOXAPARIN 30 MG/0.3 ML SYRINGE SUBCUT SCH (10:23)
[2018-04-27] MEDS: MULTIVITAMIN (CENTRUM) TABLET PO SCH (10:25)
[2018-04-27 11:19] VITALS: BP 163/84
== END 2018-04-27 14:15 | disposition home or self-care (01) | DRG 313 ==
LOC: EDUNIT# → EDBD → N.ED 04:06 → N.EDINP 07:03 → N.2W 11:12 → N.3E 13:49
PROVIDERS: ADMIT Internal Medicine Infectious Disease; ATTEND Internal Medicine Infectious Disease